=== PATIENT | female | born 1940 | race Caucasian/White ===

== ENCOUNTER 2017-02-08 08:12 | Day surgery (SDC) | payer MEDICARE, BC ==
[~2017-02-08 08:12] MED LIST: Metoclopramide 10 MG/2 ML SDV IV PRN; Sodium Chloride 0.9% 1,000 ML IV SCH; Sodium Chloride 0.9% 10 ML Syringe FLUSH PRN
[2017-02-08] MEDS ORDERED: Propofol 200 MG/20 ML SDV ONE (10:10)
[2017-02-08 11:22] VITALS: BP 130/68
--- NOTE | 2017-02-09 16:19 | OR ---
DATE OF OPERATION: 02/08/2017 PREOPERATIVE DIAGNOSIS: History of polyps. POSTOPERATIVE DIAGNOSIS: Diverticulosis. PROCEDURE: Colonoscopy. ANESTHESIA: General anesthesia per Michael العراقي CRNA. ESTIMATED BLOOD LOSS: Less than 20 mL. DESCRIPTION OF PROCEDURE: After informed consent was obtained, the patient was taken to the endoscopy suite, and placed in a left lateral decubitus position with all pressure points, bony prominences, and neurovascular bundles padded appropriately and with no undue tension. The department of anesthesia initiated cardiopulmonary monitoring and performed sedation. A digital rectal examination was performed which was within normal limits. Then, a well lubricated Olympus colonoscope was inserted into the anus and advanced through the rectum, sigmoid colon, descending colon, splenic flexure, transverse colon, hepatic flexure, ascending colon, and cecum. The prep was excellent allowing for complete visualization of all mucosal surfaces. There were diverticula in the sigmoid colon, none of which were impacted, bleeding, or inflamed. The scope was slowly withdrawn from the cecum and all surface mucosal anatomy was again reviewed without any further abnormalities being identified. The colonoscope was straightened, as much air as possible was evacuated, and the colonoscope was removed. The patient tolerated the procedure well and was taken to the postanesthesia care unit in stable condition. MARIANGEL/RAMYA /[id number]
== END 2017-02-08 12:00 | disposition home or self-care (01) ==
LOC: LB.SDS 08:12
PROVIDERS: ATTEND Surgery
DX: Z12.11 Encounter for screening for malignant neoplasm of colon (principal); K57.30 Diverticulosis of large intestine without perforation or abscess without bleeding; Z88.8 Allergy status to other drugs, medicaments and biological substances; Z79.82 Long term (current) use of aspirin; Z79.899 Other long term (current) drug therapy
CPT/HCPCS: G0105; J2704; J7040

== ENCOUNTER 2017-11-25 20:52 | Emergency (ER) | payer MEDICARE, BC ==
[2017-11-25] MEDS ORDERED: Morphine 2 MG/ML Syringe SUBCUT ONE (22:00)
[2017-11-25] MEDS ORDERED: Ondansetron 4 MG/2 ML SDV IVPUSH ONE (22:45)
[2017-11-25] MEDS ORDERED: Morphine 2 MG/ML Syringe IVPUSH ONE (23:40)
[2017-11-25] MEDS ORDERED: Ketorolac 30 MG/ML SDV IVPUSH ONE (23:45)
--- NOTE | 2017-11-25 23:54 | ER ---
HISTORY OF PRESENT ILLNESS: A 77-year-old female who comes in by ambulance. She fell tonight while twisting. She states that she hurt her right hip. She thinks she broke it. She denies any other injuries. She is pointing directly over the greater trochanter area on the right hip when describing where it hurts. She states she cannot bear weight on that leg, and she noticed that her foot was turned out. OBJECTIVE: GENERAL APPEARANCE: The patient is awake and alert. She is pleasant and talkative. VITAL SIGNS: Reviewed as listed. EXTREMITIES: Examining the right hip reveals tenderness over the greater trochanter area that is quite localized. There is no pain with palpation of the inguinal area and the thigh and knee are nontender. She has good circulation involving the lower leg and foot on the right side. LAB AND X-RAY: X-ray of the right hip was obtained showing a fracture through the greater and lesser trochanter. This looks like there is some impaction as well. DIAGNOSIS: Hip fracture, right side. TREATMENT PLAN: I consulted with Orthopedics Dr. Wyman, who accepted the patient. He then put me in touch with the hospitalist, Dr. Beckford, who accepted the patient and she will be transferred by ground ambulance [facility]. She was given Morphine and Toradol IV for pain. And Zofran for nausea before leaving our facility. CRS/MODL /[id number] MTDD
[2017-11-26 03:45] VITALS: BP 148/75
--- NOTE | 2017-11-28 02:07 | CR ---
RIGHT HIP, 11/25/17 There is a nondisplaced avulsion fracture through the base of the lesser trochanter. There is also an oblique intertrochanteric fracture with minimal displacement. There is slight foreshortening of the right femoral neck suggesting a mildly impacted subcapital femoral neck fracture also. No other acute abnormalities. [id number] [facility]
== END 2017-11-26 00:40 ==
LOC: LB.ED 20:52
DX: S72.111A Displaced fracture of greater trochanter of right femur, initial encounter for closed fracture (principal); S72.121A Displaced fracture of lesser trochanter of right femur, initial encounter for closed fracture; X50.1XXA Overexertion from prolonged static or awkward postures, initial encounter; W19.XXXA Unspecified fall, initial encounter
CPT/HCPCS: 36415; 51702; 73552-RT; 80053; 85025; 85610; 96372; 96374; 96375; 99283; 99284-25; A0425; A0429; J1885; J2270; J2405

== ENCOUNTER 2017-12-08 11:02 | Inpatient (IN) | payer MEDICARE, BC ==
[2017-12-08] MEDS ORDERED: Tuberculin, PPD 5 Units/0.1 ML 1 ML MDV IDERM ONE (16:59)
[2017-12-08] MEDS ORDERED: Albuterol 8 GM Inhaler INH PRN (17:00)
[2017-12-08] MEDS ORDERED: Calcium Carbonate 500 MG Tab.Chew PO PRN (17:00)
[2017-12-08] MEDS ORDERED: Zolpidem 5 MG Tab PO PRN (17:00)
--- NOTE | 2017-12-08 17:07 | PCM.HP ---
H&P History of Present Illness - General Date of Service: 12/08/17 Admit Problem/Dx: Admission Diagnosis/Problem Admission Diagnosis/Problem Weakness Source of Information: Patient History Limitations: Reports: No Limitations - History of Present Illness Initial Comments - Free Text/Narative: Pt had right hip fracture and underwent right cephalomedullary nailing done by on 11/26/17. Pt has under gone OT and pt and presently able to ambulate with single assistance and walker. she is weight bearing. She has her suture removed today and transferred her for ot and PT care. Pt claims she feels fine. no fever or chills. Not much pain at the surgical site. Improves with: Reports: None Worsens with: Reports: None Associated Symptoms: Denies: Confusion, Chest Pain, Cough, Diaphoresis, Fever/ Chills, Headaches, Nausea/Vomiting, Rash, Seizure, Shortness of Breath, Syncope , Weakness Right Leg Pain Score (Numeric/FACES): 4 - Related Data Allergies/Adverse Reactions: Allergies Allergy/AdvReac Type Severity Reaction Status Date / Time fluticasone propionate Allergy Cannot Verified 12/08/17 16:25 [From Advair Diskus] Remember niacin Allergy Cannot Verified 12/08/17 16:25 Remember pentazocine lactate Allergy Cannot Verified 12/08/17 16:25 [From Kwame] Remember salmeterol xinafoate Allergy Cannot Verified 12/08/17 16:25 [From Advair Diskus] Remember Home Medications: Home Meds Albuterol [Ventolin HFA] 1 - 2 puff INH QID PRN 11/26/17 [History] Calcium Carbonate [Calcium] 500 mg PO Q4HR PRN 11/26/17 [History] Esomeprazole [NexIUM] 40 mg PO DAILY 11/26/17 [History] Aspirin 81 mg PO BID 12/08/17 [History] Calcium Carbonate/Vitamin D3 [Calcium 500-Vit D3 200 Caplet] 1 tab PO BIDMEALS 12/08/17 [History] Ergocalciferol (Vitamin D2) [Vitamin D2] 50,000 unit PO WEEKLY 12/08/17 [History ] Naproxen 1 tab PO Q12HR 12/08/17 [History] Polyethylene Glycol 3350 17 gm PO DAILY 12/08/17 [History] Sennosides/Docusate Sodium [Senna-Docusate Sodium] 1 tab PO BID 12/08/17 [ History] Warfarin [Coumadin] 5 mg PO DAILY 12/08/17 [History] Zolpidem [Ambien] 5 mg PO QPM PRN 12/08/17 [History] traMADol [Ultram] 50 mg PO Q4H PRN 12/08/17 [History] Past Medical History HEENT History: Reports: Cataract, Impaired Vision, Other (See Below) Other HEENT History: Benign paroxismal positional vertigo Cardiovascular History: Reports: Heart Murmur, Hypertension Respiratory History: Reports: Asthma, Sleep Apnea, Other (See Below) Other Respiratory History: environmental allergies Gastrointestinal History: Reports: GERD, Pancreatitis Other Gastrointestinal History: autoimmune pancreatitis, 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 stress incontinence [employer] History: Reports: Ectopic , Other OB/BYN History: 1965 etopic Musculoskeletal History: Reports: Arthritis, Back Pain, Chronic Other Musculoskeletal History: hx # vertebrae T-5-7, possibly d/t osteoprosis/ osteoarthritis +a fall Neurological History: Reports: TIA Other Neuro History: april 29 TIA Hematologic History: Reports: Anesthesia Reaction, Blood Transfusion(s), Other ( See Below) Other Hematologic History: unexpected E antibody for blood transfusions Immunologic History: Reports: Other (See Below) Other Immunologic History: autoimmune pancreatitis - Infectious Disease History Infectious Disease History: Reports: Chicken Pox, Influenza, Measles, Mumps, Pertussis (Whooping Cough), Rubella, Other (See Below) Other Infectious Disease History: polio at 13yrs old - Past Surgical History GI Surgical History: Reports: Appendectomy Other GI Surgeries/Procedures: 1963 apendectomy wit etopic Female Surgical History: Reports: Other (See Below) Other Female Surgeries/Procedures: fallopian tubes removed with etopic sx Musculoskeletal Surgical History: Reports: Knee Replacement, Other (See Below) Other Musculoskeletal Surgeries/Procedures:: hip # with two rods, bilateral knee replacement Social & Family History - Family History Family Medical History: Noncontributory - Tobacco Use Smoking Status *Q: Never Smoker Second Hand Smoke Exposure: No - Caffeine Use Caffeine Use: Reports: Soda, Tea Other Caffeine Use: 3 bags of tea/day, 20oz pop/day - Recreational Drug Use Recreational Drug Use: No H&P Review of Systems - Review of Systems: Review Of Systems: See Below General: Denies: Fever, Chills, Malaise, Weakness, Night Sweats HEENT: Denies: Rhinitis, Sinus Congestion, Sore Throat, Visual Changes Pulmonary: Denies: Shortness of Breath, Wheezing, Cough, Sputum Cardiovascular: Denies: Chest Pain, Lightheadedness Gastrointestinal: Denies: Abdominal Pain, Constipation, Diarrhea, Nausea, Vomiting Genitourinary: Denies: Dysuria, Frequency, Discharge, Abnormal Menses Musculoskeletal: Denies: Neck Pain, Shoulder Pain, Foot Pain, Joint Pain, Joint Swelling Skin: Reports: Wound. Denies: Pruritis, Rash Psychiatric: Denies: Confusion Exam - Exam Exam: See Below - Vital Signs Vital Signs: Last Vital Signs Temp 98.3 F 12/08/17 14:05 Pulse 79 12/08/17 14:05 Resp 16 12/08/17 14:05 BP 142/62 H 12/08/17 14:05 Pulse Ox 100 12/08/17 14:05 Weight: 73.391 kg - Exam General: Alert HEENT: PERRLA, Hearing Intact, Mucosa Moist & [place], Nares Patent, Normal Nasal Septum, Posterior Pharynx Clear, Conjunctiva Clear, EOMI, EACs Clear, TMs Clear Neck: Supple, Trachea Midline, 2 Lungs: Clear to Auscultation, Normal Respiratory Effort Cardiovascular: Regular Rate, Regular Rhythm GI/Abdominal Exam: Normal Bowel Sounds, Soft, Non-Tender, No Organomegaly, No Distention, No Abnormal Bruit, No Mass, Pelvis Stable Extremities: Normal Range of Motion, Non-Tender, No Pedal Edema, Normal Capillary Refill, Other (right hip: there is well healed wound over the lateeral asepct of the hip and upper thigh. no skin dehiscence. minimal tenderness around the wound. there is skin bruising over the medail asepct of the thigh and upper leg. able to weight bear.) *Q Meaningful Use (ADM) - VTE *Q VTE Criteria *Q: - Stroke *Q Stroke Criteria *Q: - AMI *Q AMI Criteria *Q: - Problem List (1) Status post hip surgery SNOMED Code(s): 128946562 ICD Code: Z98.890 - OTHER SPECIFIED POSTPROCEDURAL STATES Status: Acute Current Visit: Yes Problem List Initiated/Reviewed/Updated: Yes Orders Last 24hrs: Active Orders 24 hr Category Date Time Status Patient Status [ADT] Routine ADT 12/08/17 16:49 Ordered Bedrest Bathroom Privileges [RC] ASDIRECTED Care 12/08/17 16:49 Ordered Height and Weight [RC] UPON Care 12/08/17 16:49 Ordered Oxygen Therapy [RC] PRN Care 12/08/17 16:49 Ordered VTE/DVT Education [RC] Per Unit Routine Care 12/08/17 16:49 Ordered Vital Signs [RC] Q4H Care 12/08/17 16:49 Ordered OT Evaluation and Treatment [CONS] Routine Cons 12/08/17 16:49 Ordered PT Evaluation and Treatment [CONS] Routine Cons 12/08/17 16:49 Ordered Regular Diet [DIET] Diet 12/08/17 Dinner Ordered CULTURE MRSA SURVEY [RM] Routine Lab 12/08/17 16:22 Received INR,PT,PROTHROMBIN TIME [COAG] Routine Lab 12/09/17 08:00 Ordered Albuterol [Ventolin HFA] Med 12/08/17 17:00 Ordered 1 - 2 puff INH QID PRN Aspirin Med 12/08/17 20:00 Ordered 81 mg PO BID Calcium Carbonate Med 12/08/17 17:00 Ordered 500 mg PO Q4HR PRN Calcium Carbonate/Vitamin D3 [Calcium Carbonate/Vitamin Med 12/08/17 17:00 Ordered D 1250 MG-200 Unit] 1 tab PO BIDMEALS Docusate Sodium/Sennosides [Senna Plus] Med 12/08/17 20:00 Ordered 1 tab PO BID Ergocalciferol (Vitamin D2) [Vitamin D2] Med 12/08/17 17:00 Ordered 50,000 units PO WEEKLY Esomeprazole [NexIUM] Med 12/09/17 08:00 Ordered 40 mg PO DAILY Naproxen [Naprosyn] Med 12/08/17 20:00 Ordered 1 tab PO Q12HR Polyethylene Glycol 3350 [MiraLAX] Med 12/09/17 08:00 Ordered 17 gm PO DAILY Tuberculin, PPD [Aplisol] Med 12/08/17 16:59 Once 5 unit IDERM ONETIME ONE Warfarin [Coumadin] Med 12/09/17 08:00 Ordered 5 mg PO DAILY Zolpidem [Ambien] Med 12/08/17 17:00 Ordered 5 mg PO QPM PRN traMADol [Ultram] Med 12/08/17 17:00 Ordered 50 mg PO Q4H PRN Resuscitation Status Routine Resus Stat 12/08/17 16:49 Ordered Medication Orders Tuberculin PPD (Aplisol) 5 unit IDERM ONETIME ONE Stop: 12/08/17 17:00 Assessment/Plan Comment:: Assessment : S/P Right hip surgery Plan: pt has been progressing well. The surgical site appears clean and [id number]. Will have ot and pt evaluation. Will continue her discharge medications. When pt is able to do her ADLs with out help and able to ambulate with out pain will plan on discharge. Also I have ordered INR for tomorrow.
[2017-12-08] MEDS: Calcium Carbonate/Vitamin D3 1250 MG-200 Unit Tab PO SCH (18:20)
[2017-12-08] MEDS: traMADol 50 MG Tab PO PRN ×2 (18:38→23:00)
[2017-12-08] MEDS: Aspirin 81 MG Tab.Chew PO SCH (19:29)
[2017-12-08] MEDS: Naproxen 250 MG Tab PO SCH (19:29)
[2017-12-09] MEDS: traMADol 50 MG Tab PO PRN ×2 (06:40→12:37)
[2017-12-09] MEDS: Esomeprazole 40 MG Cap PO SCH (08:17)
[2017-12-09] MEDS: Naproxen 250 MG Tab PO SCH ×2 (08:17→19:55)
[2017-12-09] MEDS: Aspirin 81 MG Tab.Chew PO SCH ×2 (08:17→19:55)
[2017-12-09] MEDS: Calcium Carbonate/Vitamin D3 1250 MG-200 Unit Tab PO SCH ×2 (08:17→17:16)
[2017-12-09] MEDS: Polyethylene Glycol 3350 Powder 17 GM Packet PO SCH (08:20)
[2017-12-09] MEDS: Warfarin 5 MG Tab PO SCH (17:17)
[2017-12-10] MEDS: Aspirin 81 MG Tab.Chew PO SCH ×2 (08:16→20:06)
[2017-12-10] MEDS: Polyethylene Glycol 3350 Powder 17 GM Packet PO SCH (08:17)
[2017-12-10] MEDS: Esomeprazole 40 MG Cap PO SCH (08:17)
[2017-12-10] MEDS: Calcium Carbonate/Vitamin D3 1250 MG-200 Unit Tab PO SCH ×2 (08:17→17:27)
[2017-12-10] MEDS: Naproxen 250 MG Tab PO SCH ×2 (08:17→20:06)
[2017-12-10] MEDS: traMADol 50 MG Tab PO PRN (08:39)
[2017-12-10] MEDS: Warfarin 5 MG Tab PO SCH (17:27)
[2017-12-11] MEDS: Naproxen 250 MG Tab PO SCH ×2 (08:26→19:28)
[2017-12-11] MEDS: Calcium Carbonate/Vitamin D3 1250 MG-200 Unit Tab PO SCH ×2 (08:27→17:39)
[2017-12-11] MEDS: Aspirin 81 MG Tab.Chew PO SCH ×2 (08:27→19:28)
[2017-12-11] MEDS: Esomeprazole 40 MG Cap PO SCH (08:27)
[2017-12-11] MEDS: Polyethylene Glycol 3350 Powder 17 GM Packet PO SCH (08:27)
[2017-12-11] MEDS: traMADol 50 MG Tab PO PRN ×3 (08:38→23:03)
[2017-12-11] MEDS: Warfarin 5 MG Tab PO SCH (17:39)
[2017-12-12] MEDS: Calcium Carbonate/Vitamin D3 1250 MG-200 Unit Tab PO SCH ×2 (07:32→17:45)
[2017-12-12] MEDS: Aspirin 81 MG Tab.Chew PO SCH ×2 (07:32→20:34)
[2017-12-12] MEDS: Naproxen 250 MG Tab PO SCH (07:32)
[2017-12-12] MEDS: Polyethylene Glycol 3350 Powder 17 GM Packet PO SCH (07:32)
[2017-12-12] MEDS: Esomeprazole 40 MG Cap PO SCH (07:33)
[2017-12-12] MEDS: traMADol 50 MG Tab PO PRN ×2 (08:04→17:47)
[2017-12-12] MEDS: Warfarin 5 MG Tab PO SCH (17:45)
[2017-12-13] MEDS: Calcium Carbonate/Vitamin D3 1250 MG-200 Unit Tab PO SCH (07:59)
[2017-12-13] MEDS: Esomeprazole 40 MG Cap PO SCH (07:59)
[2017-12-13] MEDS: Aspirin 81 MG Tab.Chew PO SCH ×2 (07:59→20:10)
[2017-12-13] MEDS: Polyethylene Glycol 3350 Powder 17 GM Packet PO SCH (07:59)
[2017-12-13] MEDS: traMADol 50 MG Tab PO PRN ×2 (08:04→12:58)
[2017-12-13] MEDS: Warfarin 5 MG Tab PO SCH (17:21)
[2017-12-13] MEDS: Calcium Carbonate/Vitamin D3 1500 MG-400 Units Tab PO SCH (17:21)
--- NOTE | 2017-12-13 18:57 | PCM.DCSUM1 ---
Discharge Summary - Hospital Course Free Text/Narrative:: Pt was admitted for OT and PT s/p intramedullary nailing of the right hip fracture done on 11/26/17. Pt has done well with ambulation, weigh bearing and transfer. OP and PT have cleared her for discharge home as she can take care of the ADLs,with minimal help. Pt has not concerns. Brief History: Pt has right hip intrameduallary nailing done at [facility] on 11/26/17 and was transfered to [facility] for physical rehabilitation. - Discharge Data Discharge Date: 12/14/17 Discharge Disposition: Home, Self-Care 01 Condition: Good - Discharge Diagnosis/Problem(s) (1) Status post hip surgery SNOMED Code(s): 196155694 ICD Code: Z98.890 - OTHER SPECIFIED POSTPROCEDURAL STATES Status: Acute Current Visit: Yes - Patient Summary/Data Consults: Consultations 12/08/17 16:49 OT Evaluation and Treatment [CONS] Routine Please Evaluate and Treat. OT Reason for Consult: ADL's This query below is only for informational purposes and is not editable. PT Evaluation and Treatment [CONS] Routine Please Evaluate and Treat. PT Reason for Consult: Strengthening This query below is only for informational purposes and is not editable. - Patient Instructions Diet: Regular Diet as Tolerated Fluid Restriction: 1500 mL Activity: As Tolerated Showering/Bathing: May Shower Wound/Incision Care: Keep Operative Site/Wound Site Clean and Dry - Discharge Plan Home Medications: Home Meds Albuterol [Ventolin HFA] 1 - 2 puff INH QID PRN 11/26/17 [History] Calcium Carbonate [Calcium] 500 mg PO Q4HR PRN 11/26/17 [History] Esomeprazole [NexIUM] 40 mg PO DAILY 11/26/17 [History] Aspirin 81 mg PO BID 12/08/17 [History] Calcium Carbonate/Vitamin D3 [Calcium 500-Vit D3 200 Caplet] 1 tab PO BIDMEALS 12/08/17 [History] Ergocalciferol (Vitamin D2) [Vitamin D2] 50,000 unit PO WEEKLY 12/08/17 [History ] Polyethylene Glycol 3350 17 gm PO DAILY 12/08/17 [History] Sennosides/Docusate Sodium [Senna-Docusate Sodium] 1 tab PO BID 12/08/17 [ History] Warfarin [Coumadin] 5 mg PO DAILY 12/08/17 [History] Zolpidem [Ambien] 5 mg PO QPM PRN 12/08/17 [History] traMADol [Ultram] 50 mg PO Q4H PRN 12/08/17 [History] traMADol [Ultram] 50 mg PO Q4H PRN tablet 12/13/17 [Rx] - Discharge Summary/Plan Comment DC Time >30 min.: Yes Discharge Summary/Plan Comment: Physical activity per therapy plan. Continue home therapy exercise. PT and INR once a week. Followup with Dr. Salas on 01/16/18 for followup. - General Info Date of Service: 12/14/17 Functional Status: Reports: Tolerating Diet, Ambulating, Urinating - Review of Systems General: Denies: Fever, Weakness HEENT: Denies: Rhinitis, Visual Changes Pulmonary: Denies: Sputum, Hemoptysis Cardiovascular: Denies: Chest Pain, Lightheadedness Gastrointestinal: Denies: Nausea, Vomiting Genitourinary: Denies: Dysuria, Frequency Musculoskeletal: Denies: Joint Pain, Joint Swelling Skin: Reports: Bruising. Denies: Pruritis - Patient Data Vitals - Most Recent: Last Vital Signs Temp 98.4 F 12/13/17 10:00 Pulse 83 12/13/17 10:00 Resp 18 12/13/17 10:00 BP 123/73 12/13/17 10:00 Pulse Ox 97 12/13/17 10:00 Weight - Most Recent: 73.028 kg Med Orders - Current: Current Medications Albuterol (Ventolin Hfa) 0 gm INH QID PRN PRN Reason: Shortness of Breath Aspirin (Aspirin) 81 mg PO BID [facility] Last Admin: 12/13/17 07:59 Dose: 81 mg Calcium Carbonate (Caltrate 600+D 1500 Mg-400 Units) 1 tab PO BIDMEALS [facility] Last Admin: 12/13/17 17:21 Dose: 1 tab Calcium Carbonate/Glycine (Tums) 500 mg PO Q4HR PRN PRN Reason: GERD Ergocalciferol (Vitamin D2) 50,000 units PO Th@0800 [facility] Esomeprazole Magnesium (Nexium) 40 mg PO DAILY [facility] Last Admin: 12/13/17 07:59 Dose: 40 mg Polyethylene Glycol (Miralax) 17 gm PO DAILY [facility] Last Admin: 12/13/17 07:59 Dose: 17 gm Senna/Docusate Sodium (Senna Plus) 1 tab PO BID [facility] Last Admin: 12/13/17 07:59 Dose: 1 tab Tramadol HCl (Ultram) 50 mg PO Q4H PRN PRN Reason: PAIN Last Admin: 12/13/17 12:58 Dose: 50 mg Warfarin Sodium (Coumadin) 5 mg PO DAILY@1800 [facility] Last Admin: 12/13/17 17:21 Dose: 5 mg Zolpidem Tartrate (Ambien) 5 mg PO QPM PRN PRN Reason: Insomnia Discontinued Medications Calcium Carbonate (Calcium Carbonate/Vitamin D 1250 Mg-200 Unit) 1 tab PO BIDMEALS [facility] Last Admin: 12/13/17 07:59 Dose: 1 tab Naproxen (Naprosyn) 250 mg PO Q12HR [facility] Last Admin: 12/12/17 07:32 Dose: 250 mg Tuberculin PPD (Aplisol) 5 unit IDERM ONETIME ONE Stop: 12/08/17 17:00 Last Admin: 12/08/17 19:51 Dose: 5 unit - Exam General: Reports: Alert, Oriented HEENT: Reports: Pupils Equal, Pupils Reactive, EOMI, Mucous Membr. Moist/[place] Neck: Reports: Supple Lungs: Reports: Clear to Auscultation, Normal Respiratory Effort Cardiovascular: Reports: Regular Rate, Regular Rhythm GI/Abdominal Exam: Normal Bowel Sounds, Soft, Non-Tender, No Organomegaly, No Distention, No Abnormal Bruit, No Mass, Pelvis Stable Extremities: Other (There is well healed scar over the lateral aspect of right hip. Minimal tenerensss and bruising of the skin. Good ROM of the right hip. Ambulate and wieght bearing well. ) *Q Meaningful Use (DIS) - VTE *Q VTE Criteria *Q: - Stroke *Q Stroke Criteria *Q: - AMI *Q AMI Criteria *Q:
[2017-12-14] MEDS: traMADol 50 MG Tab PO PRN (04:26)
[2017-12-14] MEDS: Esomeprazole 40 MG Cap PO SCH (07:19)
[2017-12-14] MEDS: Polyethylene Glycol 3350 Powder 17 GM Packet PO SCH (07:19)
[2017-12-14] MEDS: Calcium Carbonate/Vitamin D3 1500 MG-400 Units Tab PO SCH (07:19)
[2017-12-14] MEDS: Aspirin 81 MG Tab.Chew PO SCH (07:19)
[2017-12-14 10:08] VITALS: BP 120/66
[2017-12-15] MEDS ORDERED: Ergocalciferol (Vitamin D2) 50,000 Unit Cap PO SCH (08:00)
== END 2017-12-14 14:30 | disposition home or self-care (01) | DRG 948 ==
LOC: LB.MS 11:02 → UNDOADMIN 11:02 → LB.MS 13:33 → UNDOADMIN 13:33 → LB.MS 16:49
PROVIDERS: ADMIT Family Medicine; ATTEND Family Medicine
DX: R53.1 Weakness (principal); S72.001D Fracture of unspecified part of neck of right femur, subsequent encounter for closed fracture with routine healing; Z98.890 Other specified postprocedural states; Z66 Do not resuscitate; Z86.73 Personal history of transient ischemic attack (TIA), and cerebral infarction without residual deficits; Z11.1 Encounter for screening for respiratory tuberculosis; M54.9 Dorsalgia, unspecified; G89.29 Other chronic pain; M19.90 Unspecified osteoarthritis, unspecified site; J45.909 Unspecified asthma, uncomplicated; K21.9 Gastro-esophageal reflux disease without esophagitis; H54.7 Unspecified visual loss; Z88.8 Allergy status to other drugs, medicaments and biological substances; Z96.653 Presence of artificial knee joint, bilateral; Z79.82 Long term (current) use of aspirin; Z79.01 Long term (current) use of anticoagulants
CPT/HCPCS: 85610; 86580; 97116-GP; 97161-GP; 97165-GO; 97530-GP; 97535-GO; A9270-GY

== ENCOUNTER 2018-05-27 15:37 | Emergency (ER) | payer MEDICARE, BC ==
[2018-05-27] MEDS ORDERED: Ibuprofen 800 MG Tab ONE ×4 (18:01→18:16)
[2018-05-27 18:32] VITALS: BP 142/84
--- NOTE | 2018-05-27 18:52 | EDM.PDOC ---
ED HPI GENERAL MEDICAL PROBLEM - General Chief Complaint: General Stated Complaint: HIP PAIN Time Seen by Provider: 05/27/18 18:00 Source of Information: Reports: Patient, Family History Limitations: Reports: No Limitations - History of Present Illness INITIAL COMMENTS - FREE TEXT/NARRATIVE: Patient is a 77 year old woman who fell and broke her pelvis on May 04, 2018. She has been on pain pills and has been doing PT for the last few weeks per Dr. Mcdowell's treatment plan but she feels that her pain has worsened with all the activity and she wonders if the pelvic fractures are healing correctly and she would like a study to determin the answer to her question. 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: NSAIDS, Other Medication(s) (Tramadol) - Related Data Allergies Allergy/AdvReac Type Severity Reaction Status Date / Time fluticasone propionate Allergy Cannot Verified 12/08/17 16:25 [From Advair Diskus] Remember niacin Allergy Cannot Verified 12/08/17 16:25 Remember pentazocine lactate Allergy Cannot Verified 12/08/17 16:25 [From Talwin] Remember salmeterol xinafoate Allergy Cannot Verified 12/08/17 16:25 [From Advair Diskus] Remember Home Meds: Home Meds Albuterol [Ventolin HFA] 1 - 2 puff INH QID PRN 11/26/17 [History] Calcium Carbonate [Calcium] 500 mg PO Q4HR PRN 11/26/17 [History] Esomeprazole [NexIUM] 40 mg PO DAILY 11/26/17 [History] Aspirin 81 mg PO BID 12/08/17 [History] Calcium Carbonate/Vitamin D3 [Calcium 500-Vit D3 200 Caplet] 1 tab PO BIDMEALS 12/08/17 [History] Ergocalciferol (Vitamin D2) [Vitamin D2] 50,000 unit PO WEEKLY 12/08/17 [History ] Polyethylene Glycol 3350 17 gm PO DAILY 12/08/17 [History] Sennosides/Docusate Sodium [Senna-Docusate Sodium] 1 tab PO BID 12/08/17 [ History] Warfarin [Coumadin] 5 mg PO DAILY 12/08/17 [History] Zolpidem [Ambien] 5 mg PO QPM PRN 12/08/17 [History] traMADol [Ultram] 50 mg PO Q4H PRN tablet 12/13/17 [Rx] Past Medical History HEENT History: Reports: Cataract, Impaired Vision, Other (See Below) Other HEENT History: Benign paroxismal positional vertigo Cardiovascular History: Reports: Heart Murmur, Hypertension Respiratory History: Reports: Asthma, Sleep Apnea, Other (See Below) Other Respiratory History: environmental allergies Gastrointestinal History: Reports: GERD, Pancreatitis Other Gastrointestinal History: autoimmune pancreatitis, 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: Ectopic , Other [employer] TECHNICAL ARCHITECT History: 1965 etopic Musculoskeletal History: Reports: Arthritis, Back Pain, Chronic Other Musculoskeletal History: hx # vertebrae T-5-7, possibly d/t osteoprosis/ osteoarthritis +a fall Neurological History: Reports: TIA Other Neuro History: april 29 TIA Hematologic History: Reports: Anesthesia Reaction, Blood Transfusion(s), Other ( See Below) Other Hematologic History: unexpected E antibody for blood transfusions Immunologic History: Reports: Other (See Below) Other Immunologic History: autoimmune pancreatitis - Infectious Disease History Infectious Disease History: Reports: Chicken Pox, Influenza, Measles, Mumps, Pertussis (Whooping Cough), Rubella, Other (See Below) Other Infectious Disease History: polio at 13yrs old - Past Surgical History GI Surgical History: Reports: Appendectomy Other GI Surgeries/Procedures: 1963 apendectomy wit etopic Female Surgical History: Reports: Other (See Below) Other Female Surgeries/Procedures: fallopian tubes removed with etopic sx Musculoskeletal Surgical History: Reports: Knee Replacement, Other (See Below) Other Musculoskeletal Surgeries/Procedures:: hip # with two rods, bilateral knee replacement Social & Family History - Family History Family Medical History: Noncontributory - Caffeine Use Caffeine Use: Reports: Soda, Tea Other Caffeine Use: 3 bags of tea/day, 20oz pop/day ED ROS GENERAL - Review of Systems Review Of Systems: See Below Constitutional: Reports: No Symptoms HEENT: Reports: No Symptoms Respiratory: Reports: No Symptoms Cardiovascular: Reports: No Symptoms Endocrine: Reports: No Symptoms GI/Abdominal: Reports: No Symptoms : Reports: No Symptoms Musculoskeletal: Reports: Other (Pain in pelvic region.) Skin: Reports: No Symptoms Neurological: Reports: No Symptoms Psychiatric: Reports: No Symptoms Hematologic/Lymphatic: Reports: No Symptoms ED EXAM, GENERAL - Physical Exam Exam: See Below Exam Limited By: No Limitations General Appearance: Alert, WD/WN, No Apparent Distress Ears: Normal External Exam, Normal Canal, Hearing Grossly Normal, Normal TMs Nose: Normal Inspection, Normal Mucosa, No Blood Throat/Mouth: Normal Inspection, Normal Lips, Normal Teeth, Normal Gums, Normal Oropharynx, Normal Voice, No Airway Compromise Head: Atraumatic, Normocephalic Neck: Normal Inspection, Supple, Non-Tender, Full Range of Motion Respiratory/Chest: No Respiratory Distress, Lungs Clear, Normal Breath Sounds, No Accessory Muscle Use, Chest Non-Tender Cardiovascular: Normal Peripheral Pulses, Regular Rate, Rhythm, No Edema, No Gallop, No JVD, No Murmur, No Rub Extremities: Other (Pain in the pelvic region. CT of pelvis shows healing pelvic rim fractures.) Neurological: Alert, Oriented, CN II-XII Intact, Normal Cognition, Normal Gait, Normal Reflexes, No Motor/Sensory Deficits Psychiatric: Normal Affect, Normal Mood Skin Exam: Warm, Dry, Intact, Normal Color, No Rash Course - Vital Signs Text/Narrative:: Patient was given 800 mg of Ibuprofen and after the CT showed healing fractures and her lab work was stable and not worrisome, she wanted to go home. She will follow up with PT and Dr. Mcdowell next week. Last Recorded V/S: Last Vital Signs Temp 36.8 C 05/27/18 18:32 Pulse 88 05/27/18 18:32 Resp 16 05/27/18 18:32 BP 142/84 H 05/27/18 18:32 Pulse Ox 100 05/27/18 18:32 - Orders/Labs/Meds Orders: Active Orders 24 hr Category Date Time Status Pelvis wo Cont [CT] Stat Exams 05/27/18 17:01 Taken Labs: Laboratory Tests 05/27/18 05/27/18 Range/Units 18:05 18:05 WBC 6.5 D (4.0-11.0) K/uL RBC 4.18 (3.80-5.80) M/uL Hgb 11.7 (11.5-16.5) g/dL Hct 34.7 L (37.0-47.0) % MCV 83 (76-96) fL MCH 28.0 (27.0-32.0) pg MCHC 33.7 (31.0-35.0) g/dL RDW 14.9 (11.0-16.0) % Plt Count 245 D (150-500) K/uL MPV 7.8 (6.0-10.0) fL Neut % (Auto) 73.2 H (45.0-70.0) % Lymph % (Auto) 14.9 L (20.0-40.0) % Jennings % (Auto) 7.7 (3.0-10.0) % Eos % (Auto) 2.8 (1.0-5.0) % Baso % (Auto) 1.4 H (0.0-0.5) % Neut # (Auto) 4.75 (2.00-7.50) K/uL Lymph # (Auto) 0.97 L (1.50-4.00) K/uL Jennings # (Auto) 0.50 (0.20-0.80) K/uL Eos # (Auto) 0.18 (0.04-0.40) K/uL Baso # (Auto) 0.09 (0.02-0.10) K/uL Sodium 131 L (136-145) mmol/L Potassium 3.7 (3.5-5.1) mmol/L Chloride 96 L (98-107) mmol/L Carbon Dioxide 31.8 (21.0-32.0) mmol/L Anion Gap 6.9 (5.0-15.0) mmol/L BUN 9 (8-26) mg/dL Creatinine 0.74 (0.55-1.02) mg/dL Est Cr Clr Drug Dosing TNP Estimated GFR (MDRD) > 60 (>60) MLS/MIN BUN/Creatinine Ratio 12.2 (6-25) Glucose 122 H (74-100) mg/dL Calcium 8.8 (8.5-10.1) mg/dL Total Bilirubin 0.6 (0.0-1.0) mg/dL AST 21 (15-37) U/L ALT 19 (12-78) U/L Alkaline Phosphatase 136 H (46-116) U/L Total Protein 7.3 (6.4-8.2) g/dL Albumin 3.3 L (3.4-5.0) g/dL Globulin 4.0 (2.2-4.2) g/dL Albumin/Globulin Ratio 0.8 (0.8-2.0) Meds: Medications Discontinued Medications Generic Name Dose Route Start Last Admin Trade Name Dolores PRN Reason Stop Dose Admin Ibuprofen Confirm 05/27/18 18:01 Motrin Administered 05/27/18 18:02 Dose 800 mg .ROUTE .STK-MED ONE Ibuprofen Confirm 05/27/18 18:14 Motrin Administered 05/27/18 18:15 Dose 800 mg .ROUTE .STK-MED ONE Ibuprofen Confirm 05/27/18 18:16 Motrin Administered 05/27/18 18:17 Dose 800 mg .ROUTE .STK-MED ONE Departure - Departure Time of Disposition: 18:56 Disposition: Home, Self-Care 01 Condition: Good Clinical Impression: Pelvic ring fracture Qualifiers: Encounter type: sequela Fracture type: closed Qualified Code(s): S32.810S - Multiple fractures of pelvis with stable disruption of pelvic ring, sequela - Discharge Information Referrals: PCP,None [Primary Care Provider] - - My Orders Last 24 Hours: My Active Orders 05/27/18 17:01 Pelvis wo Cont [CT] Stat - Assessment/Plan Last 24 Hours: My Active Orders 05/27/18 17:01 Pelvis wo Cont [CT] Stat
--- NOTE | 2018-05-29 03:47 | CT ---
PELVIC CT, 05/27/18 Multislice axial acquisition was performed. Axial images and sagittal and coronal reformations are reviewed. The patient is status post internal fixation of an intertrochanteric fracture with a intramedullary naima and compression screw. The fracture fragments are in anatomic alignment and position. There is a partially healed horizontal fracture through the mid sacrum. There are partially healed fractures through the right acetabulum, anterior column. There are also partially healed fractures through the right pubic bone and inferior pubic ramus. There are old healed fractures through the superior and inferior pubic rami on the left. No other fractures. There is a 4.8 cm founded fluid density lesion in the region of the left ovary and adnexa Cystic ovarian neoplasm should be considered. TEAM CDL DRIVER consultation is recommended. No other significant findings. [id number] [facility]
== END 2018-05-27 18:50 | disposition home or self-care (01) ==
LOC: LB.ED 15:37
DX: S32.810S Multiple fractures of pelvis with stable disruption of pelvic ring, sequela (principal); I10 Essential (primary) hypertension; Z88.8 Allergy status to other drugs, medicaments and biological substances; Z79.01 Long term (current) use of anticoagulants; Z79.899 Other long term (current) drug therapy
CPT/HCPCS: 36415; 72192; 80053; 85025; 96374; 99284-25; A9270-GY

== ENCOUNTER 2018-05-30 07:50 | Emergency (ER) | payer MEDICARE, BC ==
[2018-05-30 09:02] VITALS: BP 146/75
--- NOTE | 2018-05-30 11:14 | CT ---
DATE OF SERVICE: 05/30/18 CLINICAL DATA: CONSTIPATION UNENHANCED ABDOMEN AND PELVIC CT: Multislice acquisition through the abdomen and pelvis without IV or oral contrast was performed. No priors. There are linear densities in both lung bases consistent with linear atelectasis or fibrosis. The lung bases are otherwise clear. The unenhanced liver appears normal. The gallbladder is absent and there are surgical clips in the gallbladder fossa consistent with prior cholecystectomy. The spleen appears normal. The pancreas is unremarkable. The right and left adrenals appear normal. The right and left kidneys appear normal. No nephrocalcinosis or nephrolithiasis. No hydronephrosis or hydroureter. The bladder is fluid-filled and appears normal. There is a 5.8 cm rounded fluid density mass in the region of the left ovary and adnexa. This could represent an ovarian cyst. Cystic ovarian neoplasm should be considered. SURVEY DATA TECHNICIAN consultation is recommended. No evidence of appendicitis. There is diffuse gastric wall thickening. This is probably related to nondistension. Gastritis or an infiltrating process should be considered. There is diverticulosis of the descending and sigmoid colon. No evidence of diverticulitis. No free air. No free fluid. No dilated loops of bowel. No adenopathy. No aortic aneurysm. There is a moderate amount of stool noted throughout the colon. The patient is status post internal fixation of a right hip fracture. There are fractures involving the pubic bones and pubic rami bilaterally. These appear to be subacute or chronic. No other significant findings. [id number] [facility]
--- NOTE | 2018-05-30 16:21 | ER ---
HPI: A 77-year-old lady, who comes in by ambulance with complaints of constipation. She tells me she has not had a good bowel movement in several days. She did fall on May 04, 2018, and sustained a pelvic and sacrum fractures. This happened in [place]. She has been at home since her injury. She is in physical therapy. She states that her pain when she is resting is tolerable. With movement, it seems to be worse. She has been taking Ultram and Aleve on a p.r.n. basis. She does have senna at home that she uses for a laxative, and she likes to eat prunes, but tells me that lately it does not seem to be working so well. She did give herself a Fleet enema yesterday, but did not feel like she had any results OBJECTIVE: GENERAL APPEARANCE: The patient is awake and alert, pleasant, and talkative. No obvious distress. VITAL SIGNS: Reviewed. Blood pressure 157/74, pulse 88, O2 saturations are 100% on room air. ABDOMEN: Soft. Nontender with palpation. Bowel sounds are hypoactive. SKIN: Warm and dry. LUNGS: Clear. CARDIAC: Heart sounds distinct without murmurs. LABORATORY DATA: Labs today include a CBC showing a normal white count and hemoglobin. Viral markers are slightly elevated. Comprehensive metabolic panel is also unremarkable. CT of the abdomen and pelvis reveals the previous fractures, which included mid sacral fracture and 3 pelvic fractures. There is a moderate amount of stool retention in the proximal colon. DIAGNOSIS: Constipation, moderate in nature. TREATMENT PLAN: Magnesium citrate will be prescribed 1 pint taken today. She can repeat this tomorrow if needed. She is to also continue on her Senokot, but I want her to take Senokot-S 2 tablets a day regularly, not p.r.n. The patient is almost out of her Ultram tablets. I will give her a new script for 20 more tablets. I do want the patient to increase her liquid intake slightly and try to incorporate some apple juice or prune juice rather than just whole prunes if she would rather do that. I do want the patient to follow up with Dr. Mcdowell as soon as possible. She states that her next scheduled appointment with him is in 2 weeks. She has been seen 3 times within the last few days in the emergency room. I would like her to follow up with Dr. Mcdowell as soon as she could to keep her primary involved in her care. The patient is here with her daughter. They have no further questions. KWASI/MODGi /[id number]
== END 2018-05-30 10:15 | disposition home or self-care (01) ==
LOC: LB.ED 07:50
DX: K59.00 Constipation, unspecified (principal)
CPT/HCPCS: 36415; 74176; 80053; 85025; 99284; A0425; A0429

== ENCOUNTER 2021-03-09 15:00 | Emergency (ER) | payer MEDICARE, BC ==
[2021-03-09 15:30] VITALS: BP 147/77; PULSE 98
[2021-03-09] MEDS: Ketorolac 30 MG/ML SDV IM ONE (15:30)
[2021-03-09] MEDS: Ketorolac 30 MG/ML SDV ONE (15:50)
--- NOTE | 2021-03-09 17:02 | EDM.PDOC ---
ED HPI GENERAL MEDICAL PROBLEM - General Chief Complaint: General Stated Complaint: BACK PAIN Time Seen by Provider: 03/09/21 15:10 - History of Present Illness INITIAL COMMENTS - FREE TEXT/NARRATIVE: patient here due to worsening of her lower back pain. Reports a remote history of chronic back pain due to disc disease and old fractures. Usually uses a walker. Reports that 3 days ago, she was busy gardening and pushed some heavy pots - and after that night - she notice lower back spasms. no weakness or numbness. tried Aleve and tramadol with some relief. 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 - Related Data Allergies Allergy/AdvReac Type Severity Reaction Status Date / Time fluticasone propionate Allergy Cannot Verified 12/08/17 16:25 [From Advair Diskus] Remember niacin Allergy Cannot Verified 12/08/17 16:25 Remember pentazocine lactate Allergy Cannot Verified 12/08/17 16:25 [From Talwin] Remember salmeterol xinafoate Allergy Cannot Verified 12/08/17 16:25 [From Advair Diskus] Remember Home Meds: Home Meds Albuterol [Ventolin HFA] 1 - 2 puff INH QID PRN 11/26/17 [History] Calcium Carbonate [Calcium] 500 mg PO Q4HR PRN 11/26/17 [History] Esomeprazole [NexIUM] 40 mg PO DAILY 11/26/17 [History] Aspirin 81 mg PO DAILY 12/08/17 [History] Calcium Carbonate/Vitamin D3 [Calcium 500-Vit D3 200 Caplet] 1 tab PO BIDMEALS 12/08/17 [History] Ergocalciferol (Vitamin D2) [Vitamin D2] 50,000 unit PO WEEKLY 12/08/17 [History] Sennosides/Docusate Sodium [Senna-Docusate Sodium] 1 tab PO BID 12/08/17 [History] Warfarin [Coumadin] 5 mg PO DAILY 12/08/17 [History] Zolpidem [Ambien] 5 mg PO QPM PRN 12/08/17 [History] polyethylene glycoL 3350 [Polyethylene Glycol 3350] 17 gm PO DAILY 12/08/17 [History] traMADol [Ultram] 50 mg PO Q4H PRN tablet 12/13/17 [Rx] Cyclobenzaprine [Flexeril] 10 mg PO BEDTIME #10 tab 03/09/21 [Rx] predniSONE [Prednisone] 20 mg PO DAILY 03/09/21 [History] Past Medical History HEENT History: Reports: Cataract, Impaired Vision, Other (See Below) Other HEENT History: Benign paroxismal positional vertigo Cardiovascular History: Reports: Heart Murmur, Hypertension Respiratory History: Reports: Asthma, Sleep Apnea, Other (See Below) Other Respiratory History: environmental allergies Gastrointestinal History: Reports: GERD, Pancreatitis Other Gastrointestinal History: autoimmune pancreatitis, 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 fractured femur. fractuers pelvis Neurological History: Reports: TIA Other Neuro History: april 29 TIA Hematologic History: Reports: Anesthesia Reaction, Blood Transfusion(s), Other (See Below) Other Hematologic History: unexpected E antibody for blood transfusions Immunologic History: Reports: Other (See Below) Other Immunologic History: autoimmune pancreatitis - Infectious Disease History Infectious Disease History: Reports: Chicken Pox, Influenza, Measles, Mumps, Pertussis (Whooping Cough), Rubella, Other (See Below) Other Infectious Disease History: polio at 13yrs old - Past Surgical History GI Surgical History: Reports: Appendectomy Other GI Surgeries/Procedures: 1963 apendectomy wit etopic Female Surgical History: Reports: Other (See Below) Other Female Surgeries/Procedures: fallopian tubes removed with etopic sx Musculoskeletal Surgical History: Reports: Knee Replacement, Other (See Below) Other Musculoskeletal Surgeries/Procedures:: hip # with two rods, bilateral knee replacement Social & Family History - Family History Family Medical History: No Pertinent Family History - Tobacco Use Tobacco Use Status *Q: Never Tobacco User - Caffeine Use Caffeine Use: Reports: None Other Caffeine Use: 3 bags of tea/day, 20oz pop/day ED ROS GENERAL - Review of Systems Review Of Systems: See Below Constitutional: Reports: No Symptoms HEENT: Reports: No Symptoms Respiratory: Reports: No Symptoms Cardiovascular: Reports: No Symptoms Endocrine: Reports: No Symptoms GI/Abdominal: Reports: No Symptoms Musculoskeletal: Reports: Back Pain, Muscle Stiffness Skin: Reports: No Symptoms Neurological: Reports: No Symptoms ED EXAM, GENERAL - Physical Exam Exam: See Below Exam Limited By: No Limitations General Appearance: Alert, WD/WN, No Apparent Distress Eye Exam: Bilateral Eye: EOMI Respiratory/Chest: No Respiratory Distress, Lungs Clear Cardiovascular: Normal Peripheral Pulses GI/Abdominal: Normal Bowel Sounds, Soft Back Exam: Normal Inspection, Decreased Range of Motion, Muscle Spasm, Paraspinal Tenderness. No: Vertebral Tenderness Extremities: Normal Inspection, Normal Range of Motion Neurological: Alert, Oriented, No Motor/Sensory Deficits Psychiatric: Normal Affect, Normal Mood Course - Vital Signs Last Recorded V/S: Last Vital Signs Temp 36.4 C 03/09/21 15:29 Pulse 98 03/09/21 15:29 Resp 16 03/09/21 15:29 BP 147/77 H 03/09/21 15:29 Pulse Ox 98 03/09/21 15:29 - Orders/Labs/Meds Meds: Medications Discontinued Medications Generic Name Dose Route Start Last Admin Trade Name Dolores PRTiff Reason Stop Dose Admin Ketorolac Tromethamine 30 mg 03/09/21 15:33 03/09/21 15:30 Ketorolac 30 Mg/Ml Sdv IM 03/09/21 15:34 30 mg ONETIME ONE Administration Ketorolac Tromethamine Confirm 03/09/21 15:50 Ketorolac 30 Mg/Ml Sdv Administered 03/09/21 15:51 Dose 30 mg .ROUTE .STK-MED ONE - Re-Assessments/Exams Free Text/Narrative Re-Assessment/Exam: was given IM Toradol and Norflex for pain -- reports significant improvement in her pain and able to move around easier than before Departure - Departure Time of Disposition: 16:57 Disposition: Home, Self-Care 01 Condition: Good Clinical Impression: Low back pain Qualifiers: Chronicity: chronic Back pain laterality: bilateral Sciatica presence: without sciatica Qualified Code(s): M54.5 - Low back pain; G89.29 - Other chronic pain - Discharge Information *PRESCRIPTION DRUG MONITORING PROGRAM REVIEWED*: Not Applicable *COPY OF PRESCRIPTION DRUG MONITORING REPORT IN PATIENT TIKA: Not Applicable Prescriptions: Cyclobenzaprine [Flexeril] 10 mg PO BEDTIME #10 tab Instructions: Chronic Back Pain, [id number]-Bafh, Lumbar Strain Referrals: Ernie Mcdowell MD [Primary Care Provider] - Forms: ED Department Discharge Additional Instructions: - avoid any strains on your back - follow up with your PCP in 3-7 days - take muscle relaxants as prescribed ( do not take it with tramadol ). - use heating pads on your lower back - return to the ER if any concerns or worsening of symptoms Sepsis Event Note (ED) - Evaluation Sepsis Screening Result: No Definite Risk - Focused Exam Vital Signs: Vital Signs Temp Pulse Resp BP Pulse Ox 03/09/21 15:29 36.4 C 98 16 147/77 H 98 - Problem List & Annotations (1) Low back pain SNOMED Code(s): 581110561 Code(s): M54.5 - LOW BACK PAIN Status: Acute Priority: Low Current Visit: Yes Qualifiers: Chronicity: chronic Back pain laterality: bilateral Sciatica presence: without sciatica Qualified Code(s): M54.5 - Low back pain; G89.29 - Other chronic pain - Problem List Review Problem List Initiated/Reviewed/Updated: Yes - Assessment/Plan Plan: - avoid any strains on your back - follow up with your PCP in 3-7 days - take muscle relaxants as prescribed ( do not take it with tramadol ). - use heating pads on your lower back - return to the ER if any concerns or worsening of symptoms
[2021-03-09] MEDS: Orphenadrine 60 MG/2 ML Inj IM ONE (19:00)
== END 2021-03-09 17:25 | disposition home or self-care (01) ==
LOC: LB.ED 15:00
DX: G89.29 Other chronic pain (principal); M54.5 Low back pain; I10 Essential (primary) hypertension; J45.909 Unspecified asthma, uncomplicated; K21.9 Gastro-esophageal reflux disease without esophagitis; M19.90 Unspecified osteoarthritis, unspecified site; Z79.82 Long term (current) use of aspirin; Z79.01 Long term (current) use of anticoagulants; Z79.899 Other long term (current) drug therapy; Z88.8 Allergy status to other drugs, medicaments and biological substances; Z86.73 Personal history of transient ischemic attack (TIA), and cerebral infarction without residual deficits
CPT/HCPCS: 96372; 99283; J1885; J2360

== ENCOUNTER 2021-05-19 14:20 | Inpatient (IN) | payer MEDICARE, BC ==
[2021-05-19] MEDS ORDERED: cefTRIAXone 1 GM in Sodium Chloride 0.9% 50 ML IV ONE ×2 (15:11→18:18)
--- NOTE | 2021-05-19 15:19 | EDM.PDOC ---
ED HPI GENERAL MEDICAL PROBLEM - General Chief Complaint: Skin Complaint Stated Complaint: SORE ON LEG Time Seen by Provider: 05/19/21 14:49 Source of Information: Reports: Family History Limitations: Reports: Altered Mental Status - History of Present Illness INITIAL COMMENTS - FREE TEXT/NARRATIVE: pt presents to the ER accompanied by EMS. daughter is caregiver providing jessica weinstein. pt has had increasing lower extremity swelling bilaterally with increased weeping in the last several days. new erythema and warmth to right lower leg starting approximately 1 wk ago according to daughter. slowly spreading to lower leg and knee. pt states TTP to lower legs bilaterally secondary to swelling, R>L. pt denies fever, chills, nausea. she does state "My mental capacity has gone kaput!" daughter also states increasing confusion in recent several weeks with pt needing queuing and increased assistance for ADLs and that she has been increasingly forgetting to take her medications regularly. medical history of vascular dementia, recent tx of UTI approximately 3 weeks ago. Bilateral Back Pain Score (Numeric/FACES): 4 - Related Data Allergies Allergy/AdvReac Type Severity Reaction Status Date / Time fluticasone propionate Allergy Cannot Verified 05/19/21 14:41 [From Advair Diskus] Remember niacin Allergy Cannot Verified 05/19/21 14:41 Remember pentazocine lactate Allergy Cannot Verified 05/19/21 14:41 [From Talwin] Remember salmeterol xinafoate Allergy Cannot Verified 05/19/21 14:41 [From Advair Diskus] Remember Home Meds: Home Meds Aspirin 81 mg PO DAILY 12/08/17 [History] Calcium Carbonate/Vitamin D3 [Calcium 500-Vit D3 200 Caplet] 2 tab PO BIDMEALS 12/08/17 [History] polyethylene glycoL 3350 [Polyethylene Glycol 3350] 17 gm PO DAILY 12/08/17 [History] predniSONE [Prednisone] 20 mg PO DAILY 03/09/21 [History] Calcitonin ([place]) [Miacalcin Nasal [place]] 1 spray NS DAILY 05/19/21 [History] Cetirizine HCl [Aller-Saman] 10 mg PO DAILY 05/19/21 [History] Cholecalciferol (Vitamin D3) [Vitamin D3] 2,000 unit PO DAILY 05/19/21 [History] Furosemide [Lasix] 40 mg PO DAILY 05/19/21 [History] Lidocaine 4% [Aspercreme 4%] 1 patch TRDERM DAILY PRN 05/19/21 [History] Naproxen Sodium [Aleve] 220 mg PO BID PRN 05/19/21 [History] Zinc 50 mg PO DAILY 05/19/21 [History] Past Medical History HEENT History: Reports: Cataract, Impaired Vision, Other (See Below) Other HEENT History: Benign paroxismal positional vertigo Cardiovascular History: Reports: Heart Murmur, Hypertension Respiratory History: Reports: Asthma, Sleep Apnea, Other (See Below) Other Respiratory History: environmental allergies Gastrointestinal History: Reports: GERD, Pancreatitis Other Gastrointestinal History: autoimmune pancreatitis, 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 stress incontinence MENAGERIE CARETAKER History: Reports: Ectopic , Other MENAGERIE CARETAKER History: 1965 etopic Musculoskeletal History: Reports: Arthritis, Back Pain, Chronic Other Musculoskeletal History: hx # vertebrae T-5-7, possibly d/t osteoprosis/osteoarthritis +a fall has compression fractures. fractured femur. fractuers pelvis Neurological History: Reports: TIA Other Neuro History: april 29 TIA Hematologic History: Reports: Anesthesia Reaction, Blood Transfusion(s), Other (See Below) Other Hematologic History: unexpected E antibody for blood transfusions Immunologic History: Reports: Other (See Below) Other Immunologic History: autoimmune pancreatitis - Infectious Disease History Infectious Disease History: Reports: Chicken Pox, Influenza, Measles, Mumps, Pertussis (Whooping Cough), Rubella, Other (See Below) Other Infectious Disease History: polio at 13yrs old - Past Surgical History GI Surgical History: Reports: Appendectomy Other GI Surgeries/Procedures: 1963 apendectomy wit etopic Female Surgical History: Reports: Other (See Below) Other Female Surgeries/Procedures: fallopian tubes removed with etopic sx Musculoskeletal Surgical History: Reports: Knee Replacement, Other (See Below) Other Musculoskeletal Surgeries/Procedures:: hip # with two rods, bilateral knee replacement Social & Family History - Family History Family Medical History: No Pertinent Family History - Caffeine Use Caffeine Use: Reports: None Other Caffeine Use: 3 bags of tea/day, 20oz pop/day ED ROS GENERAL - Review of Systems Review Of Systems: Comprehensive ROS is negative, except as noted in HPI. ED EXAM, SKIN/RASH Exam: See Below Exam Limited By: Altered Mental Status General Appearance: Alert, No Apparent Distress Eye Exam: Bilateral Eye: EOMI, PERRL Throat/Mouth: Normal Inspection, Normal Lips, Normal Teeth, Normal Oropharynx Respiratory/Chest: No Respiratory Distress, Lungs Clear, Normal Breath Sounds, No Accessory Muscle Use Cardiovascular: Normal Peripheral Pulses, Regular Rate, Rhythm, Other (+3-4 pitting edema to lower extremities bilateral) Peripheral Pulses: 1+: Posterior Tibial (L), Posterior Tibial (R), 2+: Radial (L), Radial (R) GI/Abdominal: Soft, Non-Tender Extremities: Pedal Edema, Increased Warmth, Redness Neurological: Alert, Confused, Memory Loss Recent Events Psychiatric: Normal Affect, Normal Mood Skin: Warm (weeping lower extremities. two lesions on left anterior leg and two on right anterior. cobbelstoning of integument just lateral to right knee.) Location, Skin: Lower Extremity, Right Characteristics: Erythematous Associated features: Warmth, Tenderness, Scaling, Weeping #1 Interpretation EKG Date: 05/19/21 Time: 16:20 Rhythm: Other (sinus tachy) [place]: Normal P-Wave: Present QRS: Normal ST-T: Normal QT: Normal Comparison: No Change EKG Interpretation Comments: no ST elevation or depression noted throughout. potential LVH by criteria in (R- wave in aVL 12mm) Course - Vital Signs Last Recorded V/S: Last Vital Signs Temp 97.6 F 05/19/21 14:42 Pulse 101 H 05/19/21 14:42 Resp 20 05/19/21 14:42 BP 121/61 05/19/21 14:42 Pulse Ox 96 05/19/21 14:42 - Orders/Labs/Meds Orders: Active Orders 24 hr Category Date Time Status CBC WITH AUTO DIFF [HEME] Stat Lab 05/19/21 15:06 Ordered COMPREHENSIVE METABOLIC PN,CMP [CHEM] Stat Lab 05/19/21 15:06 Ordered CULTURE BLOOD [BC] Stat Lab 05/19/21 15:07 Ordered CULTURE BLOOD [BC] Stat Lab 05/19/21 15:10 Ordered LACTATE SEPSIS W/ REFLEX [CHEM] Stat Lab 05/19/21 15:07 Ordered MAGNESIUM [CHEM] Stat Lab 05/19/21 15:07 Ordered UA RFX ESMER AND CULT IF INDIC [URIN] Stat Lab 05/19/21 15:06 Ordered cefTRIAXone [Rocephin] 1 gm Med 05/19/21 15:11 Ordered Sodium Chloride 0.9% [Normal Saline] 50 ml IV ONETIME Medication Orders Ceftriaxone Sodium 1 gm/ (Sodium Chloride) 50 mls @ 100 mls/hr IV ONETIME ONE Stop: 05/19/21 15:40 Meds: Medications Generic Name Dose Route Start Last Admin Trade Name Freq PRN Reason Stop Dose Admin Ceftriaxone Sodium 1 gm/ 50 mls @ 100 mls/hr 05/19/21 15:11 Sodium Chloride IV 05/19/21 15:40 ONETIME ONE Departure - Departure Time of Disposition: 16:17 Disposition: Admitted As Inpatient 64 Condition: Fair Clinical Impression: Hypokalemia, UTI (urinary tract infection), Cellulitis of right lower leg, CHF (congestive heart failure) - Discharge Information *PRESCRIPTION DRUG MONITORING PROGRAM REVIEWED*: Not Applicable *COPY OF PRESCRIPTION DRUG MONITORING REPORT IN PATIENT TIKA: Not Applicable Referrals: PCP,None [Primary Care Provider] - Sepsis Event Note (ED) - Evaluation Sepsis Screening Result: No Definite Risk - Focused Exam Vital Signs: Vital Signs Temp Pulse Resp BP Pulse Ox 05/19/21 14:42 97.6 F 101 H 20 121/61 96 05/19/21 14:38 97.2 F 83 18 121/64 95 - Problem List & Annotations (1) Cellulitis of right lower leg SNOMED Code(s): 822291462 Code(s): L03.115 - CELLULITIS OF RIGHT LOWER LIMB Status: Acute Current Visit: Yes (2) Hypokalemia SNOMED Code(s): 85189120 Code(s): E87.6 - HYPOKALEMIA Status: Acute Current Visit: Yes (3) UTI (urinary tract infection) SNOMED Code(s): 41516219 Code(s): N39.0 - URINARY TRACT INFECTION, SITE NOT SPECIFIED Status: Acute Current Visit: Yes Qualifiers: Urinary tract infection type: acute cystitis Hematuria presence: with hematuria Qualified Code(s): N30.01 - Acute cystitis with hematuria (4) CHF (congestive heart failure) SNOMED Code(s): 84509673 Code(s): I50.9 - HEART FAILURE, UNSPECIFIED Status: Acute Current Visit: Yes Qualifiers: Heart failure type: systolic Heart failure chronicity: acute on chronic Qualified Code(s): I50.23 - Acute on chronic systolic (congestive) heart failure - Problem List Review Problem List Initiated/Reviewed/Updated: Yes - My Orders Last 24 Hours: My Active Orders 05/19/21 15:06 CBC WITH AUTO DIFF [HEME] Stat COMPREHENSIVE METABOLIC PN,CMP [CHEM] Stat UA RFX ESMER AND CULT IF INDIC [URIN] Stat 05/19/21 15:07 CULTURE BLOOD [BC] Stat LACTATE SEPSIS W/ REFLEX [CHEM] Stat MAGNESIUM [CHEM] Stat 05/19/21 15:10 CULTURE BLOOD [BC] Stat 05/19/21 15:11 cefTRIAXone [Rocephin] 1 gm Sodium Chloride 0.9% [Normal Saline] 50 ml IV ONETIME - Assessment/Plan Last 24 Hours: My Active Orders 05/19/21 15:06 CBC WITH AUTO DIFF [HEME] Stat COMPREHENSIVE METABOLIC PN,CMP [CHEM] Stat UA RFX ESMER AND CULT IF INDIC [URIN] Stat 05/19/21 15:07 CULTURE BLOOD [BC] Stat LACTATE SEPSIS W/ REFLEX [CHEM] Stat MAGNESIUM [CHEM] Stat 05/19/21 15:10 CULTURE BLOOD [BC] Stat 05/19/21 15:11 cefTRIAXone [Rocephin] 1 gm Sodium Chloride 0.9% [Normal Saline] 50 ml IV ONETIME Assessment:: assessment: cellulitis, UTI, CHF, hypokalemia plan: IV abx, IV diuresis, IV electrolyte replacement, admission to inpatient, accepting eHospitalist Dr. White
[2021-05-19] MEDS ORDERED: Potassium Chloride 40 MEQ/20 ML SDV IV STA (16:22)
[2021-05-19] MEDS ORDERED: Furosemide 40 MG/4 ML VIAL IVPUSH ONE (16:26)
[2021-05-19] MEDS ORDERED: Furosemide 40 MG/4 ML VIAL ONE (16:42)
[2021-05-19] MEDS ORDERED: Potassium Chloride Riders 50 ML ONE ×2 (16:48→17:46)
[2021-05-19] MEDS ORDERED: Potassium Chloride Riders 10 MEQ in Premix Bag 1 BAG IV SCH (17:00)
[2021-05-19] MEDS ORDERED: Potassium Chloride Riders 50 ML IV ONE (18:00)
[2021-05-19] MEDS ORDERED: Naproxen 250 MG Tab PO ONE (18:25)
[2021-05-19] MEDS: Lidocaine 5% 700 MG Patch TRDERM SCH (18:48)
[2021-05-19] MEDS ORDERED: Sodium Chloride 0.9% 10 ML Syringe FLUSH PRN (22:39)
[2021-05-20] MEDS ORDERED: Sodium Chloride 0.9% 1,000 ML IV SCH (00:15)
[2021-05-20] MEDS ORDERED: Potassium Chloride Riders 50 ML ONE ×2 (03:26)
[2021-05-20] MEDS ORDERED: cefTRIAXone 1 GM in Sodium Chloride 0.9% 50 ML IV SCH (08:00)
--- NOTE | 2021-05-20 11:12 | PCM.PN ---
- General Info Date of Service: 05/20/21 Admission Dx/Problem (Free Text): cellulitis of right lower leg UTI CHF acute on chronic hypokalemia Subjective Update: pt has improved edema to bilat lower legs, erythema also improved. increased confusion during the night. 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 Functional Status: Reports: Pain Controlled, Other (reduced appetite, assist of x1 for ADLs) - Review of Systems General: Reports: Weakness, Malaise HEENT: Reports: Sore Throat Pulmonary: Reports: No Symptoms Cardiovascular: Reports: No Symptoms Gastrointestinal: Reports: No Symptoms Genitourinary: Reports: Retention Skin: Reports: Other (erythema of RLE with coinciding calor) Neurological: Reports: Confusion - Patient Data Vitals - Most Recent: Last Vital Signs Temp 98.2 F 05/20/21 08:07 Pulse 101 H 05/20/21 08:07 Resp 18 05/20/21 08:07 BP 123/63 05/20/21 08:07 Pulse Ox 99 05/20/21 08:07 Weight - Most Recent: 164 lb 9.6 oz I&O - Last 24 Hours: Intake & Output 05/19/21 05/20/21 05/20/21 22:59 06:59 14:59 Intake Total 1849 Balance 1849 Lab Results Last 24 Hours: Laboratory Results - last 24 hr 05/19/21 05/19/21 05/19/21 Range/Units 15:23 15:32 15:32 WBC 17.3 H D (4.0-11.0) K/uL RBC 3.53 L (3.80-5.80) M/uL Hgb 10.4 L (11.5-16.5) g/dL Hct 30.5 L (37.0-47.0) % MCV 86 (76-96) fL MCH 29.5 (27.0-32.0) pg MCHC 34.1 (31.0-35.0) g/dL RDW 15.7 (11.0-16.0) % Plt Count 226 (150-500) K/uL MPV 8.4 (6.0-10.0) fL Neut % (Auto) 88.5 H (45.0-70.0) % Lymph % (Auto) 8.7 L (20.0-40.0) % [place] % (Auto) 2.0 L (3.0-10.0) % Eos % (Auto) 0.5 L (1.0-5.0) % Baso % (Auto) 0.3 (0.0-0.5) % Neut # (Auto) 15.36 H (2.00-7.50) K/uL Lymph # (Auto) 1.50 (1.50-4.00) K/uL [place] # (Auto) 0.34 (0.20-0.80) K/uL Eos # (Auto) 0.08 (0.04-0.40) K/uL Baso # (Auto) 0.06 (0.02-0.10) K/uL Sodium 136 (136-145) mmol/L Potassium 2.4 L* D (3.5-5.1) mmol/L Chloride 94 L (98-107) mmol/L Carbon Dioxide 35.0 H (21.0-32.0) mmol/L Anion Gap 9.4 (5.0-15.0) mmol/L BUN 14 D (8-26) mg/dL Creatinine 0.83 (0.55-1.02) mg/dL Est Cr Clr Drug Dosing 43.23 mL/min Estimated GFR (MDRD) > 60 (>60) MLS/MIN BUN/Creatinine Ratio 16.9 (6-25) Glucose 295 H (74-100) mg/dL Lactic Acid (0.4-2.0) mmol/L Calcium 9.3 (8.5-10.1) mg/dL Magnesium (1.8-2.4) mg/dL Total Bilirubin 1.4 H D (0.0-1.0) mg/dL AST 17 (15-37) U/L ALT 33 (12-78) U/L Alkaline Phosphatase 119 H (46-116) U/L B-Natriuretic Peptide (0-450) pg/mL Total Protein 6.0 L (6.4-8.2) g/dL Albumin 2.7 L (3.4-5.0) g/dL Globulin 3.3 (2.2-4.2) g/dL Albumin/Globulin Ratio 0.8 (0.8-2.0) Urine Color Yellow Urine Appearance Clear (CLEAR) Urine pH 5.0 (5.0-8.0) Ur Specific [place] 1.020 (1.003-1.030) Urine Protein 30 H (NEGATIVE) mg/dL Urine Glucose (UA) 500 H (NEGATIVE) mg/dL Urine Ketones Trace H (NEGATIVE) mg/dL Urine Occult Blood Trace-lysed H (NEGATIVE) Urine Nitrite Positive H (NEGATIVE) Urine Bilirubin Negative (NEGATIVE) Urine Urobilinogen 1.0 (0.2-1.0) E.U./dL Ur Leukocyte Esterase Negative (NEGATIVE) Urine RBC 5-10 H /HPF Urine WBC 20-30 H /HPF Urine WBC Clumps Rare /HPF Ur Epithelial Cells Few /HPF Urine Bacteria Many H /HPF SARS-CoV-2 RNA (SHORTY) (NEGATIVE) 05/19/21 05/19/21 05/19/21 Range/Units 15:32 15:37 15:45 WBC (4.0-11.0) K/uL RBC (3.80-5.80) M/uL Hgb (11.5-16.5) g/dL Hct (37.0-47.0) % MCV (76-96) fL MCH (27.0-32.0) pg MCHC (31.0-35.0) g/dL RDW (11.0-16.0) % Plt Count (150-500) K/uL MPV (6.0-10.0) fL Neut % (Auto) (45.0-70.0) % Lymph % (Auto) (20.0-40.0) % [place] % (Auto) (3.0-10.0) % Eos % (Auto) (1.0-5.0) % Baso % (Auto) (0.0-0.5) % Neut # (Auto) (2.00-7.50) K/uL Lymph # (Auto) (1.50-4.00) K/uL [place] # (Auto) (0.20-0.80) K/uL Eos # (Auto) (0.04-0.40) K/uL Baso # (Auto) (0.02-0.10) K/uL Sodium (136-145) mmol/L Potassium (3.5-5.1) mmol/L Chloride (98-107) mmol/L Carbon Dioxide (21.0-32.0) mmol/L Anion Gap (5.0-15.0) mmol/L BUN (8-26) mg/dL Creatinine (0.55-1.02) mg/dL Est Cr Clr Drug Dosing mL/min Estimated GFR (MDRD) (>60) MLS/MIN BUN/Creatinine Ratio (6-25) Glucose (74-100) mg/dL Lactic Acid 2.0 (0.4-2.0) mmol/L Calcium (8.5-10.1) mg/dL Magnesium 1.5 L D (1.8-2.4) mg/dL Total Bilirubin (0.0-1.0) mg/dL AST (15-37) U/L ALT (12-78) U/L Alkaline Phosphatase (46-116) U/L B-Natriuretic Peptide 1132 H D (0-450) pg/mL Total Protein (6.4-8.2) g/dL Albumin (3.4-5.0) g/dL Globulin (2.2-4.2) g/dL Albumin/Globulin Ratio (0.8-2.0) Urine Color Urine Appearance (CLEAR) Urine pH (5.0-8.0) Ur Specific [place] (1.003-1.030) Urine Protein (NEGATIVE) mg/dL Urine Glucose (UA) (NEGATIVE) mg/dL Urine Ketones (NEGATIVE) mg/dL Urine Occult Blood (NEGATIVE) Urine Nitrite (NEGATIVE) Urine Bilirubin (NEGATIVE) Urine Urobilinogen (0.2-1.0) E.U./dL Ur Leukocyte Esterase (NEGATIVE) Urine RBC /HPF Urine WBC /HPF Urine WBC Clumps /HPF Ur Epithelial Cells /HPF Urine Bacteria /HPF SARS-CoV-2 RNA (SHORTY) (NEGATIVE) 05/19/21 05/19/21 05/19/21 Range/Units 15:46 23:00 23:13 WBC (4.0-11.0) K/uL RBC (3.80-5.80) M/uL Hgb (11.5-16.5) g/dL Hct (37.0-47.0) % MCV (76-96) fL MCH (27.0-32.0) pg MCHC (31.0-35.0) g/dL RDW (11.0-16.0) % Plt Count (150-500) K/uL MPV (6.0-10.0) fL Neut % (Auto) (45.0-70.0) % Lymph % (Auto) (20.0-40.0) % [place] % (Auto) (3.0-10.0) % Eos % (Auto) (1.0-5.0) % Baso % (Auto) (0.0-0.5) % Neut # (Auto) (2.00-7.50) K/uL Lymph # (Auto) (1.50-4.00) K/uL [place] # (Auto) (0.20-0.80) K/uL Eos # (Auto) (0.04-0.40) K/uL Baso # (Auto) (0.02-0.10) K/uL Sodium 135 L (136-145) mmol/L Potassium 2.8 L* (3.5-5.1) mmol/L Chloride 95 L (98-107) mmol/L Carbon Dioxide 32.9 H (21.0-32.0) mmol/L Anion Gap 9.9 (5.0-15.0) mmol/L BUN 14 (8-26) mg/dL Creatinine 0.99 (0.55-1.02) mg/dL Est Cr Clr Drug Dosing 33.06 mL/min Estimated GFR (MDRD) 54 L (>60) MLS/MIN BUN/Creatinine Ratio 14.1 (6-25) Glucose 310 H (74-100) mg/dL Lactic Acid 3.7 H (0.4-2.0) mmol/L Calcium 8.6 (8.5-10.1) mg/dL Magnesium (1.8-2.4) mg/dL Total Bilirubin (0.0-1.0) mg/dL AST (15-37) U/L ALT (12-78) U/L Alkaline Phosphatase (46-116) U/L B-Natriuretic Peptide (0-450) pg/mL Total Protein (6.4-8.2) g/dL Albumin (3.4-5.0) g/dL Globulin (2.2-4.2) g/dL Albumin/Globulin Ratio (0.8-2.0) Urine Color Urine Appearance (CLEAR) Urine pH (5.0-8.0) Ur Specific [place] (1.003-1.030) Urine Protein (NEGATIVE) mg/dL Urine Glucose (UA) (NEGATIVE) mg/dL Urine Ketones (NEGATIVE) mg/dL Urine Occult Blood (NEGATIVE) Urine Nitrite (NEGATIVE) Urine Bilirubin (NEGATIVE) Urine Urobilinogen (0.2-1.0) E.U./dL Ur Leukocyte Esterase (NEGATIVE) Urine RBC /HPF Urine WBC /HPF Urine WBC Clumps /HPF Ur Epithelial Cells /HPF Urine Bacteria /HPF SARS-CoV-2 RNA (SHORTY) Negative (NEGATIVE) 05/20/21 05/20/21 Range/Units 07:45 08:00 WBC (4.0-11.0) K/uL RBC (3.80-5.80) M/uL Hgb (11.5-16.5) g/dL Hct (37.0-47.0) % MCV (76-96) fL MCH (27.0-32.0) pg MCHC (31.0-35.0) g/dL RDW (11.0-16.0) % Plt Count (150-500) K/uL MPV (6.0-10.0) fL Neut % (Auto) (45.0-70.0) % Lymph % (Auto) (20.0-40.0) % [place] % (Auto) (3.0-10.0) % Eos % (Auto) (1.0-5.0) % Baso % (Auto) (0.0-0.5) % Neut # (Auto) (2.00-7.50) K/uL Lymph # (Auto) (1.50-4.00) K/uL [place] # (Auto) (0.20-0.80) K/uL Eos # (Auto) (0.04-0.40) K/uL Baso # (Auto) (0.02-0.10) K/uL Sodium 136 (136-145) mmol/L Potassium 3.0 L (3.5-5.1) mmol/L Chloride 99 (98-107) mmol/L Carbon Dioxide 31.6 (21.0-32.0) mmol/L Anion Gap 8.4 (5.0-15.0) mmol/L BUN 15 (8-26) mg/dL Creatinine 0.69 D (0.55-1.02) mg/dL Est Cr Clr Drug Dosing 47.43 mL/min Estimated GFR (MDRD) > 60 (>60) MLS/MIN BUN/Creatinine Ratio 21.7 (6-25) Glucose 266 H (74-100) mg/dL Lactic Acid 1.5 (0.4-2.0) mmol/L Calcium 8.0 L (8.5-10.1) mg/dL Magnesium (1.8-2.4) mg/dL Total Bilirubin (0.0-1.0) mg/dL AST (15-37) U/L ALT (12-78) U/L Alkaline Phosphatase (46-116) U/L B-Natriuretic Peptide (0-450) pg/mL Total Protein (6.4-8.2) g/dL Albumin (3.4-5.0) g/dL Globulin (2.2-4.2) g/dL Albumin/Globulin Ratio (0.8-2.0) Urine Color Urine Appearance (CLEAR) Urine pH (5.0-8.0) Ur Specific [place] (1.003-1.030) Urine Protein (NEGATIVE) mg/dL Urine Glucose (UA) (NEGATIVE) mg/dL Urine Ketones (NEGATIVE) mg/dL Urine Occult Blood (NEGATIVE) Urine Nitrite (NEGATIVE) Urine Bilirubin (NEGATIVE) Urine Urobilinogen (0.2-1.0) E.U./dL Ur Leukocyte Esterase (NEGATIVE) Urine RBC /HPF Urine WBC /HPF Urine WBC Clumps /HPF Ur Epithelial Cells /HPF Urine Bacteria /HPF SARS-CoV-2 RNA (SHORTY) (NEGATIVE) Med Orders - Current: Current Medications Acetaminophen (Acetaminophen 325 Mg Tab) 650 mg PO Q6H PRN PRN Reason: Pain/Fever Docusate Sodium (Docusate Sodium 100 Mg Cap) 100 mg PO BID PRN PRN Reason: Constipation Enoxaparin Sodium (Enoxaparin 40 Mg/0.4 Ml Syringe) 40 mg SUBCUT DAILY [facility] Ceftriaxone Sodium 1 gm/ (Sodium Chloride) 50 mls @ 100 mls/hr IV DAILY [facility] Last Admin: 05/20/21 07:55 Dose: 100 mls/hr Documented by: Sodium Chloride (Normal Saline) 1,000 mls @ 100 mls/hr IV ASDIRECTED JASMINE Lidocaine (Lidocaine 5% 700 Mg Patch) 700 mg TRDERM Q24H [facility] Last Admin: 05/19/21 18:48 Dose: 700 mg Documented by: Sodium Chloride (Sodium Chloride 0.9% 10 Ml Syringe) 10 ml FLUSH ASDIRECTED PRN PRN Reason: Keep Vein Open Discontinued Medications Furosemide (Furosemide 40 Mg/4 Ml Vial) 40 mg IVPUSH NOW ONE Stop: 05/19/21 16:27 Last Admin: 05/19/21 16:34 Dose: 40 mg Documented by: Furosemide (Furosemide 40 Mg/4 Ml Vial) Confirm Administered Dose 40 mg .ROUTE .STK-MED ONE Stop: 05/19/21 16:43 Last Admin: 05/19/21 16:41 Dose: Not Given Documented by: Ceftriaxone Sodium 1 gm/ (Sodium Chloride) 50 mls @ 100 mls/hr IV ONETIME ONE Stop: 05/19/21 15:40 Last Admin: 05/19/21 15:54 Dose: 100 mls/hr Documented by: Potassium Chloride 10 meq/ (Premix) 50 mls @ 50 mls/hr IV Q1H JASMINE Stop: 05/19/21 18:59 Last Admin: 05/19/21 16:38 Dose: 50 mls/hr Documented by: Potassium Chloride (Kcl In Water 10 Meq/50 Ml) Confirm Administered Dose 50 mls @ as directed .ROUTE .STK-MED ONE Stop: 05/19/21 16:49 Last Admin: 05/19/21 17:32 Dose: Not Given Documented by: Potassium Chloride (Kcl In Water 10 Meq/50 Ml) Confirm Administered Dose 50 mls @ as directed .ROUTE .STK-MED ONE Stop: 05/19/21 17:47 Last Admin: 05/19/21 17:58 Dose: Not Given Documented by: Potassium Chloride (Kcl In Water 10 Meq/50 Ml) 50 mls @ 50 mls/hr IV ONETIME ONE Stop: 05/19/21 18:59 Last Admin: 05/19/21 18:02 Dose: 50 mls/hr Documented by: Ceftriaxone Sodium 1 gm/ (Sodium Chloride) 50 mls @ 200 mls/hr IV ONETIME ONE Stop: 05/19/21 18:32 Last Admin: 05/19/21 19:47 Dose: 200 mls/hr Documented by: Potassium Chloride (Kcl In Water 10 Meq/50 Ml) Confirm Administered Dose 50 mls @ as directed .ROUTE .STK-MED ONE Stop: 05/20/21 00:01 Last Admin: 05/20/21 00:30 Dose: 50 mls/hr Documented by: Sodium Chloride (Normal Saline) 1,000 mls @ 333 mls/hr IV BOLUS JASMINE Stop: 05/20/21 03:16 Last Admin: 05/20/21 00:31 Dose: 333 mls/hr Documented by: Potassium Chloride (Kcl In Water 10 Meq/50 Ml) Confirm Administered Dose 50 mls @ as directed .ROUTE .STK-MED ONE Stop: 05/20/21 03:27 Last Admin: 05/20/21 03:27 Dose: 50 mls/hr Documented by: Naproxen (Naproxen 250 Mg Tab) 250 mg PO Q12HR ONE Stop: 05/19/21 18:26 Last Admin: 05/19/21 19:49 Dose: 250 mg Documented by: Potassium Chloride (Potassium Chloride 40 Meq/20 Ml Sdv) 20 meq IV NOW STA Stop: 05/19/21 16:23 - Exam Quality Assessment: Urine Catheter Urinary Catheter Total Time: inserted at approx 3pm on May General: Alert, Cooperative, No Acute Distress HEENT: Pupils Equal, Pupils Reactive, EOMI, Mucous Membr. Moist/[place] Lungs: Clear to Auscultation Cardiovascular: Regular Rate, Regular Rhythm, No Murmurs GI/Abdominal Exam: Normal Bowel Sounds, Soft, Non-Tender Extremities: Pedal Edema, Leg Pain (right lower), Increased Warmth (right lower leg) Peripheral Pulses: 2+: Radial (L), Radial (R), Posterior Tibial (L), Posterior Tibial (R), Dorsalis Pedis (L), Dorsalis Pedis (R) Skin: Warm, Dry, Intact Wound/Incisions: Healing Well, No Drainage Psy/Mental Status: Alert - Patient Data Lab Results Last 24 hrs: Laboratory Results - last 24 hr 05/19/21 05/19/21 05/19/21 Range/Units 15:23 15:32 15:32 WBC 17.3 H D (4.0-11.0) K/uL RBC 3.53 L (3.80-5.80) M/uL Hgb 10.4 L (11.5-16.5) g/dL Hct 30.5 L (37.0-47.0) % MCV 86 (76-96) fL MCH 29.5 (27.0-32.0) pg MCHC 34.1 (31.0-35.0) g/dL RDW 15.7 (11.0-16.0) % Plt Count 226 (150-500) K/uL MPV 8.4 (6.0-10.0) fL Neut % (Auto) 88.5 H (45.0-70.0) % Lymph % (Auto) 8.7 L (20.0-40.0) % [place] % (Auto) 2.0 L (3.0-10.0) % Eos % (Auto) 0.5 L (1.0-5.0) % Baso % (Auto) 0.3 (0.0-0.5) % Neut # (Auto) 15.36 H (2.00-7.50) K/uL Lymph # (Auto) 1.50 (1.50-4.00) K/uL [place] # (Auto) 0.34 (0.20-0.80) K/uL Eos # (Auto) 0.08 (0.04-0.40) K/uL Baso # (Auto) 0.06 (0.02-0.10) K/uL Sodium 136 (136-145) mmol/L Potassium 2.4 L* D (3.5-5.1) mmol/L Chloride 94 L (98-107) mmol/L Carbon Dioxide 35.0 H (21.0-32.0) mmol/L Anion Gap 9.4 (5.0-15.0) mmol/L BUN 14 D (8-26) mg/dL Creatinine 0.83 (0.55-1.02) mg/dL Est Cr Clr Drug Dosing 43.23 mL/min Estimated GFR (MDRD) > 60 (>60) MLS/MIN BUN/Creatinine Ratio 16.9 (6-25) Glucose 295 H (74-100) mg/dL Lactic Acid (0.4-2.0) mmol/L Calcium 9.3 (8.5-10.1) mg/dL Magnesium (1.8-2.4) mg/dL Total Bilirubin 1.4 H D (0.0-1.0) mg/dL AST 17 (15-37) U/L ALT 33 (12-78) U/L Alkaline Phosphatase 119 H (46-116) U/L B-Natriuretic Peptide (0-450) pg/mL Total Protein 6.0 L (6.4-8.2) g/dL Albumin 2.7 L (3.4-5.0) g/dL Globulin 3.3 (2.2-4.2) g/dL Albumin/Globulin Ratio 0.8 (0.8-2.0) Urine Color Yellow Urine Appearance Clear (CLEAR) Urine pH 5.0 (5.0-8.0) Ur Specific [place] 1.020 (1.003-1.030) Urine Protein 30 H (NEGATIVE) mg/dL Urine Glucose (UA) 500 H (NEGATIVE) mg/dL Urine Ketones Trace H (NEGATIVE) mg/dL Urine Occult Blood Trace-lysed H (NEGATIVE) Urine Nitrite Positive H (NEGATIVE) Urine Bilirubin Negative (NEGATIVE) Urine Urobilinogen 1.0 (0.2-1.0) E.U./dL Ur Leukocyte Esterase Negative (NEGATIVE) Urine RBC 5-10 H /HPF Urine WBC 20-30 H /HPF Urine WBC Clumps Rare /HPF Ur Epithelial Cells Few /HPF Urine Bacteria Many H /HPF SARS-CoV-2 RNA (SHORTY) (NEGATIVE) 05/19/21 05/19/21 05/19/21 Range/Units 15:32 15:37 15:45 WBC (4.0-11.0) K/uL RBC (3.80-5.80) M/uL Hgb (11.5-16.5) g/dL Hct (37.0-47.0) % MCV (76-96) fL MCH (27.0-32.0) pg MCHC (31.0-35.0) g/dL RDW (11.0-16.0) % Plt Count (150-500) K/uL MPV (6.0-10.0) fL Neut % (Auto) (45.0-70.0) % Lymph % (Auto) (20.0-40.0) % [place] % (Auto) (3.0-10.0) % Eos % (Auto) (1.0-5.0) % Baso % (Auto) (0.0-0.5) % Neut # (Auto) (2.00-7.50) K/uL Lymph # (Auto) (1.50-4.00) K/uL [place] # (Auto) (0.20-0.80) K/uL Eos # (Auto) (0.04-0.40) K/uL Baso # (Auto) (0.02-0.10) K/uL Sodium (136-145) mmol/L Potassium (3.5-5.1) mmol/L Chloride (98-107) mmol/L Carbon Dioxide (21.0-32.0) mmol/L Anion Gap (5.0-15.0) mmol/L BUN (8-26) mg/dL Creatinine (0.55-1.02) mg/dL Est Cr Clr Drug Dosing mL/min Estimated GFR (MDRD) (>60) MLS/MIN BUN/Creatinine Ratio (6-25) Glucose (74-100) mg/dL Lactic Acid 2.0 (0.4-2.0) mmol/L Calcium (8.5-10.1) mg/dL Magnesium 1.5 L D (1.8-2.4) mg/dL Total Bilirubin (0.0-1.0) mg/dL AST (15-37) U/L ALT (12-78) U/L Alkaline Phosphatase (46-116) U/L B-Natriuretic Peptide 1132 H D (0-450) pg/mL Total Protein (6.4-8.2) g/dL Albumin (3.4-5.0) g/dL Globulin (2.2-4.2) g/dL Albumin/Globulin Ratio (0.8-2.0) Urine Color Urine Appearance (CLEAR) Urine pH (5.0-8.0) Ur Specific [place] (1.003-1.030) Urine Protein (NEGATIVE) mg/dL Urine Glucose (UA) (NEGATIVE) mg/dL Urine Ketones (NEGATIVE) mg/dL Urine Occult Blood (NEGATIVE) Urine Nitrite (NEGATIVE) Urine Bilirubin (NEGATIVE) Urine Urobilinogen (0.2-1.0) E.U./dL Ur Leukocyte Esterase (NEGATIVE) Urine RBC /HPF Urine WBC /HPF Urine WBC Clumps /HPF Ur Epithelial Cells /HPF Urine Bacteria /HPF SARS-CoV-2 RNA (SHORTY) (NEGATIVE) 05/19/21 05/19/21 05/19/21 Range/Units 15:46 23:00 23:13 WBC (4.0-11.0) K/uL RBC (3.80-5.80) M/uL Hgb (11.5-16.5) g/dL Hct (37.0-47.0) % MCV (76-96) fL MCH (27.0-32.0) pg MCHC (31.0-35.0) g/dL RDW (11.0-16.0) % Plt Count (150-500) K/uL MPV (6.0-10.0) fL Neut % (Auto) (45.0-70.0) % Lymph % (Auto) (20.0-40.0) % [place] % (Auto) (3.0-10.0) % Eos % (Auto) (1.0-5.0) % Baso % (Auto) (0.0-0.5) % Neut # (Auto) (2.00-7.50) K/uL Lymph # (Auto) (1.50-4.00) K/uL [place] # (Auto) (0.20-0.80) K/uL Eos # (Auto) (0.04-0.40) K/uL Baso # (Auto) (0.02-0.10) K/uL Sodium 135 L (136-145) mmol/L Potassium 2.8 L* (3.5-5.1) mmol/L Chloride 95 L (98-107) mmol/L Carbon Dioxide 32.9 H (21.0-32.0) mmol/L Anion Gap 9.9 (5.0-15.0) mmol/L BUN 14 (8-26) mg/dL Creatinine 0.99 (0.55-1.02) mg/dL Est Cr Clr Drug Dosing 33.06 mL/min Estimated GFR (MDRD) 54 L (>60) MLS/MIN BUN/Creatinine Ratio 14.1 (6-25) Glucose 310 H (74-100) mg/dL Lactic Acid 3.7 H (0.4-2.0) mmol/L Calcium 8.6 (8.5-10.1) mg/dL Magnesium (1.8-2.4) mg/dL Total Bilirubin (0.0-1.0) mg/dL AST (15-37) U/L ALT (12-78) U/L Alkaline Phosphatase (46-116) U/L B-Natriuretic Peptide (0-450) pg/mL Total Protein (6.4-8.2) g/dL Albumin (3.4-5.0) g/dL Globulin (2.2-4.2) g/dL Albumin/Globulin Ratio (0.8-2.0) Urine Color Urine Appearance (CLEAR) Urine pH (5.0-8.0) Ur Specific [place] (1.003-1.030) Urine Protein (NEGATIVE) mg/dL Urine Glucose (UA) (NEGATIVE) mg/dL Urine Ketones (NEGATIVE) mg/dL Urine Occult Blood (NEGATIVE) Urine Nitrite (NEGATIVE) Urine Bilirubin (NEGATIVE) Urine Urobilinogen (0.2-1.0) E.U./dL Ur Leukocyte Esterase (NEGATIVE) Urine RBC /HPF Urine WBC /HPF Urine WBC Clumps /HPF Ur Epithelial Cells /HPF Urine Bacteria /HPF SARS-CoV-2 RNA (SHORTY) Negative (NEGATIVE) 05/20/21 05/20/21 Range/Units 07:45 08:00 WBC (4.0-11.0) K/uL RBC (3.80-5.80) M/uL Hgb (11.5-16.5) g/dL Hct (37.0-47.0) % MCV (76-96) fL MCH (27.0-32.0) pg MCHC (31.0-35.0) g/dL RDW (11.0-16.0) % Plt Count (150-500) K/uL MPV (6.0-10.0) fL Neut % (Auto) (45.0-70.0) % Lymph % (Auto) (20.0-40.0) % [place] % (Auto) (3.0-10.0) % Eos % (Auto) (1.0-5.0) % Baso % (Auto) (0.0-0.5) % Neut # (Auto) (2.00-7.50) K/uL Lymph # (Auto) (1.50-4.00) K/uL Hudson # (Auto) (0.20-0.80) K/uL Eos # (Auto) (0.04-0.40) K/uL Baso # (Auto) (0.02-0.10) K/uL Sodium 136 (136-145) mmol/L Potassium 3.0 L (3.5-5.1) mmol/L Chloride 99 (98-107) mmol/L Carbon Dioxide 31.6 (21.0-32.0) mmol/L Anion Gap 8.4 (5.0-15.0) mmol/L BUN 15 (8-26) mg/dL Creatinine 0.69 D (0.55-1.02) mg/dL Est Cr Clr Drug Dosing 47.43 mL/min Estimated GFR (MDRD) > 60 (>60) MLS/MIN BUN/Creatinine Ratio 21.7 (6-25) Glucose 266 H (74-100) mg/dL Lactic Acid 1.5 (0.4-2.0) mmol/L Calcium 8.0 L (8.5-10.1) mg/dL Magnesium (1.8-2.4) mg/dL Total Bilirubin (0.0-1.0) mg/dL AST (15-37) U/L ALT (12-78) U/L Alkaline Phosphatase (46-116) U/L B-Natriuretic Peptide (0-450) pg/mL Total Protein (6.4-8.2) g/dL Albumin (3.4-5.0) g/dL Globulin (2.2-4.2) g/dL Albumin/Globulin Ratio (0.8-2.0) Urine Color Urine Appearance (CLEAR) Urine pH (5.0-8.0) Ur Specific [place] (1.003-1.030) Urine Protein (NEGATIVE) mg/dL Urine Glucose (UA) (NEGATIVE) mg/dL Urine Ketones (NEGATIVE) mg/dL Urine Occult Blood (NEGATIVE) Urine Nitrite (NEGATIVE) Urine Bilirubin (NEGATIVE) Urine Urobilinogen (0.2-1.0) E.U./dL Ur Leukocyte Esterase (NEGATIVE) Urine RBC /HPF Urine WBC /HPF Urine WBC Clumps /HPF Ur Epithelial Cells /HPF Urine Bacteria /HPF SARS-CoV-2 RNA (SHORTY) (NEGATIVE) Result Diagrams: 05/19/21 15:32 05/20/21 07:45 Sepsis Event Note - Evaluation Sepsis Screening Result: No Definite Risk - Focused Exam Vital Signs: Vital Signs Temp Pulse Resp BP Pulse Ox 05/20/21 08:07 98.2 F 101 H 18 123/63 99 05/20/21 06:00 97.9 F 98 18 129/63 100 05/20/21 02:49 98.5 F 115 H 18 124/74 92 L 05/20/21 00:24 98.8 F 113 H 18 128/69 100 - Problem List & Annotations (1) Cellulitis of right lower leg SNOMED Code(s): 589128502 Code(s): L03.115 - CELLULITIS OF RIGHT LOWER LIMB Status: Acute Current Visit: Yes Annotation/Comment:: rocephin 1g BID elevate legs (2) Hypokalemia SNOMED Code(s): 63927587 Code(s): E87.6 - HYPOKALEMIA Status: Acute Current Visit: Yes Annotation/Comment:: continue with IV K+ recheck levels in AM (3) UTI (urinary tract infection) SNOMED Code(s): 37499246 Code(s): N39.0 - URINARY TRACT INFECTION, SITE NOT SPECIFIED Status: Acute Current Visit: Yes Qualifiers: Urinary tract infection type: acute cystitis Hematuria presence: with hematuria Qualified Code(s): N30.01 - Acute cystitis with hematuria Annotation/Comment:: covered with rocephin 1g BID (4) CHF (congestive heart failure) SNOMED Code(s): 18043562 Code(s): I50.9 - HEART FAILURE, UNSPECIFIED Status: Acute Current Visit: Yes Qualifiers: Heart failure type: systolic Heart failure chronicity: acute on chronic Qualified Code(s): I50.23 - Acute on chronic systolic (congestive) heart failure Annotation/Comment:: lasix 40mg BID elevate legs BNP recheck in AM - Problem List Review Problem List Initiated/Reviewed/Updated: Yes - My Orders Last 24 Hours: My Active Orders 05/19/21 15:10 CULTURE BLOOD [BC] Stat 05/19/21 15:23 CULTURE BLOOD [BC] Stat CULTURE URINE [RM] Stat 05/19/21 16:33 Admission Diagnosis [ADT] Routine Transfer Patient (Change bed) [ADT] Routine 05/19/21 16:47 Patient Status [ADT] Routine 05/19/21 16:48 Cardiac Monitoring [RC] 08,14,20 05/19/21 18:14 Resuscitation Status Routine 05/19/21 18:19 CULTURE MRSA SURVEY [RM] Routine 05/19/21 18:30 Lidocaine 5% [Lidoderm 5%] 700 mg TRDERM Q24H 05/20/21 Breakfast Regular Diet [DIET] 05/20/21 08:38 PT Evaluation and Treatment [CONS] Routine 05/20/21 10:54 Bedrest Bathroom Privileges [RC] ASDIRECTED Up With Assistance [RC] ASDIRECTED Up to Chair [RC] ASDIRECTED Docusate Sodium [Colace] 100 mg PO BID PRN 05/20/21 10:55 Intake and Output [RC] QSHIFT Oxygen Therapy [RC] PRN VTE/DVT Education [RC] Per Unit Routine Vital Signs [RC] Q4H 05/20/21 11:00 Enoxaparin [Lovenox] 40 mg SUBCUT DAILY 05/21/21 05:11 BASIC METABOLIC PANEL,BMP [CHEM] AM MAGNESIUM [CHEM] AM - Plan Plan:: start PT/OT tomorrow. based on today's assessment and daughters input, I don't think pt will be a candidate to return home on disposition. care planning with PT, OT, social work tomorrow and tuesday.
[2021-05-20] MEDS: Sodium Chloride 0.9% 1,000 ML IV SCH ×2 (12:38→22:54)
[2021-05-20] MEDS: Enoxaparin 40 MG/0.4 ML Syringe SUBCUT SCH (12:49)
[2021-05-20] MEDS ORDERED: Potassium Chloride 40 MEQ/20 ML SDV IV STA (15:30)
[2021-05-20] MEDS: Furosemide 40 MG/4 ML VIAL IVPUSH SCH (15:56)
[2021-05-20] MEDS: Potassium Chloride Riders 50 ML IV SCH ×2 (16:05→17:29)
[2021-05-20] MEDS: Acetaminophen 325 MG Tab PO PRN (17:24)
[2021-05-20] MEDS: cefTRIAXone 1 GM in Sodium Chloride 0.9% 50 ML IV SCH (19:59)
[2021-05-20] MEDS: Lidocaine 5% 700 MG Patch TRDERM SCH (20:00)
[2021-05-20] MEDS: Naproxen 250 MG Tab PO SCH (20:10)
[2021-05-21] MEDS: Furosemide 40 MG/4 ML VIAL IVPUSH SCH (08:03)
[2021-05-21] MEDS: Enoxaparin 40 MG/0.4 ML Syringe SUBCUT SCH (08:03)
[2021-05-21] MEDS: cefTRIAXone 1 GM in Sodium Chloride 0.9% 50 ML IV SCH ×2 (08:04→19:22)
[2021-05-21] MEDS: Naproxen 250 MG Tab PO SCH ×2 (08:05→19:06)
[2021-05-21] MEDS: Lactobacillus Acidophilus/Lactobacillus Sporogenes (Probiotic) Tab PO SCH (08:05)
--- NOTE | 2021-05-21 11:39 | PCM.PN ---
- General Info Date of Service: 05/21/21 Admission Dx/Problem (Free Text): cellulitis of right lower leg UTI CHF acute on chronic hypokalemia Subjective Update: pt has marked improved edema to bilat lower legs, erythema also improved. PT wrapping legs bilaterally to assist with reducing edema decreased confusion during this AM. pt states she is feeling much better while sitting up in chair. she denies pain, states her dysphagia has resolved, denies fever, nausea. also states her weakness has improved. Functional Status: Reports: Pain Controlled, Tolerating Diet, Incentive Spirometry - Review of Systems General: Reports: Weakness HEENT: Reports: No Symptoms Pulmonary: Reports: No Symptoms Cardiovascular: Reports: No Symptoms Gastrointestinal: Reports: No Symptoms Genitourinary: Reports: Retention (perkins in place) Skin: Reports: Other (erythema to RLE) Neurological: Reports: Confusion - Patient Data Vitals - Most Recent: Last Vital Signs Temp 97.7 F 05/21/21 07:49 Pulse 86 05/21/21 07:49 Resp 14 05/21/21 07:49 BP 109/69 05/21/21 08:35 Pulse Ox 94 L 05/21/21 10:00 Weight - Most Recent: 166 lb 3.2 oz I&O - Last 24 Hours: Intake & Output 05/20/21 05/21/21 05/21/21 22:59 06:59 14:59 Intake Total 1350 1250 100 Output Total 600 375 Balance 750 875 100 Lab Results Last 24 Hours: Laboratory Results - last 24 hr 05/21/21 Range/Units 09:30 Sodium 138 (136-145) mmol/L Potassium 2.9 L* (3.5-5.1) mmol/L Chloride 102 (98-107) mmol/L Carbon Dioxide 31.9 (21.0-32.0) mmol/L Anion Gap 7.0 (5.0-15.0) mmol/L BUN 17 (8-26) mg/dL Creatinine 0.69 (0.55-1.02) mg/dL Est Cr Clr Drug Dosing 47.43 mL/min Estimated GFR (MDRD) > 60 (>60) MLS/MIN BUN/Creatinine Ratio 24.6 (6-25) Glucose 167 H D (74-100) mg/dL Calcium 7.7 L (8.5-10.1) mg/dL Magnesium 1.4 L (1.8-2.4) mg/dL B-Natriuretic Peptide 1348 H (0-450) pg/mL Myles Results Last 24 Hours: Microbiology 05/19/21 15:10 Aerobic Blood Culture - Preliminary Blood NO GROWTH AFTER 1 DAY Anaerobic Blood Culture - Preliminary NO GROWTH AFTER 1 DAY 05/19/21 15:23 Aerobic Blood Culture - Preliminary Blood NO GROWTH AFTER 1 DAY Anaerobic Blood Culture - Preliminary NO GROWTH AFTER 1 DAY 05/19/21 18:19 MRSA Surveillance Culture - Final Nares, Left NO MRSA ISOLATED Med Orders - Current: Current Medications Acetaminophen (Acetaminophen 325 Mg Tab) 650 mg PO Q6H PRN PRN Reason: Pain/Fever Last Admin: 05/20/21 17:24 Dose: 650 mg Documented by: Docusate Sodium (Docusate Sodium 100 Mg Cap) 100 mg PO BID PRN PRN Reason: Constipation Enoxaparin Sodium (Enoxaparin 40 Mg/0.4 Ml Syringe) 40 mg SUBCUT DAILY [facility] Last Admin: 05/21/21 08:03 Dose: 40 mg Documented by: Furosemide (Furosemide 40 Mg/4 Ml Vial) 40 mg IVPUSH DAILY [facility] Last Admin: 05/21/21 08:03 Dose: 40 mg Documented by: Ceftriaxone Sodium 1 gm/ (Sodium Chloride) 50 mls @ 100 mls/hr IV BID [facility] Last Admin: 05/21/21 08:04 Dose: 100 mls/hr Documented by: Lactobacillus Acidophilus (Lactobacillus Acidophilus/Lactobacillus Sporogenes (Probiotic) Tab) 1 tab PO DAILY [facility] Last Admin: 05/21/21 08:05 Dose: 1 tab Documented by: Lidocaine (Lidocaine 5% 700 Mg Patch) 700 mg TRDERM Q24H [facility] Magnesium Oxide (Magnesium Oxide 400 Mg Tab) 400 mg PO DAILY [facility] Miscellaneous Information (Remove Patch) 1 ea TRDERM Q24H [facility] Last Admin: 05/21/21 08:05 Dose: 1 ea Documented by: Naproxen (Naproxen 250 Mg Tab) 250 mg PO Q12HR [facility] Last Admin: 05/21/21 08:05 Dose: 250 mg Documented by: Potassium Chloride (Potassium Chloride 20 Meq Tab.Er) 40 meq PO BID [facility] Sodium Chloride (Sodium Chloride 0.9% 10 Ml Syringe) 10 ml FLUSH ASDIRECTED PRN PRN Reason: Keep Vein Open Discontinued Medications Furosemide (Furosemide 40 Mg/4 Ml Vial) 40 mg IVPUSH NOW ONE Stop: 05/19/21 16:27 Last Admin: 05/19/21 16:34 Dose: 40 mg Documented by: Furosemide (Furosemide 40 Mg/4 Ml Vial) Confirm Administered Dose 40 mg .ROUTE .STK-MED ONE Stop: 05/19/21 16:43 Last Admin: 05/19/21 16:41 Dose: Not Given Documented by: Ceftriaxone Sodium 1 gm/ (Sodium Chloride) 50 mls @ 100 mls/hr IV ONETIME ONE Stop: 05/19/21 15:40 Last Admin: 05/19/21 15:54 Dose: 100 mls/hr Documented by: Potassium Chloride 10 meq/ (Premix) 50 mls @ 50 mls/hr IV Q1H [facility] Stop: 05/19/21 18:59 Last Admin: 05/19/21 16:38 Dose: 50 mls/hr Documented by: Potassium Chloride (Kcl In Water 10 Meq/50 Ml) Confirm Administered Dose 50 mls @ as directed .ROUTE .STK-MED ONE Stop: 05/19/21 16:49 Last Admin: 05/19/21 17:32 Dose: Not Given Documented by: Potassium Chloride (Kcl In Water 10 Meq/50 Ml) Confirm Administered Dose 50 mls @ as directed .ROUTE .STK-MED ONE Stop: 05/19/21 17:47 Last Admin: 05/19/21 17:58 Dose: Not Given Documented by: Potassium Chloride (Kcl In Water 10 Meq/50 Ml) 50 mls @ 50 mls/hr IV ONETIME ONE Stop: 05/19/21 18:59 Last Admin: 05/19/21 18:02 Dose: 50 mls/hr Documented by: Ceftriaxone Sodium 1 gm/ (Sodium Chloride) 50 mls @ 200 mls/hr IV ONETIME ONE Stop: 05/19/21 18:32 Last Admin: 05/19/21 19:47 Dose: 200 mls/hr Documented by: Ceftriaxone Sodium 1 gm/ (Sodium Chloride) 50 mls @ 100 mls/hr IV DAILY [facility] Last Admin: 05/20/21 07:55 Dose: 100 mls/hr Documented by: Potassium Chloride (Kcl In Water 10 Meq/50 Ml) Confirm Administered Dose 50 mls @ as directed .ROUTE .STK-MED ONE Stop: 05/20/21 00:01 Last Admin: 05/20/21 00:30 Dose: 50 mls/hr Documented by: Sodium Chloride (Normal Saline) 1,000 mls @ 333 mls/hr IV BOLUS [facility] Stop: 05/20/21 03:16 Last Admin: 05/20/21 00:31 Dose: 333 mls/hr Documented by: Sodium Chloride (Normal Saline) 1,000 mls @ 100 mls/hr IV ASDIRECTED [facility] Last Admin: 05/20/21 22:54 Dose: 100 mls/hr Documented by: Potassium Chloride (Kcl In Water 10 Meq/50 Ml) Confirm Administered Dose 50 mls @ as directed .ROUTE .STK-MED ONE Stop: 05/20/21 03:27 Last Admin: 05/20/21 03:27 Dose: 50 mls/hr Documented by: Potassium Chloride (Kcl In Water 10 Meq/50 Ml) 50 mls @ 50 mls/hr IV Q1H [facility] Stop: 05/20/21 17:59 Last Admin: 05/20/21 17:29 Dose: 50 mls/hr Documented by: Lidocaine (Lidocaine 5% 700 Mg Patch) 700 mg TRDERM Q24H [facility] Last Admin: 05/20/21 20:00 Dose: 700 mg Documented by: Naproxen (Naproxen 250 Mg Tab) 250 mg PO Q12HR ONE Stop: 05/19/21 18:26 Last Admin: 05/19/21 19:49 Dose: 250 mg Documented by: Potassium Chloride (Potassium Chloride 40 Meq/20 Ml Sdv) 20 meq IV NOW STA Stop: 05/19/21 16:23 Potassium Chloride (Potassium Chloride 40 Meq/20 Ml Sdv) 20 meq IV NOW STA Stop: 05/20/21 15:31 - Exam Quality Assessment: Urine Catheter Urinary Catheter Total Time: 0Days 14Hours General: Alert, Oriented, Cooperative HEENT: Pupils Equal, Pupils Reactive, EOMI, Mucous Membr. Moist/[place] Neck: Supple, Trachea Midline Lungs: Crackles (mid and lower lobes bilat) Cardiovascular: Regular Rate, Regular Rhythm, Murmurs Extremities: Pedal Edema (+2), Other ( edema and tenderness and erythema remain although improved from yesterday, markedly. erythema reduced well within skin m arked parameters; +2 pitting edema bilateral) Peripheral Pulses: 2+: Radial (L), Radial (R) Skin: Warm, Dry, Intact Neurological: No New Focal Deficit Psy/Mental Status: Alert, Normal Affect, Normal Mood - Patient Data Lab Results Last 24 hrs: Laboratory Results - last 24 hr 05/21/21 Range/Units 09:30 Sodium 138 (136-145) mmol/L Potassium 2.9 L* (3.5-5.1) mmol/L Chloride 102 (98-107) mmol/L Carbon Dioxide 31.9 (21.0-32.0) mmol/L Anion Gap 7.0 (5.0-15.0) mmol/L BUN 17 (8-26) mg/dL Creatinine 0.69 (0.55-1.02) mg/dL Est Cr Clr Drug Dosing 47.43 mL/min Estimated GFR (MDRD) > 60 (>60) MLS/MIN BUN/Creatinine Ratio 24.6 (6-25) Glucose 167 H D (74-100) mg/dL Calcium 7.7 L (8.5-10.1) mg/dL Magnesium 1.4 L (1.8-2.4) mg/dL B-Natriuretic Peptide 1348 H (0-450) pg/mL Result Diagrams: 05/19/21 15:32 05/21/21 09:30 Myles Results Last 24 hrs: Microbiology 05/19/21 15:10 Aerobic Blood Culture - Preliminary Blood NO GROWTH AFTER 1 DAY Anaerobic Blood Culture - Preliminary NO GROWTH AFTER 1 DAY 05/19/21 15:23 Aerobic Blood Culture - Preliminary Blood NO GROWTH AFTER 1 DAY Anaerobic Blood Culture - Preliminary NO GROWTH AFTER 1 DAY 05/19/21 18:19 MRSA Surveillance Culture - Final Nares, Left NO MRSA ISOLATED Sepsis Event Note - Evaluation Sepsis Screening Result: Sepsis Risk - Focused Exam Vital Signs: Vital Signs Temp Pulse Resp BP BP Pulse Ox Pulse Ox 05/21/21 10:00 94 L 05/21/21 08:35 109/69 05/21/21 07:49 97.7 F 86 14 109/69 100 05/21/21 03:55 98.7 F 91 18 109/62 96 05/20/21 23:40 95 Heart Sounds: Murmur, Murmur, Diastolic Capillary Refill, Detail: Less than/Equal to (</=) 2 Seconds Pulse Description: 2+ Normal Peripheral Pulse Location: Radial Date Exam was Performed: 05/21/21 Time Exam was Performed: 11:30 - Problem List & Annotations (1) Cellulitis of right lower leg SNOMED Code(s): 606363008 Code(s): L03.115 - CELLULITIS OF RIGHT LOWER LIMB Status: Acute Current Visit: Yes Annotation/Comment:: rocephin 1g BID elevate legs leg wraps per PT (2) Hypokalemia SNOMED Code(s): 82816376 Code(s): E87.6 - HYPOKALEMIA Status: Acute Current Visit: Yes Annotation/Comment:: start PO K+ recheck levels in AM start PO Mag (3) UTI (urinary tract infection) SNOMED Code(s): 76909931 Code(s): N39.0 - URINARY TRACT INFECTION, SITE NOT SPECIFIED Status: Acute Current Visit: Yes Qualifiers: Urinary tract infection type: acute cystitis Hematuria presence: with hematuria Qualified Code(s): N30.01 - Acute cystitis with hematuria Annotation/Comment:: covered with rocephin 1g BID (4) CHF (congestive heart failure) SNOMED Code(s): 61499938 Code(s): I50.9 - HEART FAILURE, UNSPECIFIED Status: Acute Current Visit: Yes Qualifiers: Heart failure type: systolic Heart failure chronicity: acute on chronic Qualified Code(s): I50.23 - Acute on chronic systolic (congestive) heart failure Annotation/Comment:: lasix 40mg BID elevate legs leg wraps BNP recheck in AM - Problem List Review Problem List Initiated/Reviewed/Updated: Yes - My Orders Last 24 Hours: My Active Orders 05/20/21 10:54 Bedrest Bathroom Privileges [RC] ASDIRECTED Up With Assistance [RC] ASDIRECTED Up to Chair [RC] ASDIRECTED Docusate Sodium [Colace] 100 mg PO BID PRN 05/20/21 10:55 Intake and Output [RC] 06,18 Oxygen Therapy [RC] DAILY VTE/DVT Education [RC] Per Unit Routine Vital Signs [RC] 00,04,08,12,16,20 05/20/21 11:00 Enoxaparin [Lovenox] 40 mg SUBCUT DAILY 05/20/21 15:30 Insert Urinary Catheter [OM.PC] Q24H 05/20/21 15:31 Urinary Catheter Assessment [RC] 06,18 05/20/21 15:35 Consult to Occupational Therapy [OT Evaluation and Treatment] [CONS] Routine PT Evaluation and Treatment [CONS] Routine 05/20/21 15:45 Furosemide [Lasix] 40 mg IVPUSH DAILY 05/20/21 18:50 Perineal Care [OM.PC] Routine 05/20/21 20:00 Naproxen [Naprosyn] 250 mg PO Q12HR cefTRIAXone [Rocephin] 1 gm Sodium Chloride 0.9% [Normal Saline] 50 ml IV BID 05/21/21 08:00 Acidophilus/Lactobac Spor [Acidolphilus Extra Strength] 1 tab PO DAILY Remove Patch 1 ea TRDERM Q24H 05/21/21 11:30 Magnesium Oxide 400 mg PO DAILY Potassium Chloride [Klor-Con M20] 40 meq PO BID 05/21/21 20:00 Lidocaine 5% [Lidoderm 5%] 700 mg TRDERM Q24H 05/22/21 05:11 B-TYPE NATRIURETIC PEPTIDE,BNP [CHEM] AM 05/22/21 11:27 BASIC METABOLIC PANEL,BMP [CHEM] DAILY 05/23/21 05:00 MAGNESIUM [CHEM] Routine 05/23/21 05:11 B-TYPE NATRIURETIC PEPTIDE,BNP [CHEM] AM 05/23/21 11:27 BASIC METABOLIC PANEL,BMP [CHEM] DAILY 05/24/21 05:11 B-TYPE NATRIURETIC PEPTIDE,BNP [CHEM] AM 05/24/21 11:27 BASIC METABOLIC PANEL,BMP [CHEM] DAILY - Plan Plan:: start PT/OT today PO K+ and Mag and recheck tomorrow start incentive spirometry today stop IV fluids today and start PO start probiotic last night schedule naproxen care plan later today or tomorrow with [employer], PT, OT and nursing for disposition. if pt continues improvement at this rate, there is possibility of SNF admit early as tomorrow 6Aug21.
[2021-05-21] MEDS: Magnesium Oxide 400 MG Tab PO SCH (12:03)
[2021-05-21] MEDS: Potassium Chloride 20 MEQ Tab.ER PO SCH ×2 (12:03→19:08)
[2021-05-21] MEDS: Lidocaine 5% 700 MG Patch TRDERM SCH (19:07)
[2021-05-22] MEDS: Acetaminophen 325 MG Tab PO PRN ×3 (00:18→17:10)
[2021-05-22 07:53] LABS: HEMOGLOBIN A1C 10.1 % (< 5.7)
[2021-05-22] MEDS: Furosemide 40 MG/4 ML VIAL IVPUSH SCH ×4 (08:00→20:36)
[2021-05-22] MEDS: Potassium Chloride 20 MEQ Tab.ER PO SCH ×2 (08:39→19:45)
[2021-05-22] MEDS: Lactobacillus Acidophilus/Lactobacillus Sporogenes (Probiotic) Tab PO SCH (08:39)
[2021-05-22] MEDS: Naproxen 250 MG Tab PO SCH ×2 (08:40→20:37)
[2021-05-22] MEDS: Magnesium Oxide 400 MG Tab PO SCH (08:40)
[2021-05-22] MEDS: Enoxaparin 40 MG/0.4 ML Syringe SUBCUT SCH (08:43)
[2021-05-22] MEDS: cefTRIAXone 1 GM in Sodium Chloride 0.9% 50 ML IV SCH ×2 (09:01→20:38)
--- NOTE | 2021-05-22 12:35 | PCM.PN ---
- General Info Date of Service: 05/22/21 Admission Dx/Problem (Free Text): cellulitis of right lower leg UTI CHF acute on chronic hypokalemia Subjective Update: pt continues improvement edema to bilat lower legs with wraps, erythema also improved today. PT continues wrapping legs bilaterally to assist with reducing edema. PT does not think pt is appropriate to d/c today regarding strength. mentation remains stable, at baseline according to family and friends. she denies pain, fever, nausea. Functional Status: Reports: Pain Controlled, Tolerating Diet - Review of Systems General: Reports: No Symptoms HEENT: Reports: No Symptoms Pulmonary: Reports: No Symptoms Cardiovascular: Reports: No Symptoms Gastrointestinal: Reports: No Symptoms Genitourinary: Reports: No Symptoms Musculoskeletal: Reports: No Symptoms Skin: Reports: Other (lower leg pain and redness) Neurological: Reports: Confusion (recent memory impairment) - Patient Data Vitals - Most Recent: Last Vital Signs Temp 98.8 F 05/22/21 08:00 Pulse 89 05/22/21 08:00 Resp 20 05/22/21 08:00 BP 110/74 05/22/21 08:00 Pulse Ox 95 05/22/21 08:00 Weight - Most Recent: 155 lb 12.8 oz I&O - Last 24 Hours: Intake & Output 05/21/21 05/22/21 05/22/21 22:59 06:59 14:59 Intake Total 350 300 Output Total 100 475 Balance 250 -175 Lab Results Last 24 Hours: Laboratory Results - last 24 hr 05/22/21 05/22/21 05/22/21 Range/Units 07:30 07:30 09:30 Sodium 137 (136-145) mmol/L Potassium 3.5 D (3.5-5.1) mmol/L Chloride 103 (98-107) mmol/L Carbon Dioxide 31.4 (21.0-32.0) mmol/L Anion Gap 6.1 (5.0-15.0) mmol/L BUN 11 D (8-26) mg/dL Creatinine 0.68 (0.55-1.02) mg/dL Est Cr Clr Drug Dosing 48.13 mL/min Estimated GFR (MDRD) > 60 (>60) MLS/MIN BUN/Creatinine Ratio 16.2 (6-25) Glucose 196 H (74-100) mg/dL Hemoglobin A1c 10.1 H (< 5.7) % Calcium 7.6 L (8.5-10.1) mg/dL B-Natriuretic Peptide 2445 H D (0-450) pg/mL Myles Results Last 24 Hours: Microbiology 05/19/21 15:10 Aerobic Blood Culture - Preliminary Blood NO GROWTH AFTER 2 DAYS Anaerobic Blood Culture - Preliminary NO GROWTH AFTER 2 DAYS 05/19/21 15:23 Aerobic Blood Culture - Preliminary Blood NO GROWTH AFTER 2 DAYS Anaerobic Blood Culture - Preliminary NO GROWTH AFTER 2 DAYS 05/19/21 15:23 Urine Culture - Final Urine, Voided Klebsiella Pneumoniae Med Orders - Current: Current Medications Acetaminophen (Acetaminophen 325 Mg Tab) 650 mg PO Q6H PRN PRN Reason: Pain/Fever Last Admin: 05/22/21 09:23 Dose: 650 mg Documented by: Docusate Sodium (Docusate Sodium 100 Mg Cap) 100 mg PO BID PRN PRN Reason: Constipation Enoxaparin Sodium (Enoxaparin 40 Mg/0.4 Ml Syringe) 40 mg SUBCUT DAILY [facility] Last Admin: 05/22/21 08:43 Dose: 40 mg Documented by: Furosemide (Furosemide 40 Mg/4 Ml Vial) 40 mg IVPUSH DAILY [facility] Last Admin: 05/22/21 08:00 Dose: 40 mg Documented by: Ceftriaxone Sodium 1 gm/ (Sodium Chloride) 50 mls @ 100 mls/hr IV BID [facility] Last Admin: 05/22/21 09:01 Dose: 100 mls/hr Documented by: Lactobacillus Acidophilus (Lactobacillus Acidophilus/Lactobacillus Sporogenes (Probiotic) Tab) 1 tab PO DAILY [facility] Last Admin: 05/22/21 08:39 Dose: 1 tab Documented by: Lidocaine (Lidocaine 5% 700 Mg Patch) 700 mg TRDERM Q24H [facility] Last Admin: 05/21/21 19:07 Dose: 700 mg Documented by: Magnesium Oxide (Magnesium Oxide 400 Mg Tab) 400 mg PO DAILY [facility] Last Admin: 05/22/21 08:40 Dose: 400 mg Documented by: Miscellaneous Information (Remove Patch) 1 ea TRDERM Q24H [facility] Last Admin: 05/22/21 08:41 Dose: 1 ea Documented by: Naproxen (Naproxen 250 Mg Tab) 250 mg PO Q12HR [facility] Last Admin: 05/22/21 08:40 Dose: 250 mg Documented by: Potassium Chloride (Potassium Chloride 20 Meq Tab.Er) 40 meq PO BID [facility] Last Admin: 05/22/21 08:39 Dose: 40 meq Documented by: Sodium Chloride (Sodium Chloride 0.9% 10 Ml Syringe) 10 ml FLUSH ASDIRECTED PRN PRN Reason: Keep Vein Open Discontinued Medications Furosemide (Furosemide 40 Mg/4 Ml Vial) 40 mg IVPUSH NOW ONE Stop: 05/19/21 16:27 Last Admin: 05/19/21 16:34 Dose: 40 mg Documented by: Furosemide (Furosemide 40 Mg/4 Ml Vial) Confirm Administered Dose 40 mg .ROUTE .STK-MED ONE Stop: 05/19/21 16:43 Last Admin: 05/19/21 16:41 Dose: Not Given Documented by: Ceftriaxone Sodium 1 gm/ (Sodium Chloride) 50 mls @ 100 mls/hr IV ONETIME ONE Stop: 05/19/21 15:40 Last Admin: 05/19/21 15:54 Dose: 100 mls/hr Documented by: Potassium Chloride 10 meq/ (Premix) 50 mls @ 50 mls/hr IV Q1H [facility] Stop: 05/19/21 18:59 Last Admin: 05/19/21 16:38 Dose: 50 mls/hr Documented by: Potassium Chloride (Kcl In Water 10 Meq/50 Ml) Confirm Administered Dose 50 mls @ as directed .ROUTE .STK-MED ONE Stop: 05/19/21 16:49 Last Admin: 05/19/21 17:32 Dose: Not Given Documented by: Potassium Chloride (Kcl In Water 10 Meq/50 Ml) Confirm Administered Dose 50 mls @ as directed .ROUTE .STK-MED ONE Stop: 05/19/21 17:47 Last Admin: 05/19/21 17:58 Dose: Not Given Documented by: Potassium Chloride (Kcl In Water 10 Meq/50 Ml) 50 mls @ 50 mls/hr IV ONETIME ONE Stop: 05/19/21 18:59 Last Admin: 05/19/21 18:02 Dose: 50 mls/hr Documented by: Ceftriaxone Sodium 1 gm/ (Sodium Chloride) 50 mls @ 200 mls/hr IV ONETIME ONE Stop: 05/19/21 18:32 Last Admin: 05/19/21 19:47 Dose: 200 mls/hr Documented by: Ceftriaxone Sodium 1 gm/ (Sodium Chloride) 50 mls @ 100 mls/hr IV DAILY [facility] Last Admin: 05/20/21 07:55 Dose: 100 mls/hr Documented by: Potassium Chloride (Kcl In Water 10 Meq/50 Ml) Confirm Administered Dose 50 mls @ as directed .ROUTE .STK-MED ONE Stop: 05/20/21 00:01 Last Admin: 05/20/21 00:30 Dose: 50 mls/hr Documented by: Sodium Chloride (Normal Saline) 1,000 mls @ 333 mls/hr IV BOLUS [facility] Stop: 05/20/21 03:16 Last Admin: 05/20/21 00:31 Dose: 333 mls/hr Documented by: Sodium Chloride (Normal Saline) 1,000 mls @ 100 mls/hr IV ASDIRECTED [facility] Last Admin: 05/20/21 22:54 Dose: 100 mls/hr Documented by: Potassium Chloride (Kcl In Water 10 Meq/50 Ml) Confirm Administered Dose 50 mls @ as directed .ROUTE .STK-MED ONE Stop: 05/20/21 03:27 Last Admin: 05/20/21 03:27 Dose: 50 mls/hr Documented by: Potassium Chloride (Kcl In Water 10 Meq/50 Ml) 50 mls @ 50 mls/hr IV Q1H [facility] Stop: 05/20/21 17:59 Last Admin: 05/20/21 17:29 Dose: 50 mls/hr Documented by: Lidocaine (Lidocaine 5% 700 Mg Patch) 700 mg TRDERM Q24H [facility] Last Admin: 05/20/21 20:00 Dose: 700 mg Documented by: Naproxen (Naproxen 250 Mg Tab) 250 mg PO Q12HR ONE Stop: 05/19/21 18:26 Last Admin: 05/19/21 19:49 Dose: 250 mg Documented by: Potassium Chloride (Potassium Chloride 40 Meq/20 Ml Sdv) 20 meq IV NOW STA Stop: 05/19/21 16:23 Potassium Chloride (Potassium Chloride 40 Meq/20 Ml Sdv) 20 meq IV NOW STA Stop: 05/20/21 15:31 - Exam Quality Assessment: Supplemental Oxygen (at night), Urine Catheter, DVT Prophylaxis Urinary Catheter Total Time: 1Days 12Hours General: Alert, Oriented (person, place), Cooperative, No Acute Distress HEENT: Pupils Equal, Pupils Reactive, EOMI, Mucous Membr. Moist/[place] Lungs: Normal Respiratory Effort, Crackles (bases and mid lobes bilat) Cardiovascular: Regular Rate, Regular Rhythm GI/Abdominal Exam: Normal Bowel Sounds, Soft, Non-Tender Extremities: Non-Tender, Pedal Edema (+1-2), Redness (improved from yesterday) Skin: Warm, Intact Wound/Incisions: Healing Well Neurological: No New Focal Deficit Psy/Mental Status: Alert, Normal Affect - Patient Data Lab Results Last 24 hrs: Laboratory Results - last 24 hr 05/22/21 05/22/21 05/22/21 Range/Units 07:30 07:30 09:30 Sodium 137 (136-145) mmol/L Potassium 3.5 D (3.5-5.1) mmol/L Chloride 103 (98-107) mmol/L Carbon Dioxide 31.4 (21.0-32.0) mmol/L Anion Gap 6.1 (5.0-15.0) mmol/L BUN 11 D (8-26) mg/dL Creatinine 0.68 (0.55-1.02) mg/dL Est Cr Clr Drug Dosing 48.13 mL/min Estimated GFR (MDRD) > 60 (>60) MLS/MIN BUN/Creatinine Ratio 16.2 (6-25) Glucose 196 H (74-100) mg/dL Hemoglobin A1c 10.1 H (< 5.7) % Calcium 7.6 L (8.5-10.1) mg/dL B-Natriuretic Peptide 2445 H D (0-450) pg/mL Result Diagrams: 05/19/21 15:32 05/22/21 07:30 Myles Results Last 24 hrs: Microbiology 05/19/21 15:10 Aerobic Blood Culture - Preliminary Blood NO GROWTH AFTER 2 DAYS Anaerobic Blood Culture - Preliminary NO GROWTH AFTER 2 DAYS 05/19/21 15:23 Aerobic Blood Culture - Preliminary Blood NO GROWTH AFTER 2 DAYS Anaerobic Blood Culture - Preliminary NO GROWTH AFTER 2 DAYS 05/19/21 15:23 Urine Culture - Final Urine, Voided Klebsiella Pneumoniae Sepsis Event Note - Evaluation Sepsis Screening Result: No Definite Risk - Focused Exam Vital Signs: Vital Signs Temp Pulse Resp BP Pulse Ox 05/22/21 08:00 98.8 F 89 20 110/74 95 05/22/21 04:00 98.7 F 82 18 102/54 L 90 L 05/22/21 00:00 98.7 F 88 18 119/58 L 98 - Problem List & Annotations (1) Cellulitis of right lower leg SNOMED Code(s): 458085755 Code(s): L03.115 - CELLULITIS OF RIGHT LOWER LIMB Status: Acute Current Visit: Yes Annotation/Comment:: rocephin 1g BID elevate legs leg wraps per PT (2) Hypokalemia SNOMED Code(s): 89261792 Code(s): E87.6 - HYPOKALEMIA Status: Resolved Current Visit: Yes Onset Date: ~05/20/21 Annotation/Comment:: start PO K+ recheck levels in AM start PO Mag resolved May (3) UTI (urinary tract infection) SNOMED Code(s): 90146035 Code(s): N39.0 - URINARY TRACT INFECTION, SITE NOT SPECIFIED Status: Acute Current Visit: Yes Qualifiers: Urinary tract infection type: acute cystitis Hematuria presence: with hematuria Qualified Code(s): N30.01 - Acute cystitis with hematuria Annotation/Comment:: covered with rocephin 1g BID (4) CHF (congestive heart failure) SNOMED Code(s): 63693487 Code(s): I50.9 - HEART FAILURE, UNSPECIFIED Status: Acute Current Visit: Yes Qualifiers: Heart failure type: systolic Heart failure chronicity: acute on chronic Qualified Code(s): I50.23 - Acute on chronic systolic (congestive) heart failure Annotation/Comment:: lasix 40mg BID elevate legs leg wraps BNP recheck in AM - Problem List Review Problem List Initiated/Reviewed/Updated: Yes - My Orders Last 24 Hours: My Active Orders 05/21/21 11:30 Magnesium Oxide 400 mg PO DAILY Potassium Chloride [Klor-Con M20] 40 meq PO BID 05/21/21 11:39 Incentive Spirometry [RT Incentive Spirometry] [RC] Q1HWA 05/21/21 20:00 Lidocaine 5% [Lidoderm 5%] 700 mg TRDERM Q24H 05/22/21 06:08 Renew/Continue Urinary Catheter [OM.PC] Routine 05/23/21 05:00 MAGNESIUM [CHEM] Routine 05/23/21 05:11 B-TYPE NATRIURETIC PEPTIDE,BNP [CHEM] AM 05/23/21 11:27 BASIC METABOLIC PANEL,BMP [CHEM] DAILY 05/24/21 05:11 B-TYPE NATRIURETIC PEPTIDE,BNP [CHEM] AM 05/24/21 11:27 BASIC METABOLIC PANEL,BMP [CHEM] DAILY - Plan Plan:: PT/OT concerned for pt mental status and ADLs continue PO K+ and Mag and recheck tomorrow continue incentive spirometry continue IV abx and lasix restart prednisone from home meds with hx of autoimmune pancreatitis care plan with [employer], PT, OT suggest potential swing bed. pt physical improvement has continued, will continue acute care to monitor pt physical and mental status prior to disposition. potential that confusion is secondary to infection vs vascular dementia. concern for pt at home alone with current level of confusion occurring throughout shift.
[2021-05-22] MEDS: Docusate Sodium 100 MG Cap PO PRN (18:45)
[2021-05-22] MEDS: predniSONE 20 MG Tab PO SCH (18:45)
[2021-05-22] MEDS: metFORMIN 500 MG Tab.ER PO SCH (18:45)
[2021-05-22] MEDS: Lidocaine 5% 700 MG Patch TRDERM SCH (20:43)
[2021-05-23] MEDS ORDERED: metFORMIN 500 MG Tab.ER PO SCH (08:00)
[2021-05-23] MEDS: Naproxen 250 MG Tab PO SCH ×2 (08:14→19:56)
[2021-05-23] MEDS: Lactobacillus Acidophilus/Lactobacillus Sporogenes (Probiotic) Tab PO SCH (08:14)
[2021-05-23] MEDS: Potassium Chloride 20 MEQ Tab.ER PO SCH ×2 (08:14→19:57)
[2021-05-23] MEDS: predniSONE 20 MG Tab PO SCH (08:15)
[2021-05-23] MEDS: Enoxaparin 40 MG/0.4 ML Syringe SUBCUT SCH (08:15)
[2021-05-23] MEDS: Cholecalciferol (Vitamin D3) 2,000 Unit Cap PO SCH (08:15)
[2021-05-23] MEDS: Aspirin 81 MG Tab.Chew PO SCH (08:15)
[2021-05-23] MEDS: Magnesium Oxide 400 MG Tab PO SCH (08:15)
[2021-05-23] MEDS: cefTRIAXone 1 GM in Sodium Chloride 0.9% 50 ML IV SCH ×2 (08:55→20:00)
[2021-05-23] MEDS: Furosemide 40 MG/4 ML VIAL IVPUSH SCH ×2 (09:00→19:56)
--- NOTE | 2021-05-23 10:35 | PCM.PN ---
- General Info Date of Service: 05/23/21 Admission Dx/Problem (Free Text): cellulitis of right lower leg UTI CHF acute on chronic hypokalemia (resolved) Subjective Update: pt continues improvement edema to bilat lower legs with wraps, erythema also improved today. approx 6lb total weight loss since admit. pt impressed by size of her legs yesterday and today leg wraps bilat till tuesday. then rewrap. mentation remains stable, at baseline according to family and friends with intermittent increased confusion. she denies pain, fever, nausea. when asked how pt feels, she states "with my fingers" pt in good spirits. Functional Status: Reports: Pain Controlled, Tolerating Diet - Review of Systems General: Reports: No Symptoms Pulmonary: Reports: No Symptoms Cardiovascular: Reports: No Symptoms Gastrointestinal: Reports: No Symptoms Skin: Reports: No Symptoms Neurological: Reports: Confusion Psychiatric: Reports: Confusion - Patient Data Vitals - Most Recent: Last Vital Signs Temp 98.0 F 05/23/21 08:00 Pulse 81 05/23/21 08:00 Resp 20 05/23/21 08:00 BP 144/70 H 05/23/21 08:00 Pulse Ox 94 L 05/23/21 08:00 Weight - Most Recent: 149 lb 11.2 oz I&O - Last 24 Hours: Intake & Output 05/22/21 05/23/21 05/23/21 22:59 06:59 14:59 Intake Total 400 290 Output Total 200 2700 Balance 200 -2410 Lab Results Last 24 Hours: Laboratory Results - last 24 hr 05/22/21 05/23/21 05/23/21 Range/Units 17:20 05:00 05:11 Sodium 135 L (136-145) mmol/L Potassium 4.3 D (3.5-5.1) mmol/L Chloride 102 (98-107) mmol/L Carbon Dioxide 31.7 (21.0-32.0) mmol/L Anion Gap 5.6 (5.0-15.0) mmol/L BUN 11 (8-26) mg/dL Creatinine 0.87 D (0.55-1.02) mg/dL Est Cr Clr Drug Dosing 37.62 mL/min Estimated GFR (MDRD) > 60 (>60) MLS/MIN BUN/Creatinine Ratio 12.6 (6-25) Glucose 253 H (74-100) mg/dL POC Glucose 176 H (74-110) mg/dL Calcium 8.1 L (8.5-10.1) mg/dL Magnesium 1.6 L (1.8-2.4) mg/dL B-Natriuretic Peptide (0-450) pg/mL 05/23/21 Range/Units 05:11 Sodium (136-145) mmol/L Potassium (3.5-5.1) mmol/L Chloride (98-107) mmol/L Carbon Dioxide (21.0-32.0) mmol/L Anion Gap (5.0-15.0) mmol/L BUN (8-26) mg/dL Creatinine (0.55-1.02) mg/dL Est Cr Clr Drug Dosing mL/min Estimated GFR (MDRD) (>60) MLS/MIN BUN/Creatinine Ratio (6-25) Glucose (74-100) mg/dL POC Glucose (74-110) mg/dL Calcium (8.5-10.1) mg/dL Magnesium (1.8-2.4) mg/dL B-Natriuretic Peptide 4697 H D (0-450) pg/mL Myles Results Last 24 Hours: Microbiology 05/19/21 15:10 Aerobic Blood Culture - Preliminary Blood NO GROWTH AFTER 3 DAYS Anaerobic Blood Culture - Preliminary NO GROWTH AFTER 3 DAYS 05/19/21 15:23 Aerobic Blood Culture - Preliminary Blood NO GROWTH AFTER 3 DAYS Anaerobic Blood Culture - Preliminary NO GROWTH AFTER 3 DAYS Med Orders - Current: Current Medications Acetaminophen (Acetaminophen 325 Mg Tab) 650 mg PO Q6H PRN PRN Reason: Pain/Fever Last Admin: 05/22/21 17:10 Dose: 650 mg Documented by: Aspirin (Aspirin 81 Mg Tab.Chew) 81 mg PO DAILY [facility] Last Admin: 05/23/21 08:15 Dose: 81 mg Documented by: Cholecalciferol (Cholecalciferol (Vitamin D3) 2,000 Unit Cap) 2,000 unit PO DAILY [facility] Last Admin: 05/23/21 08:15 Dose: 2,000 unit Documented by: Docusate Sodium (Docusate Sodium 100 Mg Cap) 100 mg PO BID PRN PRN Reason: Constipation Last Admin: 05/22/21 18:45 Dose: 100 mg Documented by: Enoxaparin Sodium (Enoxaparin 40 Mg/0.4 Ml Syringe) 40 mg SUBCUT DAILY [facility] Last Admin: 05/23/21 08:15 Dose: 40 mg Documented by: Furosemide (Furosemide 40 Mg/4 Ml Vial) 40 mg IVPUSH BID [facility] Last Admin: 05/22/21 20:36 Dose: 40 mg Documented by: Ceftriaxone Sodium 1 gm/ (Sodium Chloride) 50 mls @ 100 mls/hr IV BID [facility] Last Admin: 05/23/21 08:55 Dose: 100 mls/hr Documented by: Lactobacillus Acidophilus (Lactobacillus Acidophilus/Lactobacillus Sporogenes (Probiotic) Tab) 1 tab PO DAILY [facility] Last Admin: 05/23/21 08:14 Dose: 1 tab Documented by: Lidocaine (Lidocaine 5% 700 Mg Patch) 700 mg TRDERM Q24H [facility] Last Admin: 05/22/21 20:43 Dose: 700 mg Documented by: Magnesium Oxide (Magnesium Oxide 400 Mg Tab) 400 mg PO DAILY [facility] Last Admin: 05/23/21 08:15 Dose: 400 mg Documented by: Metformin HCl (Metformin 500 Mg Tab.Er) 500 mg PO WITHDINNER [facility] Last Admin: 05/22/21 18:45 Dose: 500 mg Documented by: Miscellaneous Information (Remove Patch) 1 ea TRDERM Q24H [facility] Last Admin: 05/23/21 08:40 Dose: 1 ea Documented by: Naproxen (Naproxen 250 Mg Tab) 250 mg PO Q12HR [facility] Last Admin: 05/23/21 08:14 Dose: 250 mg Documented by: Potassium Chloride (Potassium Chloride 20 Meq Tab.Er) 20 meq PO BID [facility] Last Admin: 05/23/21 08:14 Dose: 20 meq Documented by: Prednisone (Prednisone 20 Mg Tab) 20 mg PO WITHBREAKFAST [facility] Last Admin: 05/23/21 08:15 Dose: 20 mg Documented by: Sodium Chloride (Sodium Chloride 0.9% 10 Ml Syringe) 10 ml FLUSH ASDIRECTED PRN PRN Reason: Keep Vein Open Last Admin: 05/23/21 08:15 Dose: 10 ml Documented by: Discontinued Medications Furosemide (Furosemide 40 Mg/4 Ml Vial) 40 mg IVPUSH NOW ONE Stop: 05/19/21 16:27 Last Admin: 05/19/21 16:34 Dose: 40 mg Documented by: Furosemide (Furosemide 40 Mg/4 Ml Vial) Confirm Administered Dose 40 mg .ROUTE .STK-MED ONE Stop: 05/19/21 16:43 Last Admin: 05/19/21 16:41 Dose: Not Given Documented by: Furosemide (Furosemide 40 Mg/4 Ml Vial) 40 mg IVPUSH DAILY [facility] Last Admin: 05/22/21 08:00 Dose: 40 mg Documented by: Ceftriaxone Sodium 1 gm/ (Sodium Chloride) 50 mls @ 100 mls/hr IV ONETIME ONE Stop: 05/19/21 15:40 Last Admin: 05/19/21 15:54 Dose: 100 mls/hr Documented by: Potassium Chloride 10 meq/ (Premix) 50 mls @ 50 mls/hr IV Q1H JASMINE Stop: 05/19/21 18:59 Last Admin: 05/19/21 16:38 Dose: 50 mls/hr Documented by: Potassium Chloride (Kcl In Water 10 Meq/50 Ml) Confirm Administered Dose 50 mls @ as directed .ROUTE .STK-MED ONE Stop: 05/19/21 16:49 Last Admin: 05/19/21 17:32 Dose: Not Given Documented by: Potassium Chloride (Kcl In Water 10 Meq/50 Ml) Confirm Administered Dose 50 mls @ as directed .ROUTE .STK-MED ONE Stop: 05/19/21 17:47 Last Admin: 05/19/21 17:58 Dose: Not Given Documented by: Potassium Chloride (Kcl In Water 10 Meq/50 Ml) 50 mls @ 50 mls/hr IV ONETIME ONE Stop: 05/19/21 18:59 Last Admin: 05/19/21 18:02 Dose: 50 mls/hr Documented by: Ceftriaxone Sodium 1 gm/ (Sodium Chloride) 50 mls @ 200 mls/hr IV ONETIME ONE Stop: 05/19/21 18:32 Last Admin: 05/19/21 19:47 Dose: 200 mls/hr Documented by: Ceftriaxone Sodium 1 gm/ (Sodium Chloride) 50 mls @ 100 mls/hr IV DAILY [facility] Last Admin: 05/20/21 07:55 Dose: 100 mls/hr Documented by: Potassium Chloride (Kcl In Water 10 Meq/50 Ml) Confirm Administered Dose 50 mls @ as directed .ROUTE .STK-MED ONE Stop: 05/20/21 00:01 Last Admin: 05/20/21 00:30 Dose: 50 mls/hr Documented by: Sodium Chloride (Normal Saline) 1,000 mls @ 333 mls/hr IV BOLUS [facility] Stop: 05/20/21 03:16 Last Admin: 05/20/21 00:31 Dose: 333 mls/hr Documented by: Sodium Chloride (Normal Saline) 1,000 mls @ 100 mls/hr IV ASDIRECTED [facility] Last Admin: 05/20/21 22:54 Dose: 100 mls/hr Documented by: Potassium Chloride (Kcl In Water 10 Meq/50 Ml) Confirm Administered Dose 50 mls @ as directed .ROUTE .STK-MED ONE Stop: 05/20/21 03:27 Last Admin: 05/20/21 03:27 Dose: 50 mls/hr Documented by: Potassium Chloride (Kcl In Water 10 Meq/50 Ml) 50 mls @ 50 mls/hr IV Q1H [facility] Stop: 05/20/21 17:59 Last Admin: 05/20/21 17:29 Dose: 50 mls/hr Documented by: Lidocaine (Lidocaine 5% 700 Mg Patch) 700 mg TRDERM Q24H [facility] Last Admin: 05/20/21 20:00 Dose: 700 mg Documented by: Metformin HCl (Metformin 500 Mg Tab.Er) 500 mg PO BIDMEALS [facility] Naproxen (Naproxen 250 Mg Tab) 250 mg PO Q12HR ONE Stop: 05/19/21 18:26 Last Admin: 05/19/21 19:49 Dose: 250 mg Documented by: Potassium Chloride (Potassium Chloride 40 Meq/20 Ml Sdv) 20 meq IV NOW STA Stop: 05/19/21 16:23 Potassium Chloride (Potassium Chloride 40 Meq/20 Ml Sdv) 20 meq IV NOW STA Stop: 05/20/21 15:31 Potassium Chloride (Potassium Chloride 20 Meq Tab.Er) 40 meq PO BID [facility] Last Admin: 05/22/21 08:39 Dose: 40 meq Documented by: - Exam Quality Assessment: Supplemental Oxygen (at HS PRN), Urine Catheter, DVT Prophy laxis Urinary Catheter Total Time: 2Days 12Hours General: Alert, Oriented (person, place, situation. disoriented to time. episodic confusion throughout the day and night.) HEENT: Pupils Equal, Pupils Reactive, EOMI, Mucous Membr. Moist/[place] Neck: Supple Lungs: Crackles (bilateral lower lobes) Cardiovascular: Regular Rate, Regular Rhythm, Murmurs GI/Abdominal Exam: Normal Bowel Sounds, Soft, Non-Tender Back Exam: Normal Inspection Extremities: Normal Inspection, Normal Range of Motion, Non-Tender, Pedal Edema (+1) Peripheral Pulses: 2+: Radial (L), Radial (R) Skin: Warm, Dry Neurological: No New Focal Deficit Psy/Mental Status: Alert, Normal Affect, Normal Mood - Patient Data Lab Results Last 24 hrs: Laboratory Results - last 24 hr 05/22/21 05/23/21 05/23/21 Range/Units 17:20 05:00 05:11 Sodium 135 L (136-145) mmol/L Potassium 4.3 D (3.5-5.1) mmol/L Chloride 102 (98-107) mmol/L Carbon Dioxide 31.7 (21.0-32.0) mmol/L Anion Gap 5.6 (5.0-15.0) mmol/L BUN 11 (8-26) mg/dL Creatinine 0.87 D (0.55-1.02) mg/dL Est Cr Clr Drug Dosing 37.62 mL/min Estimated GFR (MDRD) > 60 (>60) MLS/MIN BUN/Creatinine Ratio 12.6 (6-25) Glucose 253 H (74-100) mg/dL POC Glucose 176 H (74-110) mg/dL Calcium 8.1 L (8.5-10.1) mg/dL Magnesium 1.6 L (1.8-2.4) mg/dL B-Natriuretic Peptide (0-450) pg/mL 05/23/21 Range/Units 05:11 Sodium (136-145) mmol/L Potassium (3.5-5.1) mmol/L Chloride (98-107) mmol/L Carbon Dioxide (21.0-32.0) mmol/L Anion Gap (5.0-15.0) mmol/L BUN (8-26) mg/dL Creatinine (0.55-1.02) mg/dL Est Cr Clr Drug Dosing mL/min Estimated GFR (MDRD) (>60) MLS/MIN BUN/Creatinine Ratio (6-25) Glucose (74-100) mg/dL POC Glucose (74-110) mg/dL Calcium (8.5-10.1) mg/dL Magnesium (1.8-2.4) mg/dL B-Natriuretic Peptide 4697 H D (0-450) pg/mL Result Diagrams: 05/19/21 15:32 05/23/21 05:00 Myles Results Last 24 hrs: Microbiology 05/19/21 15:10 Aerobic Blood Culture - Preliminary Blood NO GROWTH AFTER 3 DAYS Anaerobic Blood Culture - Preliminary NO GROWTH AFTER 3 DAYS 05/19/21 15:23 Aerobic Blood Culture - Preliminary Blood NO GROWTH AFTER 3 DAYS Anaerobic Blood Culture - Preliminary NO GROWTH AFTER 3 DAYS Sepsis Event Note - Evaluation Sepsis Screening Result: No Definite Risk - Focused Exam Vital Signs: Vital Signs Temp Pulse Resp BP Pulse Ox 05/23/21 08:00 98.0 F 81 20 144/70 H 94 L 05/23/21 04:00 97.4 F 84 18 142/80 H 93 L 05/22/21 23:30 98 F 82 16 137/67 94 L - Problem List & Annotations (1) Cellulitis of right lower leg SNOMED Code(s): 193898126 Code(s): L03.115 - CELLULITIS OF RIGHT LOWER LIMB Status: Acute Current Visit: Yes Annotation/Comment:: rocephin 1g BID elevate legs leg wraps per PT (2) Hypokalemia SNOMED Code(s): 49975210 Code(s): E87.6 - HYPOKALEMIA Status: Resolved Current Visit: Yes Onset Date: ~05/20/21 Annotation/Comment:: start PO K+ recheck levels in AM start PO Mag resolved May (3) UTI (urinary tract infection) SNOMED Code(s): 67368892 Code(s): N39.0 - URINARY TRACT INFECTION, SITE NOT SPECIFIED Status: Acute Current Visit: Yes Qualifiers: Urinary tract infection type: acute cystitis Hematuria presence: with hematuria Qualified Code(s): N30.01 - Acute cystitis with hematuria Annotation/Comment:: covered with rocephin 1g BID (4) CHF (congestive heart failure) SNOMED Code(s): 23586810 Code(s): I50.9 - HEART FAILURE, UNSPECIFIED Status: Acute Current Visit: Yes Qualifiers: Heart failure type: systolic Heart failure chronicity: acute on chronic Qualified Code(s): I50.23 - Acute on chronic systolic (congestive) heart failure Annotation/Comment:: lasix 40mg BID elevate legs leg wraps BNP recheck in AM - Problem List Review Problem List Initiated/Reviewed/Updated: Yes - My Orders Last 24 Hours: My Active Orders 05/22/21 14:00 Furosemide [Lasix] 40 mg IVPUSH BID 05/22/21 17:07 CPAP Adult [RT BiPAP/CPAP] [] ASDIRECTED 05/22/21 17:15 POC Glucose [Blood Glucose Check, Bedside] [] ONETIME 05/22/21 18:00 metFORMIN [Glucophage XR] 500 mg PO WITHDINNER predniSONE 20 mg PO WITHBREAKFAST 05/22/21 20:00 Potassium Chloride [Klor-Con M20] 20 meq PO BID 05/23/21 08:00 Aspirin 81 mg PO DAILY Cholecalciferol (Vitamin D3) [Vitamin D3] 2,000 unit PO DAILY 05/24/21 05:11 B-TYPE NATRIURETIC PEPTIDE,BNP [CHEM] AM 05/24/21 11:27 BASIC METABOLIC PANEL,BMP [CHEM] DAILY - Plan Plan:: PT/OT concerned for pt mental status and ADLs continue PO K+ and Mag and recheck tomorrow continue incentive spirometry continue IV abx and lasix continue prednisone from home meds with hx of autoimmune pancreatitis BNP trending up since admit, likely a function of leg wraps, lung auscltation improved since yesterday. 6lb weight loss since admit. pt physical improvement has continued, will continue acute care for IV medication. also acute care to monitor physical and mental status with potential that confusion is secondary to infection vs vascular dementia. concern for pt at home alone with current level of confusion occurring throughout acute care stay.
[2021-05-23] MEDS: metFORMIN 500 MG Tab.ER PO SCH (17:10)
[2021-05-23] MEDS: Docusate Sodium 100 MG Cap PO PRN (17:11)
[2021-05-23] MEDS ORDERED: Melatonin 3 MG Tab ONE (19:53)
[2021-05-23] MEDS: Lidocaine 5% 700 MG Patch TRDERM SCH (19:57)
[2021-05-23] MEDS ORDERED: Melatonin 3 MG Tab PO PRN (20:08)
[2021-05-24] MEDS: cefTRIAXone 1 GM in Sodium Chloride 0.9% 50 ML IV SCH ×2 (07:50→20:21)
[2021-05-24] MEDS: Cholecalciferol (Vitamin D3) 2,000 Unit Cap PO SCH (07:54)
[2021-05-24] MEDS: Aspirin 81 MG Tab.Chew PO SCH (07:54)
[2021-05-24] MEDS: Magnesium Oxide 400 MG Tab PO SCH (07:54)
[2021-05-24] MEDS: Lactobacillus Acidophilus/Lactobacillus Sporogenes (Probiotic) Tab PO SCH (07:54)
[2021-05-24] MEDS: Naproxen 250 MG Tab PO SCH ×2 (07:55→20:22)
[2021-05-24] MEDS: Potassium Chloride 20 MEQ Tab.ER PO SCH ×2 (07:55→20:22)
[2021-05-24] MEDS: predniSONE 20 MG Tab PO SCH (07:55)
[2021-05-24] MEDS: Enoxaparin 40 MG/0.4 ML Syringe SUBCUT SCH (07:55)
[2021-05-24] MEDS: Furosemide 40 MG/4 ML VIAL IVPUSH SCH ×2 (07:56→14:00)
--- NOTE | 2021-05-24 10:09 | PCM.PN ---
- General Info Date of Service: 05/24/21 Admission Dx/Problem (Free Text): cellulitis of right lower leg UTI CHF acute on chronic hypokalemia (resolved) Subjective Update: pt continues improvement edema to bilat lower legs with wraps. approx 6lb total weight loss since admit as of yesterday. leg wraps bilat till tomorrow. mentation remains stable, at baseline according to family and friends, intermittent increased confusion continue. she denies pain, fever, nausea. pt in good spirits evidenced by sense of humor. Functional Status: Reports: Pain Controlled, Tolerating Diet, Incentive Spirometry - Review of Systems General: Reports: No Symptoms HEENT: Reports: No Symptoms Pulmonary: Reports: No Symptoms Cardiovascular: Reports: No Symptoms Gastrointestinal: Reports: No Symptoms Genitourinary: Reports: No Symptoms Skin: Reports: No Symptoms Neurological: Reports: Confusion Psychiatric: Reports: Confusion - Patient Data Vitals - Most Recent: Last Vital Signs Temp 98.3 F 05/24/21 08:00 Pulse 72 05/24/21 08:00 Resp 20 05/24/21 08:00 BP 127/77 05/24/21 08:00 Pulse Ox 98 05/24/21 08:00 Weight - Most Recent: 149 lb 11.2 oz I&O - Last 24 Hours: Intake & Output 05/23/21 05/24/21 05/24/21 22:59 06:59 14:59 Intake Total 600 400 Output Total 700 1450 Balance -100 -1050 Lab Results Last 24 Hours: Laboratory Results - last 24 hr 05/24/21 05/24/21 Range/Units 08:40 08:40 Sodium 135 L (136-145) mmol/L Potassium 4.2 (3.5-5.1) mmol/L Chloride 102 (98-107) mmol/L Carbon Dioxide 33.9 H (21.0-32.0) mmol/L Anion Gap 3.3 L (5.0-15.0) mmol/L BUN 11 (8-26) mg/dL Creatinine 0.91 (0.55-1.02) mg/dL Est Cr Clr Drug Dosing 41.16 mL/min Estimated GFR (MDRD) 59 L (>60) MLS/MIN BUN/Creatinine Ratio 12.1 (6-25) Glucose 179 H (74-100) mg/dL Calcium 8.3 L (8.5-10.1) mg/dL B-Natriuretic Peptide 3541 H (0-450) pg/mL Myles Results Last 24 Hours: Microbiology 05/19/21 15:10 Aerobic Blood Culture - Preliminary Blood NO GROWTH AFTER 4 DAYS Anaerobic Blood Culture - Preliminary NO GROWTH AFTER 4 DAYS 05/19/21 15:23 Aerobic Blood Culture - Preliminary Blood NO GROWTH AFTER 4 DAYS Anaerobic Blood Culture - Preliminary NO GROWTH AFTER 4 DAYS Med Orders - Current: Current Medications Acetaminophen (Acetaminophen 325 Mg Tab) 650 mg PO Q6H PRN PRN Reason: Pain/Fever Last Admin: 05/22/21 17:10 Dose: 650 mg Documented by: Aspirin (Aspirin 81 Mg Tab.Chew) 81 mg PO DAILY [facility] Last Admin: 05/24/21 07:54 Dose: 81 mg Documented by: Cholecalciferol (Cholecalciferol (Vitamin D3) 2,000 Unit Cap) 2,000 unit PO DAILY [facility] Last Admin: 05/24/21 07:54 Dose: 2,000 unit Documented by: Docusate Sodium (Docusate Sodium 100 Mg Cap) 100 mg PO BID PRN PRN Reason: Constipation Last Admin: 05/23/21 17:11 Dose: 100 mg Documented by: Enoxaparin Sodium (Enoxaparin 40 Mg/0.4 Ml Syringe) 40 mg SUBCUT DAILY [facility] Last Admin: 05/24/21 07:55 Dose: 40 mg Documented by: Furosemide (Furosemide 40 Mg/4 Ml Vial) 40 mg IVPUSH BID [facility] Last Admin: 05/24/21 07:56 Dose: 40 mg Documented by: Ceftriaxone Sodium 1 gm/ (Sodium Chloride) 50 mls @ 100 mls/hr IV BID [facility] Last Admin: 05/24/21 07:50 Dose: 100 mls/hr Documented by: Lactobacillus Acidophilus (Lactobacillus Acidophilus/Lactobacillus Sporogenes (Probiotic) Tab) 1 tab PO DAILY [facility] Last Admin: 05/24/21 07:54 Dose: 1 tab Documented by: Lidocaine (Lidocaine 5% 700 Mg Patch) 700 mg TRDERM Q24H [facility] Last Admin: 05/23/21 19:57 Dose: 700 mg Documented by: Magnesium Oxide (Magnesium Oxide 400 Mg Tab) 400 mg PO DAILY [facility] Last Admin: 05/24/21 07:54 Dose: 400 mg Documented by: Melatonin (Melatonin 3 Mg Tab) 6 mg PO BEDTIME PRN PRN Reason: Insomnia Last Admin: 05/23/21 20:00 Dose: 6 mg Documented by: Metformin HCl (Metformin 500 Mg Tab.Er) 500 mg PO WITHDINNER [facility] Last Admin: 05/23/21 17:10 Dose: 500 mg Documented by: Miscellaneous Information (Remove Patch) 1 ea TRDERM Q24H [facility] Last Admin: 05/24/21 09:21 Dose: 1 ea Documented by: Naproxen (Naproxen 250 Mg Tab) 250 mg PO Q12HR [facility] Last Admin: 05/24/21 07:55 Dose: 250 mg Documented by: Potassium Chloride (Potassium Chloride 20 Meq Tab.Er) 20 meq PO BID [facility] Last Admin: 05/24/21 07:55 Dose: 20 meq Documented by: Prednisone (Prednisone 20 Mg Tab) 20 mg PO WITHBREAKFAST [facility] Last Admin: 05/24/21 07:55 Dose: 20 mg Documented by: Sodium Chloride (Sodium Chloride 0.9% 10 Ml Syringe) 10 ml FLUSH ASDIRECTED PRN PRN Reason: Keep Vein Open Last Admin: 05/23/21 08:15 Dose: 10 ml Documented by: Discontinued Medications Furosemide (Furosemide 40 Mg/4 Ml Vial) 40 mg IVPUSH NOW ONE Stop: 05/19/21 16:27 Last Admin: 05/19/21 16:34 Dose: 40 mg Documented by: Furosemide (Furosemide 40 Mg/4 Ml Vial) Confirm Administered Dose 40 mg .ROUTE .STK-MED ONE Stop: 05/19/21 16:43 Last Admin: 05/19/21 16:41 Dose: Not Given Documented by: Furosemide (Furosemide 40 Mg/4 Ml Vial) 40 mg IVPUSH DAILY [facility] Last Admin: 05/22/21 08:00 Dose: 40 mg Documented by: Ceftriaxone Sodium 1 gm/ (Sodium Chloride) 50 mls @ 100 mls/hr IV ONETIME ONE Stop: 05/19/21 15:40 Last Admin: 05/19/21 15:54 Dose: 100 mls/hr Documented by: Potassium Chloride 10 meq/ (Premix) 50 mls @ 50 mls/hr IV Q1H [facility] Stop: 05/19/21 18:59 Last Admin: 05/19/21 16:38 Dose: 50 mls/hr Documented by: Potassium Chloride (Kcl In Water 10 Meq/50 Ml) Confirm Administered Dose 50 mls @ as directed .ROUTE .STK-MED ONE Stop: 05/19/21 16:49 Last Admin: 05/19/21 17:32 Dose: Not Given Documented by: Potassium Chloride (Kcl In Water 10 Meq/50 Ml) Confirm Administered Dose 50 mls @ as directed .ROUTE .STK-MED ONE Stop: 05/19/21 17:47 Last Admin: 05/19/21 17:58 Dose: Not Given Documented by: Potassium Chloride (Kcl In Water 10 Meq/50 Ml) 50 mls @ 50 mls/hr IV ONETIME ONE Stop: 05/19/21 18:59 Last Admin: 05/19/21 18:02 Dose: 50 mls/hr Documented by: Ceftriaxone Sodium 1 gm/ (Sodium Chloride) 50 mls @ 200 mls/hr IV ONETIME ONE Stop: 05/19/21 18:32 Last Admin: 05/19/21 19:47 Dose: 200 mls/hr Documented by: Ceftriaxone Sodium 1 gm/ (Sodium Chloride) 50 mls @ 100 mls/hr IV DAILY [facility] Last Admin: 05/20/21 07:55 Dose: 100 mls/hr Documented by: Potassium Chloride (Kcl In Water 10 Meq/50 Ml) Confirm Administered Dose 50 mls @ as directed .ROUTE .STK-MED ONE Stop: 05/20/21 00:01 Last Admin: 05/20/21 00:30 Dose: 50 mls/hr Documented by: Sodium Chloride (Normal Saline) 1,000 mls @ 333 mls/hr IV BOLUS [facility] Stop: 05/20/21 03:16 Last Admin: 05/20/21 00:31 Dose: 333 mls/hr Documented by: Sodium Chloride (Normal Saline) 1,000 mls @ 100 mls/hr IV ASDIRECTED [facility] Last Admin: 05/20/21 22:54 Dose: 100 mls/hr Documented by: Potassium Chloride (Kcl In Water 10 Meq/50 Ml) Confirm Administered Dose 50 mls @ as directed .ROUTE .STK-MED ONE Stop: 05/20/21 03:27 Last Admin: 05/20/21 03:27 Dose: 50 mls/hr Documented by: Potassium Chloride (Kcl In Water 10 Meq/50 Ml) 50 mls @ 50 mls/hr IV Q1H [facility] Stop: 05/20/21 17:59 Last Admin: 05/20/21 17:29 Dose: 50 mls/hr Documented by: Lidocaine (Lidocaine 5% 700 Mg Patch) 700 mg TRDERM Q24H [facility] Last Admin: 05/20/21 20:00 Dose: 700 mg Documented by: Melatonin (Melatonin 3 Mg Tab) Confirm Administered Dose 6 mg .ROUTE .STK-MED ONE Stop: 05/23/21 19:54 Last Admin: 05/24/21 00:04 Dose: Not Given Documented by: Metformin HCl (Metformin 500 Mg Tab.Er) 500 mg PO BIDMEALS [facility] Naproxen (Naproxen 250 Mg Tab) 250 mg PO Q12HR ONE Stop: 05/19/21 18:26 Last Admin: 05/19/21 19:49 Dose: 250 mg Documented by: Potassium Chloride (Potassium Chloride 40 Meq/20 Ml Sdv) 20 meq IV NOW STA Stop: 05/19/21 16:23 Potassium Chloride (Potassium Chloride 40 Meq/20 Ml Sdv) 20 meq IV NOW STA Stop: 05/20/21 15:31 Potassium Chloride (Potassium Chloride 20 Meq Tab.Er) 40 meq PO BID [facility] Last Admin: 05/22/21 08:39 Dose: 40 meq Documented by: - Exam Quality Assessment: Supplemental Oxygen (at hs. ), Urine Catheter, DVT Prophylaxis Urinary Catheter Total Time: 3Days 8Hours General: Alert, Oriented HEENT: Pupils Equal, Pupils Reactive, EOMI Lungs: Clear to Auscultation, Normal Respiratory Effort Cardiovascular: Regular Rate, Regular Rhythm, Murmurs Peripheral Pulses: 2+: Radial (L), Radial (R), Posterior Tibial (L), Posterior Tibial (R) Skin: Warm, Dry, Intact Wound/Incisions: Healing Well Neurological: No New Focal Deficit Psy/Mental Status: Alert, Normal Affect, Normal Mood - Patient Data Lab Results Last 24 hrs: Laboratory Results - last 24 hr 05/24/21 05/24/21 Range/Units 08:40 08:40 Sodium 135 L (136-145) mmol/L Potassium 4.2 (3.5-5.1) mmol/L Chloride 102 (98-107) mmol/L Carbon Dioxide 33.9 H (21.0-32.0) mmol/L Anion Gap 3.3 L (5.0-15.0) mmol/L BUN 11 (8-26) mg/dL Creatinine 0.91 (0.55-1.02) mg/dL Est Cr Clr Drug Dosing 41.16 mL/min Estimated GFR (MDRD) 59 L (>60) MLS/MIN BUN/Creatinine Ratio 12.1 (6-25) Glucose 179 H (74-100) mg/dL Calcium 8.3 L (8.5-10.1) mg/dL B-Natriuretic Peptide 3541 H (0-450) pg/mL Result Diagrams: 05/19/21 15:32 05/24/21 08:40 Myles Results Last 24 hrs: Microbiology 05/19/21 15:10 Aerobic Blood Culture - Preliminary Blood NO GROWTH AFTER 4 DAYS Anaerobic Blood Culture - Preliminary NO GROWTH AFTER 4 DAYS 05/19/21 15:23 Aerobic Blood Culture - Preliminary Blood NO GROWTH AFTER 4 DAYS Anaerobic Blood Culture - Preliminary NO GROWTH AFTER 4 DAYS Sepsis Event Note - Evaluation Sepsis Screening Result: No Definite Risk - Focused Exam Vital Signs: Vital Signs Temp Pulse Resp BP Pulse Ox 05/24/21 08:00 98.3 F 72 20 127/77 98 05/24/21 04:00 98 F 80 18 128/74 97 05/24/21 00:00 97.6 F 82 16 124/66 96 - Problem List & Annotations (1) Cellulitis of right lower leg SNOMED Code(s): 360163451 Code(s): L03.115 - CELLULITIS OF RIGHT LOWER LIMB Status: Acute Current Visit: Yes Annotation/Comment:: rocephin 1g BID elevate legs leg wraps per PT (2) Hypokalemia SNOMED Code(s): 14417902 Code(s): E87.6 - HYPOKALEMIA Status: Resolved Current Visit: Yes Onset Date: ~05/20/21 Annotation/Comment:: start PO K+ recheck levels in AM start PO Mag resolved May (3) UTI (urinary tract infection) SNOMED Code(s): 68752073 Code(s): N39.0 - URINARY TRACT INFECTION, SITE NOT SPECIFIED Status: Acute Current Visit: Yes Qualifiers: Urinary tract infection type: acute cystitis Hematuria presence: with hematuria Qualified Code(s): N30.01 - Acute cystitis with hematuria Annotation/Comment:: covered with rocephin 1g BID (4) CHF (congestive heart failure) SNOMED Code(s): 26407174 Code(s): I50.9 - HEART FAILURE, UNSPECIFIED Status: Acute Current Visit: Yes Qualifiers: Heart failure type: systolic Heart failure chronicity: acute on chronic Qualified Code(s): I50.23 - Acute on chronic systolic (congestive) heart failure Annotation/Comment:: lasix 40mg BID elevate legs leg wraps BNP recheck in AM - Problem List Review Problem List Initiated/Reviewed/Updated: Yes - My Orders Last 24 Hours: My Active Orders 05/23/21 20:08 Melatonin 6 mg PO BEDTIME PRN 05/24/21 01:48 Renew/Continue Urinary Catheter [OM.PC] Routine - Plan Plan:: PT/OT concerned for pt mental status and ADLs continue PO K+ and Mag and recheck tomorrow continue incentive spirometry start albuterol nebs PRN continue IV abx and lasix, reschedule lasix to 8a and 1300 remove perkins and trial voiding today. if no void in 8hr, bladder scan and attempt to void. BNP trending down, continue monitor I&O pt physical improvement has continued, will continue acute care for IV medication. also acute care to monitor physical and mental status with potential that confusion is secondary to infection vs vascular dementia. concern for pt at home alone with current level of confusion occurring throughout acute care stay. change to swing bed to continue PT and OT tomorrow AM
[2021-05-24] MEDS ORDERED: Albuterol 0.083% 2.5 MG/3 ML Neb Soln NEB PRN (10:12)
[2021-05-24] MEDS ORDERED: Furosemide 40 MG/4 ML VIAL ONE (14:18)
--- NOTE | 2021-05-24 15:59 | PCM.DCSUM1 ---
Discharge Summary - Hospital Course HPI Initial Comments: pt initially admitted to [facility] with cellulitis of RLE, hypo K, acute on chronic CHF, UTI. she received rocephin 1g BID IV and lasix IV since admit. for a period of time her BNP increased due to leg wraps in the setting of significant leg swelling. intention was to treat the cellulitis via reducing edema with leg wraps while risking worsening fluid overload. lasix was changed to BID and pt condition improved although it was guarded during the first night with increased agitation and lactate. pt continued to improve her activity tolerance, diet and mentation although concerns were brought up by PT and OT for mental status and ability to do ADLs. yesterday pt perkins was removed and pt was able to void on her own with assistance of 1. pt will be d/c today for readmit as swing bed for strengthening, conditioning, and reassessments for potential discharge home vs SNF. Handoff to Dr. Mcdowell who agrees with plan of care. pt and family also agreeable with plan of care. Diagnosis: Stroke: No - Discharge Data Discharge Date: 05/25/21 Discharge Disposition: DC/Tfer W/I Hosp To Swing 61 Condition: Good - Referral to Home Health Primary Care Physician: PCP None - Discharge Diagnosis/Problem(s) (1) Cellulitis of right lower leg SNOMED Code(s): 480620657 ICD Code: L03.115 - CELLULITIS OF RIGHT LOWER LIMB Status: Acute Current Visit: Yes Problem Details: rocephin 1g BID elevate legs leg wraps per PT (2) Hypokalemia SNOMED Code(s): 36112454 ICD Code: E87.6 - HYPOKALEMIA Status: Resolved Current Visit: Yes Onset Date: ~05/20/21 Problem Details: start PO K+ recheck levels in AM start PO Mag resolved May (3) UTI (urinary tract infection) SNOMED Code(s): 46077412 ICD Code: N39.0 - URINARY TRACT INFECTION, SITE NOT SPECIFIED Status: Acute Current Visit: Yes Problem Details: covered with rocephin 1g BID Qualifiers: Urinary tract infection type: acute cystitis Hematuria presence: with hematuria Qualified Code(s): N30.01 - Acute cystitis with hematuria (4) CHF (congestive heart failure) SNOMED Code(s): 47822026 ICD Code: I50.9 - HEART FAILURE, UNSPECIFIED Status: Acute Current Visit: Yes Problem Details: lasix 40mg BID elevate legs leg wraps Qualifiers: Heart failure type: systolic Heart failure chronicity: acute on chronic Qualified Code(s): I50.23 - Acute on chronic systolic (congestive) heart failure - Patient Summary/Data Consults: Consultations 05/20/21 08:38 PT Evaluation and Treatment [CONS] Routine Please Evaluate and Treat. PT Reason for Consult: Wound Care, edema This query below is only for informational purposes and is not editable. Admission Diagnosis/Problem: Cellulitis of right lower extremity 05/20/21 15:35 Consult to Occupational Therapy [OT Evaluation and Treatment] [CONS] Routine Please Evaluate and Treat. OT Reason for Consult: Discharge Planning Special Instructions: ADLs and candidacy for home alone vs transfer to LTC SNF This query below is only for informational purposes and is not editable. Admission Diagnosis/Problem: Cellulitis of right lower extremity PT Evaluation and Treatment [CONS] Routine Please Evaluate and Treat. PT Reason for Consult: Ambulation This query below is only for informational purposes and is not editable. Admission Diagnosis/Problem: Cellulitis of right lower extremity - Patient Instructions Diet: Diabetic Diet Fluid Restriction: 1500 mL Activity: As Tolerated, Cough & Deep Breathe, Elevate Extremity - Discharge Plan *PRESCRIPTION DRUG MONITORING PROGRAM REVIEWED*: Not Applicable *COPY OF PRESCRIPTION DRUG MONITORING REPORT IN PATIENT TIKA: Not Applicable Home Medications: Home Meds Aspirin 81 mg PO DAILY 12/08/17 [History] Calcium Carbonate/Vitamin D3 [Calcium 500-Vit D3 200 Caplet] 2 tab PO BIDMEALS 12/08/17 [History] polyethylene glycoL 3350 [Polyethylene Glycol 3350] 17 gm PO DAILY 12/08/17 [History] predniSONE [Prednisone] 20 mg PO DAILY 03/09/21 [History] Calcitonin (Quentin) [Miacalcin Nasal [place]] 1 spray NS DAILY 05/19/21 [History] Cetirizine HCl [Aller-Saman] 10 mg PO DAILY 05/19/21 [History] Cholecalciferol (Vitamin D3) [Vitamin D3] 2,000 unit PO DAILY 05/19/21 [History] Furosemide [Lasix] 40 mg PO DAILY 05/19/21 [History] Lidocaine 4% [Aspercreme 4%] 1 patch TRDERM DAILY PRN 05/19/21 [History] Naproxen Sodium [Aleve] 220 mg PO BID PRN 05/19/21 [History] Zinc 50 mg PO DAILY 05/19/21 [History] Oxygen Therapy Mode: Room Air Forms: ED Department Discharge Referrals: PCP,None [Primary Care Provider] - - Discharge Summary/Plan Comment DC Time >30 min.: Yes - General Info Date of Service: 05/25/21 Admission Dx/Problem (Free Text: cellulitis of right lower leg UTI CHF acute on chronic Subjective Update: pt continues improvement edema to bilat lower legs with wraps. approx 6lb total weight loss since admit as of yesterday. leg wraps bilat till tomorrow. mentation remains stable, at baseline according to family and friends, intermittent increased confusion continue. she denies pain, fever, nausea. pt in good spirits evidenced by sense of humor. Functional Status: Reports: Pain Controlled, Tolerating Diet, Urinating - Review of Systems General: Reports: No Symptoms HEENT: Reports: No Symptoms Pulmonary: Reports: No Symptoms Cardiovascular: Reports: No Symptoms Genitourinary: Reports: No Symptoms Neurological: Reports: Confusion Psychiatric: Reports: Confusion - Patient Data Vitals - Most Recent: Last Vital Signs Temp 98 F 05/24/21 12:00 Pulse 88 05/24/21 12:00 Resp 20 05/24/21 12:00 BP 114/69 05/24/21 12:00 Pulse Ox 96 05/24/21 12:00 Weight - Most Recent: 149 lb 11.2 oz I&O - Last 24 hours: Intake & Output 05/24/21 05/24/21 05/24/21 06:59 14:59 22:59 Intake Total 400 Output Total 1450 Balance -1050 Lab Results - Last 24 hrs: Laboratory Results - last 24 hr 05/24/21 05/24/21 Range/Units 08:40 08:40 Sodium 135 L (136-145) mmol/L Potassium 4.2 (3.5-5.1) mmol/L Chloride 102 (98-107) mmol/L Carbon Dioxide 33.9 H (21.0-32.0) mmol/L Anion Gap 3.3 L (5.0-15.0) mmol/L BUN 11 (8-26) mg/dL Creatinine 0.91 (0.55-1.02) mg/dL Est Cr Clr Drug Dosing 41.16 mL/min Estimated GFR (MDRD) 59 L (>60) MLS/MIN BUN/Creatinine Ratio 12.1 (6-25) Glucose 179 H (74-100) mg/dL Calcium 8.3 L (8.5-10.1) mg/dL B-Natriuretic Peptide 3541 H (0-450) pg/mL ESMER Results - Last 24 hrs: Microbiology 05/19/21 15:10 Aerobic Blood Culture - Final Blood NO GROWTH AFTER 5 DAYS Anaerobic Blood Culture - Final NO GROWTH AFTER 5 DAYS 05/19/21 15:23 Aerobic Blood Culture - Final Blood NO GROWTH AFTER 5 DAYS Anaerobic Blood Culture - Final NO GROWTH AFTER 5 DAYS Med Orders - Current: Current Medications Acetaminophen (Acetaminophen 325 Mg Tab) 650 mg PO Q6H PRN PRN Reason: Pain/Fever Last Admin: 05/22/21 17:10 Dose: 650 mg Documented by: Albuterol (Albuterol 0.083% 2.5 Mg/3 Ml Neb Soln) 2.5 mg NEB Q6H PRN PRN Reason: Cough Aspirin (Aspirin 81 Mg Tab.Chew) 81 mg PO DAILY [facility] Last Admin: 05/24/21 07:54 Dose: 81 mg Documented by: Cholecalciferol (Cholecalciferol (Vitamin D3) 2,000 Unit Cap) 2,000 unit PO DAILY [facility] Last Admin: 05/24/21 07:54 Dose: 2,000 unit Documented by: Docusate Sodium (Docusate Sodium 100 Mg Cap) 100 mg PO BID PRN PRN Reason: Constipation Last Admin: 05/23/21 17:11 Dose: 100 mg Documented by: Enoxaparin Sodium (Enoxaparin 40 Mg/0.4 Ml Syringe) 40 mg SUBCUT DAILY [facility] Last Admin: 05/24/21 07:55 Dose: 40 mg Documented by: Furosemide (Furosemide 40 Mg/4 Ml Vial) 40 mg IVPUSH BID@0800,1300 [facility] Last Admin: 05/24/21 14:00 Dose: 40 mg Documented by: Ceftriaxone Sodium 1 gm/ (Sodium Chloride) 50 mls @ 100 mls/hr IV BID [facility] Last Admin: 05/24/21 07:50 Dose: 100 mls/hr Documented by: Lactobacillus Acidophilus (Lactobacillus Acidophilus/Lactobacillus Sporogenes (Probiotic) Tab) 1 tab PO DAILY [facility] Last Admin: 05/24/21 07:54 Dose: 1 tab Documented by: Lidocaine (Lidocaine 5% 700 Mg Patch) 700 mg TRDERM Q24H [facility] Last Admin: 05/23/21 19:57 Dose: 700 mg Documented by: Magnesium Oxide (Magnesium Oxide 400 Mg Tab) 400 mg PO DAILY [facility] Last Admin: 05/24/21 07:54 Dose: 400 mg Documented by: Melatonin (Melatonin 3 Mg Tab) 6 mg PO BEDTIME PRN PRN Reason: Insomnia Last Admin: 05/23/21 20:00 Dose: 6 mg Documented by: Metformin HCl (Metformin 500 Mg Tab.Er) 500 mg PO WITHDINNER [facility] Last Admin: 05/23/21 17:10 Dose: 500 mg Documented by: Miscellaneous Information (Remove Patch) 1 ea TRDERM Q24H [facility] Last Admin: 05/24/21 09:21 Dose: 1 ea Documented by: Naproxen (Naproxen 250 Mg Tab) 250 mg PO Q12HR [facility] Last Admin: 05/24/21 07:55 Dose: 250 mg Documented by: Potassium Chloride (Potassium Chloride 20 Meq Tab.Er) 20 meq PO BID [facility] Last Admin: 05/24/21 07:55 Dose: 20 meq Documented by: Prednisone (Prednisone 20 Mg Tab) 20 mg PO WITHBREAKFAST [facility] Last Admin: 05/24/21 07:55 Dose: 20 mg Documented by: Sodium Chloride (Sodium Chloride 0.9% 10 Ml Syringe) 10 ml FLUSH ASDIRECTED PRN PRN Reason: Keep Vein Open Last Admin: 05/23/21 08:15 Dose: 10 ml Documented by: Discontinued Medications Furosemide (Furosemide 40 Mg/4 Ml Vial) 40 mg IVPUSH NOW ONE Stop: 05/19/21 16:27 Last Admin: 05/19/21 16:34 Dose: 40 mg Documented by: Furosemide (Furosemide 40 Mg/4 Ml Vial) Confirm Administered Dose 40 mg .ROUTE .STK-MED ONE Stop: 05/19/21 16:43 Last Admin: 05/19/21 16:41 Dose: Not Given Documented by: Furosemide (Furosemide 40 Mg/4 Ml Vial) 40 mg IVPUSH DAILY [facility] Last Admin: 05/22/21 08:00 Dose: 40 mg Documented by: Furosemide (Furosemide 40 Mg/4 Ml Vial) 40 mg IVPUSH BID [facility] Last Admin: 05/24/21 07:56 Dose: 40 mg Documented by: Furosemide (Furosemide 40 Mg/4 Ml Vial) Confirm Administered Dose 40 mg .ROUTE .STK-MED ONE Stop: 05/24/21 14:19 Ceftriaxone Sodium 1 gm/ (Sodium Chloride) 50 mls @ 100 mls/hr IV ONETIME ONE Stop: 05/19/21 15:40 Last Admin: 05/19/21 15:54 Dose: 100 mls/hr Documented by: Potassium Chloride 10 meq/ (Premix) 50 mls @ 50 mls/hr IV Q1H [facility] Stop: 05/19/21 18:59 Last Admin: 05/19/21 16:38 Dose: 50 mls/hr Documented by: Potassium Chloride (Kcl In Water 10 Meq/50 Ml) Confirm Administered Dose 50 mls @ as directed .ROUTE .ST-MED ONE Stop: 05/19/21 16:49 Last Admin: 05/19/21 17:32 Dose: Not Given Documented by: Potassium Chloride (Kcl In Water 10 Meq/50 Ml) Confirm Administered Dose 50 mls @ as directed .ROUTE .[facility] ONE Stop: 05/19/21 17:47 Last Admin: 05/19/21 17:58 Dose: Not Given Documented by: Potassium Chloride (Kcl In Water 10 Meq/50 Ml) 50 mls @ 50 mls/hr IV ONETIME ONE Stop: 05/19/21 18:59 Last Admin: 05/19/21 18:02 Dose: 50 mls/hr Documented by: Ceftriaxone Sodium 1 gm/ (Sodium Chloride) 50 mls @ 200 mls/hr IV ONETIME ONE Stop: 05/19/21 18:32 Last Admin: 05/19/21 19:47 Dose: 200 mls/hr Documented by: Ceftriaxone Sodium 1 gm/ (Sodium Chloride) 50 mls @ 100 mls/hr IV DAILY [facility] Last Admin: 05/20/21 07:55 Dose: 100 mls/hr Documented by: Potassium Chloride (Kcl In Water 10 Meq/50 Ml) Confirm Administered Dose 50 mls @ as directed .ROUTE .STK-MED ONE Stop: 05/20/21 00:01 Last Admin: 05/20/21 00:30 Dose: 50 mls/hr Documented by: Sodium Chloride (Normal Saline) 1,000 mls @ 333 mls/hr IV BOLUS [facility] Stop: 05/20/21 03:16 Last Admin: 05/20/21 00:31 Dose: 333 mls/hr Documented by: Sodium Chloride (Normal Saline) 1,000 mls @ 100 mls/hr IV ASDIRECTED [facility] Last Admin: 05/20/21 22:54 Dose: 100 mls/hr Documented by: Potassium Chloride (Kcl In Water 10 Meq/50 Ml) Confirm Administered Dose 50 mls @ as directed .ROUTE .[facility] ONE Stop: 05/20/21 03:27 Last Admin: 05/20/21 03:27 Dose: 50 mls/hr Documented by: Potassium Chloride (Kcl In Water 10 Meq/50 Ml) 50 mls @ 50 mls/hr IV Q1H [facility] Stop: 05/20/21 17:59 Last Admin: 05/20/21 17:29 Dose: 50 mls/hr Documented by: Lidocaine (Lidocaine 5% 700 Mg Patch) 700 mg TRDERM Q24H [facility] Last Admin: 05/20/21 20:00 Dose: 700 mg Documented by: Melatonin (Melatonin 3 Mg Tab) Confirm Administered Dose 6 mg .ROUTE .[facility] ONE Stop: 05/23/21 19:54 Last Admin: 05/24/21 00:04 Dose: Not Given Documented by: Metformin HCl (Metformin 500 Mg Tab.Er) 500 mg PO BIDMEALS [facility] Naproxen (Naproxen 250 Mg Tab) 250 mg PO Q12HR ONE Stop: 05/19/21 18:26 Last Admin: 05/19/21 19:49 Dose: 250 mg Documented by: Potassium Chloride (Potassium Chloride 40 Meq/20 Ml Sdv) 20 meq IV NOW STA Stop: 05/19/21 16:23 Potassium Chloride (Potassium Chloride 40 Meq/20 Ml Sdv) 20 meq IV NOW STA Stop: 05/20/21 15:31 Potassium Chloride (Potassium Chloride 20 Meq Tab.Er) 40 meq PO BID [facility] Last Admin: 05/22/21 08:39 Dose: 40 meq Documented by: - Exam Quality Assessment: Reports: Supplemental Oxygen (at hs, or own CPAP ), DVT Prophylaxis General: Reports: Alert, Oriented (self, situation, place. not date) HEENT: Reports: Pupils Equal, Pupils Reactive, EOMI Lungs: Reports: Normal Respiratory Effort, Crackles (bilateral lower lobes) Cardiovascular: Reports: Regular Rate, Regular Rhythm, Murmurs (5/6) Extremities: Normal Range of Motion, Non-Tender, Normal Capillary Refill, Pedal Edema Skin: Reports: Warm, Dry, Intact Neurological: Reports: No New Focal Deficit Psy/Mental Status: Reports: Alert, Normal Affect, Normal Mood *Q Meaningful Use (DIS) - VTE *Q VTE Mechanical Contraindications *Q: At Risk for Falls VTE Pharmacological Contraindications *Q: Risk of Bleeding
[2021-05-24] MEDS: Docusate Sodium 100 MG Cap PO PRN (17:46)
[2021-05-24] MEDS: metFORMIN 500 MG Tab.ER PO SCH (17:46)
[2021-05-24] MEDS: Lidocaine 5% 700 MG Patch TRDERM SCH (20:22)
[2021-05-25] MEDS: Furosemide 40 MG/4 ML VIAL IVPUSH SCH (07:56)
[2021-05-25] MEDS: Lactobacillus Acidophilus/Lactobacillus Sporogenes (Probiotic) Tab PO SCH (07:57)
[2021-05-25] MEDS: Magnesium Oxide 400 MG Tab PO SCH (07:57)
[2021-05-25] MEDS: predniSONE 20 MG Tab PO SCH (07:57)
[2021-05-25] MEDS: Naproxen 250 MG Tab PO SCH (07:57)
[2021-05-25] MEDS: Enoxaparin 40 MG/0.4 ML Syringe SUBCUT SCH (07:57)
[2021-05-25] MEDS: Potassium Chloride 20 MEQ Tab.ER PO SCH (07:57)
[2021-05-25] MEDS: Aspirin 81 MG Tab.Chew PO SCH (07:57)
[2021-05-25] MEDS: Cholecalciferol (Vitamin D3) 2,000 Unit Cap PO SCH (07:57)
[2021-05-25] MEDS: cefTRIAXone 1 GM in Sodium Chloride 0.9% 50 ML IV SCH (07:58)
[2021-05-25 08:39] VITALS: BP 132/70; PULSE 82
== END 2021-05-25 09:20 | disposition swing bed (61) | DRG 602 ==
LOC: LB.ED 14:20 → LB.MS 16:47
PROVIDERS: ADMIT Registered Nurse; ATTEND Registered Nurse
DX: L03.115 Cellulitis of right lower limb (principal); I50.23 Acute on chronic systolic (congestive) heart failure; E87.1 Hypo-osmolality and hyponatremia; N39.0 Urinary tract infection, site not specified; N30.01 Acute cystitis with hematuria; K86.1 Other chronic pancreatitis; I11.0 Hypertensive heart disease with heart failure; H81.10 Benign paroxysmal vertigo, unspecified ear; E87.6 Hypokalemia; J45.909 Unspecified asthma, uncomplicated; Z79.82 Long term (current) use of aspirin; Z79.52 Long term (current) use of systemic steroids; Z79.899 Other long term (current) drug therapy; Z88.8 Allergy status to other drugs, medicaments and biological substances; H54.7 Unspecified visual loss; G47.30 Sleep apnea, unspecified; K21.9 Gastro-esophageal reflux disease without esophagitis; N39.3 Stress incontinence (female) (male); M19.90 Unspecified osteoarthritis, unspecified site; G89.29 Other chronic pain; M54.9 Dorsalgia, unspecified; Z20.822 Contact with and (suspected) exposure to COVID-19; Z86.73 Personal history of transient ischemic attack (TIA), and cerebral infarction without residual deficits; Z90.49 Acquired absence of other specified parts of digestive tract; Z96.653 Presence of artificial knee joint, bilateral
CPT/HCPCS: 36415; 80053; 81001; 83605; 83735; 83880; 85025; 87040 ×2; 87086; 87088; 87186; 93005; 96365; 96375; 99285; A0425; A0429; J0696; J1940; J3480; U0002; 29581-GP; 51702; 80048; 82947; 83036; 97110-GP; 97161-GP; 97166-GO; 97530-GO; 97597-GP; A9270-GY; J1650; J7030; J7512

== ENCOUNTER 2021-09-26 11:04 | Emergency (ER) | payer MEDICARE, BC ==
[2021-09-26] MEDS ORDERED: Orphenadrine 60 MG/2 ML Inj IM ONE (15:13)
[2021-09-26 15:28] VITALS: BP 132/75; PULSE 96
--- NOTE | 2021-09-26 15:41 | EDM.PDOC ---
ED HPI GENERAL MEDICAL PROBLEM - General Chief Complaint: Back Pain or Injury Stated Complaint: uti Time Seen by Provider: 09/26/21 14:00 Source of Information: Reports: Patient History Limitations: Reports: No Limitations - History of Present Illness INITIAL COMMENTS - FREE TEXT/NARRATIVE: 81-year-old female brought to the ED from the nursing facility for possible UTI/back pain. Patient is a poor historian regarding her symptoms. Patient unable to recall the types of symptoms she is experiencing. The only thing that she is able to relate is her back pain which he states has been ongoing for approximately 1 month. Patient unable to articulate changes in urine color, urine smell, urine frequency. Patient denies new abdominal pain, dysuria, Chest pain, shortness of breath, trauma. Patient denies weight loss, fever, chills, fatigue. Back Pain Score (Numeric/FACES): 7 - Related Data Allergies Allergy/AdvReac Type Severity Reaction Status Date / Time fluticasone propionate Allergy Cannot Verified 05/25/21 09:35 [From Advair Diskus] Remember niacin Allergy Cannot Verified 05/25/21 09:35 Remember pentazocine lactate Allergy Cannot Verified 05/25/21 09:35 [From Talwin] Remember salmeterol xinafoate Allergy Cannot Verified 05/25/21 09:35 [From Advair Diskus] Remember Home Meds: Home Meds Aspirin 81 mg PO DAILY 12/08/17 [History] predniSONE [Prednisone] 20 mg PO DAILY 03/09/21 [History] Cholecalciferol (Vitamin D3) [Vitamin D3] 2,000 unit PO DAILY 05/19/21 [History] Furosemide [Lasix] 20 mg PO BID 05/19/21 [History] Acetaminophen 650 mg PO Q6H PRN 05/25/21 [History] Albuterol [Proventil Neb Soln] 2.5 mg INH Q6H PRN 05/25/21 [History] Docusate Sodium 100 mg PO BID PRN 05/25/21 [History] Lactobacillus Acidophilus [Acidophilus] 1 each PO DAILY 05/25/21 [History] Lidocaine 5% [Lidoderm 5%] 1 patch TOP BEDTIME PRN 05/25/21 [History] Magnesium Oxide 400 mg PO DAILY 05/25/21 [History] Melatonin 6 mg PO BEDTIME PRN 05/25/21 [History] Naproxen 250 mg PO BID 05/25/21 [History] Potassium Chloride 20 meq PO BID 05/25/21 [History] metFORMIN HCl [Metformin HCl] 500 mg PO WITHDINNER 05/25/21 [History] Omeprazole 20 mg PO DAILY 06/17/21 [History] cefUROXime axetiL [Cefuroxime] 500 mg PO BID 4 Days #8 tablet 09/26/21 [Rx] tiZANidine 2 mg PO ASDIRECTED PRN 09/26/21 [History] Past Medical History HEENT History: Reports: Cataract, Impaired Vision, Other (See Below) Other HEENT History: Benign paroxismal positional vertigo Cardiovascular History: Reports: Heart Failure, Heart Murmur, Hypertension Other Cardiovascular History: vein stripping right leg 1991, vein ligation both legs, Angiogram 1990 and multiple stress tests, carotid US-2001 2006 2010 2011, possible pulmonary hypertension Respiratory History: Reports: Asthma, Sleep Apnea, Other (See Below) Other Respiratory History: environmental allergies Gastrointestinal History: Reports: GERD, Pancreatitis Other Gastrointestinal History: autoimmune pancreatitis, 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 fractured femur. fractuers pelvis. back spasms Neurological History: Reports: Migraines, TIA Other Neuro History: april 29 TIA Psychiatric History: Reports: Anxiety, Dementia, Depression Other Psychiatric History: short term memory Endocrine/Metabolic History: Reports: Diabetes, Type II Hematologic History: Reports: Anesthesia Reaction, Blood Transfusion(s), Other (See Below) Other Hematologic History: unexpected E antibody for blood transfusions Immunologic History: Reports: Other (See Below) Other Immunologic History: autoimmune pancreatitis Dermatologic History: Reports: Cellulitis - Infectious Disease History Infectious Disease History: Reports: Chicken Pox, Influenza, Measles, Mumps, Pertussis (Whooping Cough), Rubella, Other (See Below) Other Infectious Disease History: polio at 13yrs old - Past Surgical History GI Surgical History: Reports: Appendectomy Other GI Surgeries/Procedures: 1964 apendectomy wit etopic Female Surgical History: Reports: Other (See Below) Other Female Surgeries/Procedures: fallopian tubes removed with etopic sx Musculoskeletal Surgical History: Reports: Knee Replacement, Other (See Below) Other Musculoskeletal Surgeries/Procedures:: hip # with two rods, bilateral knee replacement Social & Family History - Family History Family Medical History: No Pertinent Family History - Tobacco Use Tobacco Use Status *Q: Never Tobacco User - Caffeine Use Caffeine Use: Reports: Soda, Tea Other Caffeine Use: 3 bags of tea/day, 20oz pop/day ED ROS GENERAL - Review of Systems Review Of Systems: Unable To Obtain Reason Not Obtained: poor historian, unable to recall specifics regarding health ED EXAM, RENAL/ - Physical Exam Exam: See Below Text/Narrative:: ABC intact. No apparent distress. No obvious trauma. Speaking in full sentences. Alert and oriented x3, GCS 456. Exam Limited By: No Limitations General Appearance: Alert, WD/WN, No Apparent Distress Eye Exam: Bilateral Eye: EOMI, PERRL Throat/Mouth: Normal Voice, No Airway Compromise Head: Atraumatic, Normocephalic Neck: Normal Inspection, Supple, Non-Tender. No: Lymphadenopathy (R), Lymphadenopathy (L) Respiratory/Chest: No Respiratory Distress, Lungs Clear, Normal Breath Sounds, No Accessory Muscle Use, Chest Non-Tender Cardiovascular: Normal Peripheral Pulses, Regular Rate, Rhythm, No Edema, No Gallop, No JVD, No Murmur (Despite history of murmur none was heard today), No Rub GI/Abdominal: Soft, Non-Tender, No Distention, No Mass, Tender. No: Guarding, Rigid Rectal (Female) Exam: Deferred Back Exam: Normal Inspection, Full Range of Motion, Other (Not able to replicate patient's pain derived from spasm). No: CVA Tenderness (R), CVA Tenderness (L), Paraspinal Tenderness, Vertebral Tenderness Neurological: Alert, Oriented, Normal Cognition Psychiatric: Normal Affect, Normal Mood Skin Exam: Warm, Dry, Intact, Normal Color Course - Vital Signs Last Recorded V/S: Last Vital Signs Temp 97.7 F 09/26/21 15:26 Pulse 96 09/26/21 15:26 Resp 16 09/26/21 15:26 BP 132/75 09/26/21 15:26 Pulse Ox 96 09/26/21 15:26 - Orders/Labs/Meds Labs: Laboratory Tests 09/26/21 09/26/21 09/26/21 Range/Units 11:00 14:00 14:00 WBC 10.6 (4.0-11.0) K/uL RBC 4.57 (3.80-5.80) M/uL Hgb 12.2 (11.5-16.5) g/dL Hct 37.5 (37.0-47.0) % MCV 82 (76-96) fL MCH 26.7 L (27.0-32.0) pg MCHC 32.5 (31.0-35.0) g/dL RDW 15.4 (11.0-16.0) % Plt Count 251 (150-500) K/uL MPV 8.3 (6.0-10.0) fL Neut % (Auto) 88.4 H (45.0-70.0) % Lymph % (Auto) 9.2 L (20.0-40.0) % [place] % (Auto) 2.1 L (3.0-10.0) % Eos % (Auto) 0.1 L (1.0-5.0) % Baso % (Auto) 0.2 (0.0-0.5) % Neut # (Auto) 9.39 H (2.00-7.50) K/uL Lymph # (Auto) 0.98 L (1.50-4.00) K/uL [place] # (Auto) 0.22 (0.20-0.80) K/uL Eos # (Auto) 0.01 L (0.04-0.40) K/uL Baso # (Auto) 0.02 (0.02-0.10) K/uL Sodium 134 L (136-145) mmol/L Potassium 4.9 D (3.5-5.1) mmol/L Chloride 98 (98-107) mmol/L Carbon Dioxide 29.2 (21.0-32.0) mmol/L Anion Gap 11.7 (5.0-15.0) mmol/L BUN 15 (8-26) mg/dL Creatinine 1.02 (0.55-1.02) mg/dL Est Cr Clr Drug Dosing TNP Estimated GFR (MDRD) 52 L (>60) MLS/MIN BUN/Creatinine Ratio 14.7 (6-25) Glucose 235 H D (74-100) mg/dL Calcium 9.1 (8.5-10.1) mg/dL Urine Color Yellow Urine Appearance Clear (CLEAR) Urine pH 7.0 (5.0-8.0) Ur Specific [place] 1.020 (1.003-1.030) Urine Protein Negative (NEGATIVE) mg/dL Urine Glucose (UA) Negative (NEGATIVE) mg/dL Urine Ketones Negative (NEGATIVE) mg/dL Urine Occult Blood Negative (NEGATIVE) Urine Nitrite Negative (NEGATIVE) Urine Bilirubin Negative (NEGATIVE) Urine Urobilinogen 0.2 (0.2-1.0) E.U./dL Ur Leukocyte Esterase Trace H (NEGATIVE) Urine RBC 0-5 H /HPF Urine WBC 10-20 H /HPF Ur Squamous Epith Cells Occasional /HPF Urine Bacteria Many H /HPF Meds: Medications Discontinued Medications Generic Name Dose Route Start Last Admin Trade Name Freq PRN Reason Stop Dose Admin Orphenadrine Citrate 60 mg 09/26/21 15:13 Orphenadrine 60 Mg/2 Ml Inj IM 09/26/21 15:14 ONETIME ONE Departure - Departure Time of Disposition: 15:30 Disposition: DC/Tfer to [facility] 03 Condition: Good Clinical Impression: UTI (urinary tract infection) Qualifiers: Urinary tract infection type: acute cystitis Hematuria presence: with hematuria Qualified Code(s): N30.01 - Acute cystitis with hematuria - Discharge Information *PRESCRIPTION DRUG MONITORING PROGRAM REVIEWED*: No *COPY OF PRESCRIPTION DRUG MONITORING REPORT IN PATIENT TIKA: No Prescriptions: cefUROXime axetiL [Cefuroxime] 500 mg PO BID 4 Days #8 tablet Forms: ED Department Discharge Sepsis Event Note (ED) - Evaluation Sepsis Screening Result: No Definite Risk Current Stage of Sepsis: Ruled Out Reason for Ruling Out Sepsis: Negative SIRS assessment = 0 - Focused Exam Vital Signs: Vital Signs Temp Pulse Resp BP Pulse Ox 09/26/21 15:26 97.7 F 96 16 132/75 96 - Assessment/Plan Assessment:: 81-year-old female presents today with vague symptoms that nursing facility believed to be related to a possible urinary tract infection as detailed above. Urinalysis was obtained and is consistent with a urinary tract infection. Patient is nontoxic-appearing with no CVA tenderness, vomiting, fever. Presentation is not suggestive for pyelonephritis, infected stone, renal abscess. No indication for further work-up at this time. Patient was prescribed a 6-day course of cefuroxime. Urine culture was not performed as UA was ordered by different provider with no leftover specimen for culture. Patient should follow-up with primary care provider within 1 week for recheck and return immediately if fever, nausea vomiting, CVA tenderness, chills, or any other new or worsening symptoms. Back painpatient was treated for back spasm as well. Patient given Norflex 60 mg IM. Plan: UA, airway breathing circulation, history, exam, Norflex IM for back spasm, prescription for cefuroxime, patient returned to [facility]. -Patient and/or financial service representative understood and agreed to treatment plan. -All questions were answered to the patient's satisfaction. -Patient is discharged in stable condition. Patient to return to the ED if symptoms increase/return. Follow-up with primary care provider within 1 week.
== END 2021-09-26 15:40 ==
LOC: LB.ED 11:04
DX: N30.01 Acute cystitis with hematuria (principal); I11.0 Hypertensive heart disease with heart failure; I50.9 Heart failure, unspecified; E11.9 Type 2 diabetes mellitus without complications; Z88.1 Allergy status to other antibiotic agents; Z88.8 Allergy status to other drugs, medicaments and biological substances; Z79.899 Other long term (current) drug therapy; Z79.82 Long term (current) use of aspirin; Z79.84 Long term (current) use of oral hypoglycemic drugs
CPT/HCPCS: 36415; 80048; 81001; 85025; 96372; 99283; J2360

== ENCOUNTER 2022-03-12 23:08 | Emergency (ER) | payer MEDICARE, BC, MEDICAID ==
[2022-03-12 23:28] VITALS: BP 139/74; PULSE 79
[2022-03-13] MEDS: HYDROmorphone 2 MG/ML Syringe ONE (00:10)
[2022-03-13] MEDS: HYDROmorphone 2 MG/ML SDV IM ONE (00:15)
== END 2022-03-13 03:25 ==
LOC: LB.ED 23:08
DX: S72.142A Displaced intertrochanteric fracture of left femur, initial encounter for closed fracture (principal); I50.9 Heart failure, unspecified; E11.9 Type 2 diabetes mellitus without complications; Z20.822 Contact with and (suspected) exposure to COVID-19; W01.10XA Fall on same level from slipping, tripping and stumbling with subsequent striking against unspecified object, initial encounter
CPT/HCPCS: 36415; 73502-LT; 80048; 85025; 93005; 96372; 99284-25; J1170; U0002

== ENCOUNTER 2022-03-17 13:47 | Inpatient (IN) | payer MEDICARE, BC, MEDICAID ==
[2022-03-17] MEDS ORDERED: Acetaminophen 500 MG Tab ONE (17:18)
[2022-03-17] MEDS ORDERED: Lidocaine 5% 700 MG Patch TOP PRN (17:37)
[2022-03-17] MEDS ORDERED: Magnesium Hydroxide 400 MG/5 ML Susp 30 ML Cup PO PRN (17:37)
[2022-03-17] MEDS ORDERED: Albuterol 0.083% 2.5 MG/3 ML Neb Soln INH PRN (17:37)
[2022-03-17] MEDS ORDERED: Acetaminophen 500 MG Tab PO PRN ×2 (18:00→22:00)
[2022-03-17] MEDS ORDERED: traMADol 50 MG Tab PO PRN (22:01)
[2022-03-17] MEDS: Pantoprazole 40 MG Tab.CR PO SCH (22:19)
[2022-03-17] MEDS: Potassium Chloride 20 MEQ Tab.ER PO SCH (22:23)
[2022-03-18] MEDS: Acetaminophen 500 MG Tab PO SCH ×3 (05:23→22:14)
[2022-03-18] MEDS: Cholecalciferol (Vitamin D3) 2,000 Unit Cap PO SCH (07:49)
[2022-03-18] MEDS: metFORMIN 500 MG Tab PO SCH ×2 (07:49→17:11)
[2022-03-18] MEDS: Pantoprazole 40 MG Tab.CR PO SCH ×2 (07:49→19:24)
[2022-03-18] MEDS: Magnesium Oxide 400 MG Tab PO SCH (07:49)
[2022-03-18] MEDS: predniSONE 20 MG Tab PO SCH (07:49)
[2022-03-18] MEDS: Potassium Chloride 20 MEQ Tab.ER PO SCH ×2 (07:50→19:24)
[2022-03-18] MEDS: Calcium Carbonate 500 MG Tab.Chew PO SCH ×2 (07:50→19:24)
[2022-03-18] MEDS: Docusate Sodium 100 MG Cap PO SCH (07:50)
[2022-03-18] MEDS: Furosemide 20 MG Tab PO SCH ×2 (07:50→17:12)
[2022-03-18] MEDS: Calcitonin (Salmon) Nasal Spray 3.7 ML Bottle NAS SCH (07:52)
[2022-03-18] MEDS ORDERED: Tuberculin, PPD 5 Units/0.1 ML 1 ML MDV IDERM ONE (08:00)
[2022-03-18] MEDS ORDERED: traMADol 50 MG Tab PO PRN (08:21)
[2022-03-18] MEDS ORDERED: ACETAMINOPHEN 500 MG PO SCH (14:00)
[2022-03-19] MEDS: Acetaminophen 500 MG Tab PO SCH ×3 (06:10→21:41)
[2022-03-19] MEDS: Pantoprazole 40 MG Tab.CR PO SCH ×2 (06:10→19:34)
[2022-03-19] MEDS: predniSONE 20 MG Tab PO SCH (08:35)
[2022-03-19] MEDS: Cholecalciferol (Vitamin D3) 2,000 Unit Cap PO SCH (08:35)
[2022-03-19] MEDS: Furosemide 20 MG Tab PO SCH ×2 (08:35→17:07)
[2022-03-19] MEDS: Calcium Carbonate 500 MG Tab.Chew PO SCH ×2 (08:35→19:34)
[2022-03-19] MEDS: Magnesium Oxide 400 MG Tab PO SCH (08:35)
[2022-03-19] MEDS: Docusate Sodium 100 MG Cap PO SCH (08:35)
[2022-03-19] MEDS: Potassium Chloride 20 MEQ Tab.ER PO SCH ×2 (08:35→19:34)
[2022-03-19] MEDS: metFORMIN 500 MG Tab PO SCH ×2 (08:35→17:07)
[2022-03-19] MEDS: Calcitonin (Salmon) Nasal Spray 3.7 ML Bottle NAS SCH (10:41)
[2022-03-19] MEDS ORDERED: traMADol 50 MG Tab PO PRN (11:29)
[2022-03-20] MEDS: Acetaminophen 500 MG Tab PO SCH ×3 (06:03→21:15)
[2022-03-20] MEDS: Pantoprazole 40 MG Tab.CR PO SCH ×2 (06:05→19:46)
[2022-03-20] MEDS: Calcitonin (Salmon) Nasal Spray 3.7 ML Bottle NAS SCH (07:23)
[2022-03-20] MEDS: Cholecalciferol (Vitamin D3) 2,000 Unit Cap PO SCH (07:24)
[2022-03-20] MEDS: Magnesium Oxide 400 MG Tab PO SCH (07:24)
[2022-03-20] MEDS: predniSONE 20 MG Tab PO SCH (07:24)
[2022-03-20] MEDS: Docusate Sodium 100 MG Cap PO SCH (07:24)
[2022-03-20] MEDS: Calcium Carbonate 500 MG Tab.Chew PO SCH ×2 (07:24→19:45)
[2022-03-20] MEDS: Furosemide 20 MG Tab PO SCH ×2 (07:24→15:15)
[2022-03-20] MEDS: Potassium Chloride 20 MEQ Tab.ER PO SCH ×2 (07:24→19:46)
[2022-03-20] MEDS: metFORMIN 500 MG Tab PO SCH ×2 (07:26→17:47)
[2022-03-21] MEDS: Acetaminophen 500 MG Tab PO SCH ×3 (08:05→22:09)
[2022-03-21] MEDS: Lactobacillus Acidophilus/Lactobacillus Sporogenes (Probiotic) Tab PO SCH (08:05)
[2022-03-21] MEDS: Pantoprazole 40 MG Tab.CR PO SCH ×2 (08:05→19:27)
[2022-03-21] MEDS: Calcium Carbonate 500 MG Tab.Chew PO SCH ×2 (08:06→19:27)
[2022-03-21] MEDS: Cholecalciferol (Vitamin D3) 2,000 Unit Cap PO SCH (08:06)
[2022-03-21] MEDS: metFORMIN 500 MG Tab PO SCH ×2 (08:06→16:31)
[2022-03-21] MEDS: Potassium Chloride 20 MEQ Tab.ER PO SCH ×2 (08:06→19:27)
[2022-03-21] MEDS: predniSONE 20 MG Tab PO SCH (08:06)
[2022-03-21] MEDS: Magnesium Oxide 400 MG Tab PO SCH (08:06)
[2022-03-21] MEDS: Docusate Sodium 100 MG Cap PO SCH (08:06)
[2022-03-21] MEDS: Furosemide 20 MG Tab PO SCH ×2 (08:06→16:30)
[2022-03-21] MEDS: Calcitonin (Salmon) Nasal Spray 3.7 ML Bottle NAS SCH ×2 (08:07→14:49)
[2022-03-22] MEDS: Acetaminophen 500 MG Tab PO SCH ×3 (06:03→21:23)
[2022-03-22] MEDS: Pantoprazole 40 MG Tab.CR PO SCH ×2 (06:03→19:43)
[2022-03-22] MEDS: Calcitonin (Salmon) Nasal Spray 3.7 ML Bottle NAS SCH (07:25)
[2022-03-22] MEDS: Docusate Sodium 100 MG Cap PO SCH (07:26)
[2022-03-22] MEDS: Magnesium Oxide 400 MG Tab PO SCH (07:26)
[2022-03-22] MEDS: Lactobacillus Acidophilus/Lactobacillus Sporogenes (Probiotic) Tab PO SCH (07:26)
[2022-03-22] MEDS: Furosemide 20 MG Tab PO SCH ×2 (07:26→16:47)
[2022-03-22] MEDS: Calcium Carbonate 500 MG Tab.Chew PO SCH ×2 (07:26→19:44)
[2022-03-22] MEDS: Potassium Chloride 20 MEQ Tab.ER PO SCH ×2 (07:26→19:43)
[2022-03-22] MEDS: Cholecalciferol (Vitamin D3) 2,000 Unit Cap PO SCH (07:26)
[2022-03-22] MEDS: predniSONE 20 MG Tab PO SCH (07:26)
[2022-03-22] MEDS: metFORMIN 500 MG Tab PO SCH ×2 (07:26→16:47)
[2022-03-22] MEDS ORDERED: Lidocaine 5% 700 MG Patch TOP PRN (08:42)
[2022-03-23] MEDS: Acetaminophen 500 MG Tab PO SCH ×3 (05:48→23:50)
[2022-03-23] MEDS: Pantoprazole 40 MG Tab.CR PO SCH ×2 (06:03→19:54)
[2022-03-23] MEDS: Lidocaine 5% 700 MG Patch TOP SCH (07:28)
[2022-03-23] MEDS: predniSONE 20 MG Tab PO SCH (07:31)
[2022-03-23] MEDS: metFORMIN 500 MG Tab PO SCH ×2 (07:33→16:31)
[2022-03-23] MEDS: Docusate Sodium 100 MG Cap PO SCH (07:33)
[2022-03-23] MEDS: Cholecalciferol (Vitamin D3) 2,000 Unit Cap PO SCH (07:35)
[2022-03-23] MEDS: Lactobacillus Acidophilus/Lactobacillus Sporogenes (Probiotic) Tab PO SCH (07:36)
[2022-03-23] MEDS: Potassium Chloride 20 MEQ Tab.ER PO SCH ×2 (07:37→19:54)
[2022-03-23] MEDS: Furosemide 20 MG Tab PO SCH ×2 (07:38→16:31)
[2022-03-23] MEDS: Magnesium Oxide 400 MG Tab PO SCH (07:39)
[2022-03-23] MEDS: Calcium Carbonate 500 MG Tab.Chew PO SCH ×2 (07:40→19:55)
[2022-03-23] MEDS: Calcitonin (Salmon) Nasal Spray 3.7 ML Bottle NAS SCH (07:48)
[2022-03-23] MEDS: Melatonin 3 MG Tab PO PRN (19:54)
[2022-03-23] MEDS: Sulfamethoxazole/Trimethoprim 800-160 MG Tab PO SCH (19:54)
[2022-03-23] MEDS ORDERED: Ciprofloxacin 250 MG Tab PO SCH (20:00)
[2022-03-24] MEDS: Cholecalciferol (Vitamin D3) 2,000 Unit Cap PO SCH (07:59)
[2022-03-24] MEDS: Furosemide 20 MG Tab PO SCH ×2 (07:59→16:17)
[2022-03-24] MEDS: Docusate Sodium 100 MG Cap PO SCH (07:59)
[2022-03-24] MEDS: predniSONE 20 MG Tab PO SCH (07:59)
[2022-03-24] MEDS: metFORMIN 500 MG Tab PO SCH ×2 (07:59→16:37)
[2022-03-24] MEDS: Magnesium Oxide 400 MG Tab PO SCH (07:59)
[2022-03-24] MEDS: Lactobacillus Acidophilus/Lactobacillus Sporogenes (Probiotic) Tab PO SCH (08:00)
[2022-03-24] MEDS: Acetaminophen 500 MG Tab PO SCH ×2 (08:00→14:11)
[2022-03-24] MEDS: Sulfamethoxazole/Trimethoprim 800-160 MG Tab PO SCH ×2 (08:00→19:43)
[2022-03-24] MEDS: Pantoprazole 40 MG Tab.CR PO SCH ×2 (08:00→19:51)
[2022-03-24] MEDS: Calcium Carbonate 500 MG Tab.Chew PO SCH ×2 (08:00→19:46)
[2022-03-24] MEDS: Potassium Chloride 20 MEQ Tab.ER PO SCH ×2 (08:00→19:40)
[2022-03-24] MEDS: Calcitonin (Salmon) Nasal Spray 3.7 ML Bottle NAS SCH (08:05)
[2022-03-24] MEDS: Lidocaine 5% 700 MG Patch TOP SCH (10:18)
[2022-03-24] MEDS: Melatonin 3 MG Tab PO PRN (19:41)
[2022-03-25] MEDS: Acetaminophen 500 MG Tab PO SCH ×4 (04:51→23:00)
[2022-03-25] MEDS: Pantoprazole 40 MG Tab.CR PO SCH ×2 (06:27→20:24)
[2022-03-25] MEDS: Potassium Chloride 20 MEQ Tab.ER PO SCH ×2 (08:06→20:23)
[2022-03-25] MEDS: Furosemide 20 MG Tab PO SCH ×2 (08:07→16:19)
[2022-03-25] MEDS: Magnesium Oxide 400 MG Tab PO SCH (08:07)
[2022-03-25] MEDS: predniSONE 20 MG Tab PO SCH (08:08)
[2022-03-25] MEDS: Docusate Sodium 100 MG Cap PO SCH (08:11)
[2022-03-25] MEDS: metFORMIN 500 MG Tab PO SCH ×2 (08:11→17:10)
[2022-03-25] MEDS: Cholecalciferol (Vitamin D3) 2,000 Unit Cap PO SCH (08:11)
[2022-03-25] MEDS: Sulfamethoxazole/Trimethoprim 800-160 MG Tab PO SCH (08:11)
[2022-03-25] MEDS: Calcium Carbonate 500 MG Tab.Chew PO SCH ×2 (08:12→20:12)
[2022-03-25] MEDS: Lidocaine 5% 700 MG Patch TOP SCH (08:16)
[2022-03-25] MEDS: Lactobacillus Acidophilus/Lactobacillus Sporogenes (Probiotic) Tab PO SCH (08:16)
[2022-03-25] MEDS: Calcitonin (Salmon) Nasal Spray 3.7 ML Bottle NAS SCH (08:20)
[2022-03-25] MEDS ORDERED: Ciprofloxacin 500 MG Tab PO SCH (16:00)
[2022-03-25] MEDS: Melatonin 3 MG Tab PO PRN (20:24)
[2022-03-26] MEDS: Acetaminophen 500 MG Tab PO SCH (06:37)
[2022-03-26] MEDS: Pantoprazole 40 MG Tab.CR PO SCH (06:38)
[2022-03-26 07:46] VITALS: BP 109/51; PULSE 82
[2022-03-26] MEDS: Magnesium Oxide 400 MG Tab PO SCH (08:07)
[2022-03-26] MEDS: Docusate Sodium 100 MG Cap PO SCH (08:07)
[2022-03-26] MEDS: Potassium Chloride 20 MEQ Tab.ER PO SCH (08:07)
[2022-03-26] MEDS: metFORMIN 500 MG Tab PO SCH (08:08)
[2022-03-26] MEDS: Calcium Carbonate 500 MG Tab.Chew PO SCH (08:08)
[2022-03-26] MEDS: Furosemide 20 MG Tab PO SCH (08:08)
[2022-03-26] MEDS: predniSONE 20 MG Tab PO SCH (08:09)
[2022-03-26] MEDS: Lactobacillus Acidophilus/Lactobacillus Sporogenes (Probiotic) Tab PO SCH (08:09)
[2022-03-26] MEDS: Cholecalciferol (Vitamin D3) 2,000 Unit Cap PO SCH (08:09)
[2022-03-26] MEDS: Calcitonin (Salmon) Nasal Spray 3.7 ML Bottle NAS SCH (08:09)
[2022-03-26] MEDS ORDERED: Sodium Chloride 0.9% 10 ML Syringe FLUSH PRN (09:23)
[2022-03-26] MEDS ORDERED: Sodium Chloride 0.9% 1,000 ML IV SCH (09:30)
== END 2022-03-26 11:22 | disposition critical access hospital (66) | DRG 561 ==
LOC: LB.MS 16:22
PROVIDERS: ADMIT Physician Assistant; ATTEND Physician Assistant
DX: S72.002D Fracture of unspecified part of neck of left femur, subsequent encounter for closed fracture with routine healing (principal); H54.7 Unspecified visual loss; I11.0 Hypertensive heart disease with heart failure; I50.9 Heart failure, unspecified; K21.9 Gastro-esophageal reflux disease without esophagitis; J45.909 Unspecified asthma, uncomplicated; G47.30 Sleep apnea, unspecified; R32 Unspecified urinary incontinence; M19.90 Unspecified osteoarthritis, unspecified site; M54.9 Dorsalgia, unspecified; G89.29 Other chronic pain; F41.9 Anxiety disorder, unspecified; F32.A Depression, unspecified; Z90.49 Acquired absence of other specified parts of digestive tract; Z88.8 Allergy status to other drugs, medicaments and biological substances; Z79.52 Long term (current) use of systemic steroids; Z79.84 Long term (current) use of oral hypoglycemic drugs; Z79.51 Long term (current) use of inhaled steroids; Z79.899 Other long term (current) drug therapy; Z87.440 Personal history of urinary (tract) infections
CPT/HCPCS: 36415; 80048; 81001; 82272; 82947; 85025; 86580; 87086; 87088; 87186; 92526-GN; 92610-GN; 97162-GP; 97165-GO; 97530-GO; 97530-GP; 97535-GO; A9270-GY; J7512; U0002

== ENCOUNTER 2022-03-26 09:40 | Inpatient (IN) | payer MEDICARE, BC, MEDICAID ==
[2022-03-26] MEDS ORDERED: Lidocaine 5% 700 MG Patch TOP PRN (10:07)
[2022-03-26] MEDS ORDERED: Albuterol 0.083% 2.5 MG/3 ML Neb Soln INH PRN (10:07)
[2022-03-26] MEDS ORDERED: Melatonin 3 MG Tab PO PRN (10:07)
[2022-03-26] MEDS ORDERED: Calcium Carbonate 500 MG Tab.Chew PO PRN (10:07)
[2022-03-26] MEDS ORDERED: Sodium Chloride 0.9% 10 ML Syringe FLUSH PRN (10:17)
[2022-03-26] MEDS ORDERED: traMADol 50 MG Tab PO PRN (10:22)
[2022-03-26] MEDS: Sodium Chloride 0.9% 1,000 ML IV SCH ×2 (13:06→21:48)
[2022-03-26] MEDS: Lactobacillus Acidophilus/Lactobacillus Sporogenes (Probiotic) Tab PO SCH (13:13)
[2022-03-26] MEDS ORDERED: ACETAMINOPHEN 500 MG PO SCH (14:00)
[2022-03-26] MEDS: Ciprofloxacin in D5W 200 ML IV SCH (15:35)
[2022-03-26] MEDS: Acetaminophen 500 MG Tab PO SCH ×2 (15:38→19:31)
[2022-03-26] MEDS ORDERED: Ciprofloxacin in D5W 400 MG in Premix Bag 1 BAG IV SCH ×2 (16:00)
[2022-03-26] MEDS: metFORMIN 500 MG Tab PO SCH (16:26)
[2022-03-26] MEDS: Potassium Chloride 20 MEQ Tab.ER PO SCH (19:32)
[2022-03-26] MEDS: Furosemide 40 MG Tab PO SCH (19:32)
[2022-03-26] MEDS ORDERED: Non-Formulary Medication 1 Each (Potassium Chloride [Potassium Chloride] 20 MEQ Tablet.Er) PO SCH (20:00)
[2022-03-27] MEDS: Sodium Chloride 0.9% 1,000 ML IV SCH ×2 (04:42→13:37)
[2022-03-27] MEDS: Omeprazole 20 MG Cap.CR PO SCH (07:59)
[2022-03-27] MEDS: Docusate Sodium 100 MG Cap PO SCH (07:59)
[2022-03-27] MEDS ORDERED: Non-Formulary Medication 1 Each (Lactobacillus Acidophilus [Acidophilus] 1 EACH Tablet) PO SCH (08:00)
[2022-03-27] MEDS: Furosemide 40 MG Tab PO SCH ×2 (08:00→20:14)
[2022-03-27] MEDS: Potassium Chloride 20 MEQ Tab.ER PO SCH ×2 (08:01→20:14)
[2022-03-27] MEDS: Acetaminophen 500 MG Tab PO SCH ×3 (08:01→20:15)
[2022-03-27] MEDS: predniSONE 20 MG Tab PO SCH (08:01)
[2022-03-27] MEDS: metFORMIN 500 MG Tab PO SCH ×2 (08:01→19:19)
[2022-03-27] MEDS: Cholecalciferol (Vitamin D3) 2,000 Unit Cap PO SCH (08:02)
[2022-03-27] MEDS: Calcitonin (Salmon) Nasal Spray 3.7 ML Bottle NAS SCH (08:03)
[2022-03-27] MEDS ORDERED: Glycerin Adult 2 GM Supp RECTAL ONE (09:10)
[2022-03-27] MEDS ORDERED: Bisacodyl 10 MG Supp ONE (09:25)
[2022-03-27] MEDS: Lactobacillus Acidophilus/Lactobacillus Sporogenes (Probiotic) Tab PO SCH (12:24)
[2022-03-27] MEDS: Ciprofloxacin in D5W 200 ML IV SCH (15:18)
[2022-03-27] MEDS ORDERED: Sodium Chloride 0.9% 1,000 ML IV SCH (21:15)
[2022-03-28] MEDS: Sodium Chloride 0.9% 1,000 ML IV SCH ×2 (01:40→05:13)
[2022-03-28] MEDS: metFORMIN 500 MG Tab PO SCH ×2 (08:48→18:34)
[2022-03-28] MEDS: Potassium Chloride 20 MEQ Tab.ER PO SCH ×2 (08:49→20:10)
[2022-03-28] MEDS: Acetaminophen 500 MG Tab PO SCH ×3 (08:49→20:10)
[2022-03-28] MEDS: predniSONE 20 MG Tab PO SCH (08:49)
[2022-03-28] MEDS: Cholecalciferol (Vitamin D3) 2,000 Unit Cap PO SCH (08:49)
[2022-03-28] MEDS: Docusate Sodium 100 MG Cap PO SCH (08:50)
[2022-03-28] MEDS: Furosemide 40 MG Tab PO SCH ×2 (08:50→20:09)
[2022-03-28] MEDS: Calcitonin (Salmon) Nasal Spray 3.7 ML Bottle NAS SCH (08:51)
[2022-03-28] MEDS: Polyethylene Glycol 3350 Powder 510 GM Bot PO SCH (08:51)
[2022-03-28] MEDS: Omeprazole 20 MG Cap.CR PO SCH (08:51)
[2022-03-28 09:54] LABS: ESTIMATED GFR > 60 MLS/MIN (>60)
[2022-03-28] MEDS: Lactobacillus Acidophilus/Lactobacillus Sporogenes (Probiotic) Tab PO SCH (12:32)
[2022-03-28] MEDS: Ciprofloxacin in D5W 200 ML IV SCH (15:38)
[2022-03-29] MEDS: Acetaminophen 500 MG Tab PO SCH ×3 (08:10→21:23)
[2022-03-29] MEDS: Cholecalciferol (Vitamin D3) 2,000 Unit Cap PO SCH (08:11)
[2022-03-29] MEDS: predniSONE 20 MG Tab PO SCH (08:11)
[2022-03-29] MEDS: Potassium Chloride 20 MEQ Tab.ER PO SCH ×2 (08:11→21:22)
[2022-03-29] MEDS: metFORMIN 500 MG Tab PO SCH ×2 (08:12→18:03)
[2022-03-29] MEDS: Furosemide 40 MG Tab PO SCH ×2 (08:13→21:23)
[2022-03-29] MEDS: Omeprazole 20 MG Cap.CR PO SCH (08:13)
[2022-03-29] MEDS: Docusate Sodium 100 MG Cap PO SCH (08:13)
[2022-03-29] MEDS: Calcitonin (Salmon) Nasal Spray 3.7 ML Bottle NAS SCH (08:14)
[2022-03-29] MEDS ORDERED: Polyethylene Glycol 3350 Powder 17 GM Packet ONE (09:48)
[2022-03-29] MEDS: Lactobacillus Acidophilus/Lactobacillus Sporogenes (Probiotic) Tab PO SCH (12:00)
[2022-03-29] MEDS: Polyethylene Glycol 3350 Powder 510 GM Bot PO SCH (12:00)
[2022-03-30] MEDS ORDERED: Polyethylene Glycol 3350 Powder 17 GM Packet ONE (07:56)
[2022-03-30] MEDS: Cholecalciferol (Vitamin D3) 2,000 Unit Cap PO SCH (08:00)
[2022-03-30] MEDS: Docusate Sodium 100 MG Cap PO SCH (08:00)
[2022-03-30] MEDS: metFORMIN 500 MG Tab PO SCH (08:01)
[2022-03-30] MEDS: Furosemide 40 MG Tab PO SCH (08:02)
[2022-03-30] MEDS: predniSONE 20 MG Tab PO SCH (08:03)
[2022-03-30] MEDS: Acetaminophen 500 MG Tab PO SCH ×2 (08:03→14:50)
[2022-03-30] MEDS: Potassium Chloride 20 MEQ Tab.ER PO SCH (08:03)
[2022-03-30] MEDS: Omeprazole 20 MG Cap.CR PO SCH (08:03)
[2022-03-30] MEDS: Polyethylene Glycol 3350 Powder 510 GM Bot PO SCH (08:04)
[2022-03-30] MEDS: Calcitonin (Salmon) Nasal Spray 3.7 ML Bottle NAS SCH (08:04)
[2022-03-30 14:40] VITALS: BP 125/68; PULSE 102
[2022-03-30] MEDS ORDERED: Lactobacillus Acidophilus/Lactobacillus Sporogenes (Probiotic) Tab ONE (14:46)
[2022-03-30] MEDS: Lactobacillus Acidophilus/Lactobacillus Sporogenes (Probiotic) Tab PO SCH (14:50)
== END 2022-03-30 15:36 | disposition swing bed (61) | DRG 690 ==
LOC: LB.MS 10:18
PROVIDERS: ADMIT Physician Assistant; ATTEND Physician Assistant
DX: N39.0 Urinary tract infection, site not specified (principal); E87.1 Hypo-osmolality and hyponatremia; D72.829 Elevated white blood cell count, unspecified; T38.0X5A Adverse effect of glucocorticoids and synthetic analogues, initial encounter; Z20.822 Contact with and (suspected) exposure to COVID-19; K21.9 Gastro-esophageal reflux disease without esophagitis; Z96.653 Presence of artificial knee joint, bilateral; J45.909 Unspecified asthma, uncomplicated; G47.30 Sleep apnea, unspecified; F41.9 Anxiety disorder, unspecified; F32.A Depression, unspecified; E11.9 Type 2 diabetes mellitus without complications; G43.909 Migraine, unspecified, not intractable, without status migrainosus; Z86.73 Personal history of transient ischemic attack (TIA), and cerebral infarction without residual deficits; Z79.82 Long term (current) use of aspirin; Z79.899 Other long term (current) drug therapy; Z88.8 Allergy status to other drugs, medicaments and biological substances
CPT/HCPCS: 36415; 80048; 81003; 82947; 85025; 97110-GP; 97530-GO; 97530-GP; 97535-GO; 99223; 99233; A9270-GY; J0744; J7030; J7512; U0002

== ENCOUNTER 2022-03-30 12:50 | Inpatient (IN) | payer MEDICARE, BC, MEDICAID ==
[~2022-03-30 12:50] MED LIST changes: -Metoclopramide 10 MG/2 ML SDV IV PRN; -Sodium Chloride 0.9% 1,000 ML IV SCH; -Sodium Chloride 0.9% 10 ML Syringe FLUSH PRN; +metFORMIN 500 MG Tab PO SCH
[2022-03-30] MEDS ORDERED: Albuterol 0.083% 2.5 MG/3 ML Neb Soln INH PRN (14:13)
[2022-03-30] MEDS ORDERED: Magnesium Hydroxide 400 MG/5 ML Susp 473 ML Bottle PO PRN (14:13)
[2022-03-30] MEDS ORDERED: Lidocaine 5% 700 MG Patch TOP PRN (14:13)
[2022-03-30] MEDS: metFORMIN 500 MG Tab PO SCH (18:26)
[2022-03-30] MEDS ORDERED: Furosemide 40 MG Tab PO SCH (20:00)
[2022-03-30] MEDS ORDERED: ACETAMINOPHEN 500 MG PO SCH (20:00)
[2022-03-30] MEDS: Melatonin 3 MG Tab PO PRN (20:00)
[2022-03-30] MEDS ORDERED: Non-Formulary Medication 1 Each (Potassium Chloride [Potassium Chloride] 20 MEQ Tablet.Er) PO SCH (20:00)
[2022-03-30] MEDS: traMADol 50 MG Tab PO PRN (20:00)
[2022-03-30] MEDS: Acetaminophen 500 MG Tab PO SCH (20:02)
[2022-03-30] MEDS: Furosemide 20 MG Tab PO SCH (20:04)
[2022-03-30] MEDS: Potassium Chloride 20 MEQ Tab.ER PO SCH (20:05)
[2022-03-30] MEDS: Docusate Sodium 100 MG Cap PO SCH (20:05)
[2022-03-31] MEDS ORDERED: Non-Formulary Medication 1 Each (Lactobacillus Acidophilus [Acidophilus] 1 EACH Tablet) PO SCH (08:00)
[2022-03-31] MEDS: Lactobacillus Acidophilus/Lactobacillus Sporogenes (Probiotic) Tab PO SCH (08:03)
[2022-03-31] MEDS: Polyethylene Glycol 3350 Powder 17 GM Packet PO SCH (08:03)
[2022-03-31] MEDS: Calcitonin (Salmon) Nasal Spray 3.7 ML Bottle NAS SCH (08:03)
[2022-03-31] MEDS: metFORMIN 500 MG Tab PO SCH ×2 (08:03→17:24)
[2022-03-31] MEDS: predniSONE 20 MG Tab PO SCH (08:04)
[2022-03-31] MEDS: Omeprazole 20 MG Cap.CR PO SCH (08:04)
[2022-03-31] MEDS: Acetaminophen 500 MG Tab PO SCH ×3 (08:04→19:41)
[2022-03-31] MEDS: Calcium Carbonate 500 MG Tab.Chew PO PRN (08:04)
[2022-03-31] MEDS: Docusate Sodium 100 MG Cap PO SCH ×2 (08:04→19:41)
[2022-03-31] MEDS: Furosemide 20 MG Tab PO SCH ×2 (08:04→15:14)
[2022-03-31] MEDS: Cholecalciferol (Vitamin D3) 2,000 Unit Cap PO SCH (08:04)
[2022-03-31] MEDS: Potassium Chloride 20 MEQ Tab.ER PO SCH ×2 (08:04→19:42)
[2022-04-01] MEDS: metFORMIN 500 MG Tab PO SCH ×2 (07:44→17:43)
[2022-04-01] MEDS: Omeprazole 20 MG Cap.CR PO SCH (07:44)
[2022-04-01] MEDS: Cholecalciferol (Vitamin D3) 2,000 Unit Cap PO SCH (07:44)
[2022-04-01] MEDS: Acetaminophen 500 MG Tab PO SCH ×3 (07:44→20:17)
[2022-04-01] MEDS: Docusate Sodium 100 MG Cap PO SCH ×2 (07:44→20:15)
[2022-04-01] MEDS: predniSONE 20 MG Tab PO SCH (07:44)
[2022-04-01] MEDS: Polyethylene Glycol 3350 Powder 17 GM Packet PO SCH (07:44)
[2022-04-01] MEDS: Potassium Chloride 20 MEQ Tab.ER PO SCH ×2 (07:44→20:16)
[2022-04-01] MEDS: Calcitonin (Salmon) Nasal Spray 3.7 ML Bottle NAS SCH (07:44)
[2022-04-01] MEDS: Furosemide 20 MG Tab PO SCH ×2 (07:45→15:47)
[2022-04-01] MEDS: Calcium Carbonate 500 MG Tab.Chew PO PRN (07:45)
[2022-04-01] MEDS: Lactobacillus Acidophilus/Lactobacillus Sporogenes (Probiotic) Tab PO SCH (07:45)
[2022-04-01] MEDS: Melatonin 3 MG Tab PO PRN (20:16)
[2022-04-01] MEDS: traMADol 50 MG Tab PO PRN (20:18)
[2022-04-02 07:44] VITALS: BP 154/91; PULSE 87
[2022-04-02] MEDS: metFORMIN 500 MG Tab PO SCH (07:53)
[2022-04-02] MEDS: Furosemide 20 MG Tab PO SCH (07:55)
[2022-04-02] MEDS: Docusate Sodium 100 MG Cap PO SCH (07:56)
[2022-04-02] MEDS: Cholecalciferol (Vitamin D3) 2,000 Unit Cap PO SCH (07:56)
[2022-04-02] MEDS: Omeprazole 20 MG Cap.CR PO SCH (07:56)
[2022-04-02] MEDS: Potassium Chloride 20 MEQ Tab.ER PO SCH (07:57)
[2022-04-02] MEDS: Acetaminophen 500 MG Tab PO SCH (07:58)
[2022-04-02] MEDS: predniSONE 20 MG Tab PO SCH (07:58)
[2022-04-02] MEDS: Lactobacillus Acidophilus/Lactobacillus Sporogenes (Probiotic) Tab PO SCH (07:59)
[2022-04-02] MEDS: Polyethylene Glycol 3350 Powder 17 GM Packet PO SCH (09:02)
[2022-04-02] MEDS: Calcitonin (Salmon) Nasal Spray 3.7 ML Bottle NAS SCH (09:04)
== END 2022-04-02 11:50 | DRG 561 ==
LOC: LB.MS 15:22
PROVIDERS: ADMIT Physician Assistant; ATTEND Nurse Practitioner Family
DX: Z47.1 Aftercare following joint replacement surgery (principal); K21.9 Gastro-esophageal reflux disease without esophagitis; I11.0 Hypertensive heart disease with heart failure; I50.9 Heart failure, unspecified; J45.909 Unspecified asthma, uncomplicated; M19.90 Unspecified osteoarthritis, unspecified site; E11.9 Type 2 diabetes mellitus without complications; F32.A Depression, unspecified; F41.9 Anxiety disorder, unspecified; Z96.653 Presence of artificial knee joint, bilateral; Z20.822 Contact with and (suspected) exposure to COVID-19; Z86.73 Personal history of transient ischemic attack (TIA), and cerebral infarction without residual deficits; Z90.49 Acquired absence of other specified parts of digestive tract; Z79.52 Long term (current) use of systemic steroids; Z79.899 Other long term (current) drug therapy; Z79.82 Long term (current) use of aspirin; Z88.8 Allergy status to other drugs, medicaments and biological substances
CPT/HCPCS: 82947; 92526-GN; 97110-GP; 97530-GO; 97530-GP; 97535-GO; 99305; 99315; A9270-GY; J7512; U0002